=== PATIENT | female | born 1935 | race Caucasian/White ===

== ENCOUNTER → 2019-10-15 10:48 | Outpatient (BNVA) | payer MEDICARE, OTHER, SELFPAY | PROVIDERS: Family Provider Electrodiagnostic Medicine; Visit Provider Internal Medicine Cardiovascular Disease | DX: I48.91 Unspecified atrial fibrillation (principal) | CPT/HCPCS: 85610 ==

== ENCOUNTER → 2019-11-12 10:58 | Outpatient (BNVA) | payer MEDICARE, OTHER, SELFPAY | PROVIDERS: Family Provider Electrodiagnostic Medicine; Visit Provider Internal Medicine Cardiovascular Disease | DX: I48.91 Unspecified atrial fibrillation (principal) | CPT/HCPCS: 85610 ==

== ENCOUNTER → 2019-12-10 10:46 | Outpatient (BNVA) | payer MEDICARE, OTHER, SELFPAY | PROVIDERS: Family Provider Electrodiagnostic Medicine; Visit Provider Internal Medicine Cardiovascular Disease | DX: I48.91 Unspecified atrial fibrillation (principal) | CPT/HCPCS: 85610 ==

== ENCOUNTER 2020-02-07 15:20 | Outpatient (CLI) | payer MEDICARE, OTHER, SELFPAY ==
[2020-02-07 15:28] VITALS: BP 132/63; PULSE 62; RESP 16; TEMP 36.8; O2SAT 97
--- NOTE | 2020-02-07 15:29 | PC.NURSE ---
Contacted Dr. Kumar's nurse Leti regarding Creat level. States PCP aware and to proceed with Prolia orders.
[2020-02-07] MEDS: denosumab 60 mg SDV SUBCUT (15:36)
[2020-02-07 15:50] VITALS: BP 128/66; PULSE 64; RESP 16; TEMP 36.6; O2SAT 97
== END 2020-02-07 15:21 | disposition home or self-care (01) ==
LOC: RHEOACUTE 15:21
PROVIDERS: Family Provider Electrodiagnostic Medicine; PCP Electrodiagnostic Medicine; Visit Provider Internal Medicine Rheumatology
DX: M81.0 Age-related osteoporosis without current pathological fracture (principal); I48.91 Unspecified atrial fibrillation; Z79.01 Long term (current) use of anticoagulants
CPT/HCPCS: 85610; 96372; J0897

== ENCOUNTER → 2020-02-14 10:29 | Outpatient (BNVA) | payer MEDICARE, OTHER, SELFPAY | PROVIDERS: Family Provider Electrodiagnostic Medicine; PCP Electrodiagnostic Medicine; Visit Provider Internal Medicine Cardiovascular Disease | DX: I48.0 Paroxysmal atrial fibrillation (principal) | CPT/HCPCS: 85610 ==

== ENCOUNTER → 2020-02-21 10:17 | Outpatient (BNVA) | payer MEDICARE, OTHER, SELFPAY | PROVIDERS: Family Provider Electrodiagnostic Medicine; PCP Electrodiagnostic Medicine; Visit Provider Internal Medicine Cardiovascular Disease | DX: I48.0 Paroxysmal atrial fibrillation (principal) | CPT/HCPCS: 85610 ==

== ENCOUNTER → 2020-03-06 11:11 | Outpatient (BNVA) | payer MEDICARE, OTHER, SELFPAY | PROVIDERS: Family Provider Electrodiagnostic Medicine; PCP Electrodiagnostic Medicine; Visit Provider Internal Medicine Cardiovascular Disease | DX: I48.0 Paroxysmal atrial fibrillation (principal); Z79.01 Long term (current) use of anticoagulants | CPT/HCPCS: 85610 ==

== ENCOUNTER → 2020-03-13 10:34 | Outpatient (BNVA) | payer MEDICARE, OTHER, SELFPAY | PROVIDERS: Family Provider Electrodiagnostic Medicine; PCP Electrodiagnostic Medicine; Visit Provider Internal Medicine Cardiovascular Disease | DX: I48.0 Paroxysmal atrial fibrillation (principal) | CPT/HCPCS: 85610 ==

== ENCOUNTER → 2020-04-10 10:32 | Outpatient (BNVA) | payer MEDICARE, OTHER, SELFPAY | PROVIDERS: Family Provider Electrodiagnostic Medicine; PCP Electrodiagnostic Medicine; Visit Provider Internal Medicine Cardiovascular Disease | DX: I48.0 Paroxysmal atrial fibrillation (principal); Z79.01 Long term (current) use of anticoagulants | CPT/HCPCS: 85610 ==

== ENCOUNTER → 2020-04-15 13:02 | Outpatient (BNVA) | payer MEDICARE, OTHER, SELFPAY | PROVIDERS: Family Provider Electrodiagnostic Medicine; PCP Electrodiagnostic Medicine; Visit Provider Internal Medicine Rheumatology | DX: M81.0 Age-related osteoporosis without current pathological fracture (principal); Z79.899 Other long term (current) drug therapy; N18.3 Chronic kidney disease, stage 3 (moderate) | CPT/HCPCS: 99203 ==

== ENCOUNTER → 2020-05-08 10:09 | Outpatient (BNVA) | payer MEDICARE, OTHER, SELFPAY | PROVIDERS: Family Provider Electrodiagnostic Medicine; PCP Electrodiagnostic Medicine; Visit Provider Internal Medicine Cardiovascular Disease | DX: I48.0 Paroxysmal atrial fibrillation (principal) | CPT/HCPCS: 85610 ==

== ENCOUNTER 2020-05-20 08:30 | Outpatient (RCR) | payer MEDICARE, OTHER, SELFPAY | END 2020-05-26 23:59 | disposition home or self-care (01) | LOC: SPT 08:30 | PROVIDERS: PCP Electrodiagnostic Medicine; Referring Provider Electrodiagnostic Medicine; Visit Provider Electrodiagnostic Medicine | DX: R26.81 Unsteadiness on feet (principal) | CPT/HCPCS: 97110; 97161 ==

== ENCOUNTER 2020-05-27 06:00 | Outpatient (RCR) | payer MEDICARE, OTHER, SELFPAY | END 2020-06-25 23:59 | disposition home or self-care (01) | LOC: SPT 06:00 | PROVIDERS: PCP Electrodiagnostic Medicine; Referring Provider Electrodiagnostic Medicine; Visit Provider Electrodiagnostic Medicine | DX: R26.81 Unsteadiness on feet (principal) | CPT/HCPCS: 97110 ==

== ENCOUNTER → 2020-06-05 10:26 | Outpatient (BNVA) | payer MEDICARE, OTHER, SELFPAY | PROVIDERS: PCP Electrodiagnostic Medicine; Visit Provider Internal Medicine Cardiovascular Disease | DX: I48.0 Paroxysmal atrial fibrillation (principal) | CPT/HCPCS: 85610 ==

== ENCOUNTER 2020-06-06 09:23 | Outpatient (CLI) | payer MEDICARE, OTHER, SELFPAY ==
--- NOTE | 2020-06-06 09:29 | US_ITS ---
WS: [id number] ULTRASOUND RENAL TECHNIQUE: Ultrasound examination of both kidneys. CLINICAL INFORMATION: CHRONIC KIDNEY DZ STAGE 3 COMPARISON: None. FINDINGS: RIGHT: Right kidney is normal in size and appearance. Echogenicity: Normal. Cortical thickness: 1.2 cm; Normal. Hydronephrosis: None. Perinephric fluid: None. Right kidney measures: 9.4 cm x 4.7 cm x 2.8 cm. LEFT: Simple left renal cyst measuring 2.6 x 2.3 x 2.2 cm in the mid left kidney. Additional smaller renal cyst inferior pole measuring 1.5 x 1.1 x 1.7 cm Left kidney is normal in size and appearance. Echogenicity: Normal. Cortical thickness: 1.3 cm; Normal. Hydronephrosis: None. Perinephric fluid: None. Left kidney measures: 10.7 cm x 4.2 cm x 3.8 cm. Normal visualized aorta. Normal bladder. US/US renal BI* [id number] IMPRESSION: 1. No hydronephrosis in either kidney. 2. Normal bladder. 3. Left renal cysts the largest measuring 2.6 x 2.3 x 2.2 cm
== END 2020-06-06 09:24 | disposition home or self-care (01) ==
LOC: RAD 09:27
PROVIDERS: PCP Electrodiagnostic Medicine; Visit Provider Internal Medicine Nephrology
DX: N18.3 Chronic kidney disease, stage 3 (moderate) (principal); Q61.02 Congenital multiple renal cysts
CPT/HCPCS: 76770

== ENCOUNTER 2020-06-23 10:22 | Emergency (ER) | payer MEDICARE, OTHER, SELFPAY ==
[2020-06-23 10:28] VITALS: BP 157/62; PULSE 65; RESP 16; TEMP 36.9; O2SAT 99; BMI 24.2
--- NOTE | 2020-06-23 10:32 | W.ED.NAVMDI ---
HPI - Nausea/Vomiting/Diarrhea General: Chief complaint: Nausea/Vomiting/Diarrhea Stated complaint: N/V/D Time Seen by Provider: 06/23/20 10:27 History of Present Illness: HPI Narrative: 85-year-old female waning of diarrhea nausea and vomiting that started2 to 3 days ago. She denies any anosmia any cough. She has had some myalgias. No known COVID-19 exposures. Has any medic easy melena hematemesis or coffee-ground emesis no chest pain. She has had a little bit of shortness of breath. MD elicited complaint: nausea, vomiting and diarrhea Pertinent past history: abdominal surgery Onset (ago): day(s) (3) Description of vomiting: bilious Description of diarrhea: lose Associated nausea: Yes Associated abdominal pain: No Location of pain: None Exacerbating factors: none Relieving factors: none Associated symtoms: Reports fatigue, anorexia, malaise, myalgias, nausea, palpitations, short of breath and weakness; Denies altered mental status, anxiety, bloating, change in vision, chest pain, cough, diaphoresis, decreased urine output, dizziness, dysuria, epistaxis, fecal incontinence, fevers/chills, headache(s), numbness, rash, syncope, tenesmus or tinnitus Review of Systems Const: Reports: fatigue and malaise; Denies: diaphoresis Eyes: Denies: change in vision ENMT: Denies: tinnitus or epistaxis Card: Reports: palpitations; Denies: chest pain or syncope Resp: Denies: dyspnea, productive cough or non-productive cough GI: Reports: nausea; Denies: bloating or fecal incontinence : Denies: dysuria Skin/Breast: Denies: rash or pruritus Neuro: Denies: headache(s) or dizziness Psych: Denies: anxiety PFSH ED PFSH: Medical History Atrial fibrillation CKD (chronic kidney disease) stage 3, GFR 30-59 ml/min Heart disease High risk medication use Hypercholesteremia Infectious hepatitis 1968 Osteoporosis Surgical History History of resection of large bowel S/P appendectomy S/P cataract extraction S/P colonoscopy with polypectomy Family History Father Cancer Myocardial infarction CAD (coronary artery disease) Brother Cancer Myocardial infarction Stroke CAD (coronary artery disease) Sister Cancer Myocardial infarction Stroke Hypertension CAD (coronary artery disease) Mother Myocardial infarction CAD (coronary artery disease) Daughter Stroke Other Anesthesia complication Family history of premature coronary artery disease Hyperlipidemia Rheumatoid arthritis Denies family history of Lupus Social History Smoking and tobacco status: never smoked Alcohol intake: never History of recent travel: No Physical Exam Const: COMMON NORMALS: no acute distress EXAM LIMITATIONS: no altered mental status GENERAL APPEARANCE: cooperative and comfortable ORIENTATION/CONSCIOUSNESS: Yes awake, Yes oriented to person, Yes oriented to place and Yes oriented to time HENMT: COMMON NORMALS: normocephalic and hearing grossly normal bilaterally HEAD & SCALP: normocephalic Eye: COMMON NORMALS: Equal, round and reactive pupils present, EOMs intact bilaterally, conjunctivae normal and no scleral icterus CONJUNCTIVA: Yes conjunctivae normal PUPIL: Yes Equal, round and reactive pupils present Neck/C-Spine: COMMON NORMALS: no JVD Resp: COMMON NORMALS: normal respiratory effort, No retractions, No use of accessory muscles and clear to auscultation bilaterally AUSCULTATION: clear to auscultation bilaterally Cardio: COMMON NORMALS: no JVD, regular rate, regular rhythm and No murmurs present (Cardio) RATE: regular rate RHYTHM: regular rhythm GI: COMMON NORMALS: Soft to palpation and No hepatosplenomegaly present AUSCULTATION: Yes normoactive bowel sounds PALPATION: Yes Soft to palpation, No Tenderness to palpation present (GI), No Guarding due to palpation present (GI) and Yes No hepatosplenomegaly present Extremity: COMMON NORMALS: normal to inspection, capillary refill normal, no clubbing, cyanosis or edema, no calf tenderness and no pedal edema Neuro: SENSORIUM/ORIENTATION: Yes oriented to person, Yes oriented to place and Yes oriented to time Skin: COMMON NORMALS: no rashes or lesions noted GENERAL SKIN EXAM: no rashes or lesions noted Course Vital Signs: Vital signs: Vital Signs Temperature 98.4 F 06/23/20 10:28 Pulse Rate 70 06/23/20 14:21 Respiratory Rate 15 06/23/20 14:21 Blood Pressure 148/75 06/23/20 14:21 Pulse Oximetry 97 06/23/20 14:21 MDM - Nausea/Vomiting/Diarrhea MDM Narrative: Medical decision making narrative: Suspected COVID-19 infection patient's vitals are good we will go ahead and discharge home. Encourage oral fluids follow-up with primary care doctor in the next 1 to 2 days if has any further problems return to the emergency room. Tracheally encourage patient to return if she has any problems with breathing. Lab Data: Labs: Lab Results 06/23/20 06/23/20 06/23/20 Range/Units 11:00 11:00 11:00 WBC 5.7 (4.0-10.0) 10^3/ uL RBC 4.07 L (4.1-5.3) 10^6/u L Hgb 11.3 L (11.5-15.3) g/dL Hct 36.1 L (37.0-47.0) % MCV 88.7 (81-99) fL MCH 27.8 L (28.0-34.0) pg MCHC 31.3 (30.0-36.0) g/dL RDW 15.2 H (12.1-15.1) % Plt Count 169 (130-400) 10^3/c mm MPV 10.9 H (7.4-10.4) fL Neut % (Auto) 67.5 % Lymph % (Auto) 23.6 % [place] % (Auto) 6.9 % Eos % (Auto) 1.6 % Baso % (Auto) 0.2 % Neut # (Auto) 3.84 (1.8-7.7) 10^3/u L Lymph # (Auto) 1.3 (0.8-4.8) 10^3/u L [place] # (Auto) 0.4 (0.2-0.9) 10^3/u L Eos # (Auto) 0.1 (0.0-0.8) 10^3/u L Baso # (Auto) 0.0 (0.0-0.1) 10^3/u L Nucleated RBC % (a uto) 0 % Nucleated RBCs # 0.0 /100WBC Fibrinogen 599 H (174-498) mg/dL D-Dimer 0.37 (0-0.59) ug/mIFE U Sodium 138 (136-145) mmol/L Potassium 3.3 L (3.5-5.1) mmol/L Chloride 99 (98-107) mmol/L Carbon Dioxide 23 (22-29) mmol/L Anion Gap 19.3 H (5-19) BUN 39 H (8-23) mg/dL Creatinine 2.1 H (0.5-0.9) mg/dL GFR Calculation Not Reportable Glucose 124 H (65-115) mg/dL Calculated Osmolal ity 297 H (285-295) mOsm/k g Lactic Acid (0.5-2.2) mmol/L Calcium 9.4 (8.5-10.5) mg/dL Total Bilirubin 0.5 (0.15-1.2) mg/dL AST 41 H (0-32) U/L ALT 32 (0-33) U/L Alkaline Phosphata se 79 (35-105) IU/L Lactate Dehydrogen ase 230 H (135-214) U/L C-Reactive Protein 5.9 H (0.0-4.9) mg/L Total Protein 7.9 (6.6-8.7) g/dL Albumin 4.4 (3.5-5.2) g/dL Globulin 3.5 (1.3-4.6) g/dL Urine Color (Yellow) Urine Appearance (CLEAR) Urine pH (5-7) Ur Specific Gravit y (1.005-1.030) Urine Protein (Negative) Urine Glucose (UA) (Normal) Urine Ketones (Negative) Urine Blood (Negative) Urine Nitrate (Negative) Urine Bilirubin (Negative) Urine Urobilinogen (Negative) mg/dL Ur Leukocyte Breana ase (Negative) SARS-CoV-2 RNA (RT -PCR) (NOT DETECTED) 06/23/20 06/23/20 06/23/20 Range/Units 11:00 11:00 12:45 WBC (4.0-10.0) 10^3/ uL RBC (4.1-5.3) 10^6/u L Hgb (11.5-15.3) g/dL Hct (37.0-47.0) % MCV (81-99) fL MCH (28.0-34.0) pg MCHC (30.0-36.0) g/dL RDW (12.1-15.1) % Plt Count (130-400) 10^3/c mm MPV (7.4-10.4) fL Neut % (Auto) % Lymph % (Auto) % [place] % (Auto) % Eos % (Auto) % Baso % (Auto) % Neut # (Auto) (1.8-7.7) 10^3/u L Lymph # (Auto) (0.8-4.8) 10^3/u L [place] # (Auto) (0.2-0.9) 10^3/u L Eos # (Auto) (0.0-0.8) 10^3/u L Baso # (Auto) (0.0-0.1) 10^3/u L Nucleated RBC % (a uto) % Nucleated RBCs # /100WBC Fibrinogen (174-498) mg/dL D-Dimer (0-0.59) ug/mIFE U Sodium (136-145) mmol/L Potassium (3.5-5.1) mmol/L Chloride (98-107) mmol/L Carbon Dioxide (22-29) mmol/L Anion Gap (5-19) BUN (8-23) mg/dL Creatinine (0.5-0.9) mg/dL GFR Calculation Glucose (65-115) mg/dL Calculated Osmolal ity (285-295) mOsm/k g Lactic Acid 2.1 (0.5-2.2) mmol/L Calcium (8.5-10.5) mg/dL Total Bilirubin (0.15-1.2) mg/dL AST (0-32) U/L ALT (0-33) U/L Alkaline Phosphata se (35-105) IU/L Lactate Dehydrogen ase (135-214) U/L C-Reactive Protein (0.0-4.9) mg/L Total Protein (6.6-8.7) g/dL Albumin (3.5-5.2) g/dL Globulin (1.3-4.6) g/dL Urine Color Yellow (Yellow) Urine Appearance Clear (CLEAR) Urine pH 5 (5-7) Ur Specific Gravit y 1.025 (1.005-1.030) Urine Protein Neg (Negative) Urine Glucose (UA) Norm (Normal) Urine Ketones Negative (Negative) Urine Blood Neg (Negative) Urine Nitrate Negative (Negative) Urine Bilirubin Neg (Negative) Urine Urobilinogen Norm (Negative) mg/dL Ur Leukocyte Breana ase Negative (Negative) SARS-CoV-2 RNA (RT -PCR) Detected A (NOT DETECTED) Discharge Plan Discharge Patient Disposition: Home Clinical Impression: Suspected COVID-19 virus infection Condition: Stable Prescriptions: No Action diltiazem HCl 180 mg capsule,extended release 24hr 180 mg PO DAILY RF: 0 lisinopril-hydrochlorothiazide 20-25 mg tablet 1 tab PO DAILY RF: 0 atorvastatin 20 mg tablet 20 mg PO DAILY RF: 0 warfarin 3 mg tablet 3 mg PO DIRECTED Qty: 90 RF: 3 metoprolol succinate 100 mg tablet extended release 24 hr 100 mg PO DAILY 90 Days Qty: 90 RF: 3 metoprolol succinate 25 mg tablet extended release 24 hr 25 mg PO DAILY 90 Days Qty: 90 RF: 3 warfarin 1 mg tablet 1 mg PO DIRECTED Qty: 90 RF: 3 Vitamin D3 25 mcg (1,000 unit) Capsule 50 mcg PO DAILY RF: 0 Lasix 20 mg Tablet 20 mg PO DAILY RF: 0 Discharge Orders: Discharge Order (Routine); Ordered 06/23/20 Ordered By: Zachariah Queen Referrals: Michael Kumar, DO [Primary Care Provider] - Activity Restrictions/Additional Instructions: Suspect you do have COVID-19 infection. Recommend that you remain in self quarantine until the results are available. If you have worsening difficulty with breathing return immediately. Discharge Date/Time: 06/23/20 14:22 Coding Level of Care Code ED Improvement Lead for Lane Fwd Exam Comprehensive
--- NOTE | 2020-06-23 10:41 | XRR_ITS ---
PROCEDURE INFORMATION: Exam: XR Chest, 1 View Exam date and time: 06/23/2020 10:42 AM Age: 85 years old Clinical indication: Dyspnea TECHNIQUE: Imaging protocol: XR of the chest Views: 1 view. COMPARISON: CR Chest 1 [place] [id number] 09/08/2018 6:30 PM FINDINGS: Lungs: Interstitial prominence and questionable left basilar airspace disease, which can be better evaluated with PA and lateral chest radiographs, if clinically indicated. Pleural space: No significant pleural effusion. Heart/Mediastinum: No cardiomegaly. Bones/joints: Osteopenia and degenerative change. Other findings: Brassiere artifact. XR/XR chest 1V portable [id number] IMPRESSION: Interstitial prominence and questionable left basilar airspace disease, which can be better evaluated with PA and lateral chest radiographs, if clinically indicated.
[2020-06-23 11:22] LABS: Basophils % 0.2 %; Eosinophils # 0.1 10^3/uL (0.0-0.8); Eosinophils % 1.6 %; Hematocrit 36.1 % (37.0-47.0); Hemoglobin 11.3 g/dL (11.5-15.3); Lymphocytes # 1.3 10^3/uL (0.8-4.8); Lymphocytes % 23.6 %; Mean Corpuscular HGB Conc 31.3 g/dL (30.0-36.0); Mean Corpuscular Hemoglobin 27.8 pg (28.0-34.0); Mean Corpuscular Volume 88.7 fL (81-99); Mean Platelet Volume 10.9 fL (7.4-10.4); Monocytes # 0.4 10^3/uL (0.2-0.9); Monocytes % 6.9 %; Neutrophils # 3.84 10^3/uL (1.8-7.7); Neutrophils % 67.5 %; Nucleated Red Blood Cells % 0 %; Platelet Count 169 10^3/cmm (130-400); Red Blood Count 4.07 10^6/uL (4.1-5.3); Red Cell Distribution Width 15.2 % (12.1-15.1); White Blood Count 5.7 10^3/uL (4.0-10.0)
[2020-06-23 11:23] VITALS: BP 132/64; BP 137/55; BP 93/56; PULSE 56; PULSE 64; PULSE 76
[2020-06-23] MEDS: sodium chloride 0.9% 500 ML 999 ML IV (11:27)
[2020-06-23 11:34] LABS: Fibrinogen 599 mg/dL (174-498)
[2020-06-23 11:36] LABS: D Dimer 0.37 ug/mIFEU (0-0.59)
[2020-06-23 11:40] LABS: Alanine Aminotransferase 32 U/L (0-33); Albumin Level 4.4 g/dL (3.5-5.2); Alkaline Phosphatase 79 IU/L (35-105); Anion Gap 19.3 (5-19); Aspartate Amino Transferase 41 U/L (0-32); Blood Urea Nitrogen 39 mg/dL (8-23); C Reactive Protein 5.9 mg/L (0.0-4.9); Calcium 9.4 mg/dL (8.5-10.5); Carbon Dioxide 23 mmol/L (22-29); Chloride 99 mmol/L (98-107); Globulin 3.5 g/dL (1.3-4.6); Glucose 124 mg/dL (65-115); Lactate Dehydrogenase 230 U/L (135-214); Lactic Sepsis W/Reflex 2.1 mmol/L (0.5-2.2); Osmolality Calculated 297 mOsm/kg (285-295); Potassium 3.3 mmol/L (3.5-5.1); Sodium 138 mmol/L (136-145); Total Bilirubin 0.5 mg/dL (0.15-1.2); Total Protein 7.9 g/dL (6.6-8.7)
--- NOTE | 2020-06-23 12:38 | PC.NURSE ---
Read and agree with assessment.
[2020-06-23] MEDS: potassium chloride oral liq 20 mEq/15 mL UDC 40 MEQ PO (12:48)
[2020-06-23] MEDS: ondansetron 2 mg/ML SDV 2 mL 4 MG IVP (12:48)
[2020-06-23 12:57] LABS: Add Urine Microscopic? NO
[2020-06-23 13:01] LABS: Bilirubin Urine Neg (Negative); Blood Urine Neg (Negative); Glucose Urine UA Norm (Normal); Ketones Urine Negative (Negative); Leukocyte Esterase Urine Negative (Negative); Nitrate Urine Negative (Negative); Protein Urine Neg (Negative); Specific Gravity, Urine 1.025 (1.005-1.030); Urine Appearance Clear (CLEAR); Urine Color Yellow (Yellow); Urobilinogen Urine Norm (Negative); pH Urine 5 (5-7)
[2020-06-23 13:03] LABS: Reflex Lactate Order REFLEX LACTIC ORDERD
[2020-06-23 14:08] VITALS: PULSE 61; RESP 18; O2SAT 100
[2020-06-23 14:21] VITALS: BP 148/75; PULSE 70; RESP 15; O2SAT 97
[2020-06-24 19:12] LABS: Quest SARS-CoV-2 RNA DETECTED (NOT DETECTED)
--- NOTE | 2020-06-25 09:31 | PC.NURSE ---
pt called and given the results of her covid test
== END 2020-06-23 14:22 | disposition home or self-care (01) ==
PROVIDERS: Emergency Provider Family Medicine; PCP Electrodiagnostic Medicine
DX: U07.1 COVID-19 (principal); Z79.01 Long term (current) use of anticoagulants; I48.91 Unspecified atrial fibrillation; N18.3 Chronic kidney disease, stage 3 (moderate)
CPT/HCPCS: 12345; 71045; 80053; 81003; 83605; 83615; 85025; 85378; 85384; 86140; 87635; 96374; 99283; 99284; J2405; J7040

== ENCOUNTER → 2020-07-17 10:43 | Outpatient (BNVA) | payer MEDICARE, OTHER, SELFPAY | PROVIDERS: PCP Electrodiagnostic Medicine; Visit Provider Internal Medicine Cardiovascular Disease | DX: I48.0 Paroxysmal atrial fibrillation (principal) | CPT/HCPCS: 85610 ==

== ENCOUNTER → 2020-07-29 10:03 | Outpatient (BNVA) | payer MEDICARE, OTHER, SELFPAY | PROVIDERS: PCP Electrodiagnostic Medicine; Visit Provider Internal Medicine Rheumatology | DX: Z79.899 Other long term (current) drug therapy (principal) | CPT/HCPCS: 36415; 82310; 82565 ==

== ENCOUNTER 2020-08-11 10:40 | Outpatient (CLI) | payer MEDICARE, OTHER, SELFPAY ==
[2020-08-11 10:30] VITALS: BP 120/60; PULSE 66; RESP 18; TEMP 36.8; O2SAT 98
[2020-08-11 10:45] VITALS: BMI 30.3
[2020-08-11] MEDS: denosumab 60 mg SDV SUBCUT (10:46)
[2020-08-11 11:14] VITALS: BP 123/58; PULSE 16; RESP 16; TEMP 36.2; O2SAT 98
== END 2020-08-11 10:41 | disposition home or self-care (01) ==
LOC: RHEOACUTE 10:41
PROVIDERS: Family Provider Electrodiagnostic Medicine; PCP Electrodiagnostic Medicine; Visit Provider Internal Medicine Rheumatology
DX: M81.0 Age-related osteoporosis without current pathological fracture (principal); N18.30 Chronic kidney disease, stage 3 unspecified; Z79.899 Other long term (current) drug therapy
CPT/HCPCS: 96372; 99213; J0897

== ENCOUNTER → 2020-08-25 10:45 | Outpatient (BNVA) | payer MEDICARE, OTHER, SELFPAY | PROVIDERS: PCP Electrodiagnostic Medicine; Visit Provider Internal Medicine Cardiovascular Disease | DX: I48.0 Paroxysmal atrial fibrillation (principal) | CPT/HCPCS: 85610 ==

== ENCOUNTER → 2020-09-22 10:39 | Outpatient (BNVA) | payer MEDICARE, OTHER, SELFPAY | PROVIDERS: PCP Electrodiagnostic Medicine; Visit Provider Internal Medicine Cardiovascular Disease | DX: I48.0 Paroxysmal atrial fibrillation (principal) | CPT/HCPCS: 85610 ==

== ENCOUNTER → 2020-09-29 14:43 | Outpatient (BNVA) | payer MEDICARE, OTHER, SELFPAY | PROVIDERS: PCP Electrodiagnostic Medicine; Visit Provider Internal Medicine Cardiovascular Disease | DX: I48.0 Paroxysmal atrial fibrillation (principal) | CPT/HCPCS: 85610 ==

== ENCOUNTER → 2020-10-06 10:12 | Outpatient (BNVA) | payer MEDICARE, OTHER, SELFPAY | PROVIDERS: PCP Electrodiagnostic Medicine; Visit Provider Internal Medicine Cardiovascular Disease | DX: I48.0 Paroxysmal atrial fibrillation (principal) | CPT/HCPCS: 85610 ==

== ENCOUNTER → 2020-10-20 10:52 | Outpatient (BNVA) | payer MEDICARE, OTHER, SELFPAY | PROVIDERS: PCP Electrodiagnostic Medicine; Visit Provider Internal Medicine Cardiovascular Disease | DX: I48.0 Paroxysmal atrial fibrillation (principal) | CPT/HCPCS: 85610 ==

== ENCOUNTER → 2020-10-27 10:41 | Outpatient (BNVA) | payer MEDICARE, OTHER, SELFPAY | PROVIDERS: PCP Electrodiagnostic Medicine; Visit Provider Internal Medicine Cardiovascular Disease | DX: I48.0 Paroxysmal atrial fibrillation (principal) | CPT/HCPCS: 85610 ==

== ENCOUNTER → 2020-11-17 10:08 | Outpatient (BNVA) | payer MEDICARE, OTHER, SELFPAY | PROVIDERS: PCP Electrodiagnostic Medicine; Visit Provider Internal Medicine Cardiovascular Disease | DX: I48.0 Paroxysmal atrial fibrillation (principal) | CPT/HCPCS: 85610 ==

== ENCOUNTER → 2020-11-24 10:07 | Outpatient (BNVA) | payer MEDICARE, OTHER, SELFPAY | PROVIDERS: PCP Electrodiagnostic Medicine; Visit Provider Internal Medicine Cardiovascular Disease | DX: I48.0 Paroxysmal atrial fibrillation (principal) | CPT/HCPCS: 85610 ==

== ENCOUNTER 2021-01-06 15:01 | Outpatient (CLI) | payer MEDICARE, OTHER, SELFPAY ==
--- NOTE | 2021-01-06 15:13 | XR_ITS ---
WS: [id number] SCREENING DEXA SCAN Pax8 CLINICAL INFORMATION: OSTEOPOROSIS, VITAMIN D DEFICIENCY COMPARISON: 019 FINDINGS: The L1-L4 bone mineral density measures 0.921 g/cm2. This corresponds to a T score score of -2.2 and Z score of -0.9. Left femoral neck bone mineral density measures 0.947 g/cm2. This corresponds to a T score of -0.5 an d Z score of 1.3. Right femoral neck bone mineral density measures 0.960 g/cm2. This corresponds to a T score -0.4of an d Z score of 1.4. Mean femoral neck bone mineral density measures 0.954 g/cm2. This corresponds to a T score of -0.4 an d Z score of 1.3. XR/XR DEXA axial skeleton* [id number] IMPRESSION: Osteopenia Patient's FRAX calculated 10 year probability for major osteoporotic fracture i s 12.8 % and osteoporotic hip fracture is 3.2%.
== END 2021-01-06 15:02 | disposition home or self-care (01) ==
LOC: RADWPI 15:10
PROVIDERS: PCP Electrodiagnostic Medicine; Visit Provider Electrodiagnostic Medicine
DX: M81.0 Age-related osteoporosis without current pathological fracture (principal); E55.9 Vitamin D deficiency, unspecified; M85.89 Other specified disorders of bone density and structure, multiple sites; I48.0 Paroxysmal atrial fibrillation
CPT/HCPCS: 77080; 85610

== ENCOUNTER 2021-02-04 14:38 | Outpatient (CLI) | payer MEDICARE, OTHER, SELFPAY ==
[2021-02-04 15:11] LABS: Basophils # 0.1 10^3/uL (0.0-0.1); Basophils % 0.6 %; Eosinophils # 0.4 10^3/uL (0.0-0.8); Eosinophils % 4.8 %; Hematocrit 34.3 % (37.0-47.0); Hemoglobin 10.6 g/dL (11.5-15.3); Lymphocytes # 2.2 10^3/uL (0.8-4.8); Lymphocytes % 25.2 %; Mean Corpuscular HGB Conc 30.9 g/dL (30.0-36.0); Mean Corpuscular Hemoglobin 28.4 pg (28.0-34.0); Mean Platelet Volume 11.1 fL (7.4-10.4); Monocytes # 0.5 10^3/uL (0.2-0.9); Neutrophils # 5.43 10^3/uL (1.8-7.7); Neutrophils % 63.2 %; Nucleated Red Blood Cells % 0 %; Platelet Count 214 10^3/cmm (130-400); Red Blood Count 3.73 10^6/uL (4.1-5.3); Red Cell Distribution Width 14.8 % (12.1-15.1); White Blood Count 8.6 10^3/uL (4.0-10.0)
[2021-02-04 15:29] LABS: Alanine Aminotransferase 15 U/L (0-33); Albumin Level 3.7 g/dL (3.5-5.2); Alkaline Phosphatase 96 IU/L (35-105); Aspartate Amino Transferase 22 U/L (0-32); Globulin 3.3 g/dL (1.3-4.6); Total Bilirubin 0.4 mg/dL (0.15-1.2)
== END 2021-02-04 14:39 | disposition home or self-care (01) ==
LOC: LAB 14:43
PROVIDERS: PCP Electrodiagnostic Medicine; Visit Provider Internal Medicine Rheumatology
DX: M81.0 Age-related osteoporosis without current pathological fracture (principal); Z79.899 Other long term (current) drug therapy
CPT/HCPCS: 36415; 80076; 82565; 85025

== ENCOUNTER → 2021-02-05 10:20 | Outpatient (BNVA) | payer MEDICARE, OTHER, SELFPAY | PROVIDERS: PCP Electrodiagnostic Medicine; Visit Provider Internal Medicine Cardiovascular Disease | DX: I48.0 Paroxysmal atrial fibrillation (principal) | CPT/HCPCS: 85610 ==

== ENCOUNTER → 2021-02-11 10:53 | Outpatient (BNVA) | payer MEDICARE, OTHER, SELFPAY | PROVIDERS: PCP Electrodiagnostic Medicine; Visit Provider Internal Medicine Rheumatology | DX: M81.0 Age-related osteoporosis without current pathological fracture (principal); Z79.899 Other long term (current) drug therapy; N18.30 Chronic kidney disease, stage 3 unspecified | CPT/HCPCS: 36415; 82040; 82306; 82310; 99214 ==

== ENCOUNTER 2021-02-26 13:28 | Outpatient (CLI) | payer MEDICARE, OTHER, SELFPAY ==
[2021-02-26 13:48] VITALS: BP 152/72; PULSE 64; RESP 18; TEMP 36.3; O2SAT 98
[2021-02-26] MEDS: denosumab 60 mg SDV SUBCUT (14:10)
[2021-02-26 14:19] VITALS: BP 160/66; PULSE 55; RESP 18; TEMP 36.3; O2SAT 99
== END 2021-02-26 13:29 | disposition home or self-care (01) ==
PROVIDERS: PCP Electrodiagnostic Medicine; Referring Provider Internal Medicine Rheumatology; Visit Provider Internal Medicine Rheumatology
DX: M81.0 Age-related osteoporosis without current pathological fracture (principal)
CPT/HCPCS: 96372; J0897

== ENCOUNTER → 2021-03-05 10:22 | Outpatient (BNVA) | payer MEDICARE, OTHER, SELFPAY | PROVIDERS: PCP Electrodiagnostic Medicine; Visit Provider Internal Medicine Cardiovascular Disease | DX: I48.0 Paroxysmal atrial fibrillation (principal) | CPT/HCPCS: 85610 ==

== ENCOUNTER → 2021-04-02 10:14 | Outpatient (BNVA) | payer MEDICARE, OTHER, SELFPAY | PROVIDERS: PCP Electrodiagnostic Medicine; Visit Provider Internal Medicine Cardiovascular Disease | DX: I48.0 Paroxysmal atrial fibrillation (principal); Z79.01 Long term (current) use of anticoagulants | CPT/HCPCS: 85610 ==

== ENCOUNTER → 2021-04-30 10:22 | Outpatient (BNVA) | payer MEDICARE, OTHER, SELFPAY | PROVIDERS: PCP Electrodiagnostic Medicine; Visit Provider Internal Medicine Cardiovascular Disease | DX: I48.0 Paroxysmal atrial fibrillation (principal) | CPT/HCPCS: 85610 ==

== ENCOUNTER → 2021-05-27 10:10 | Outpatient (BNVA) | payer MEDICARE, OTHER, SELFPAY | PROVIDERS: PCP Electrodiagnostic Medicine; Visit Provider Internal Medicine Cardiovascular Disease | DX: I48.0 Paroxysmal atrial fibrillation (principal); Z79.01 Long term (current) use of anticoagulants | CPT/HCPCS: 85610 ==

== ENCOUNTER → 2021-06-03 10:12 | Outpatient (BNVA) | payer MEDICARE, OTHER, SELFPAY | PROVIDERS: PCP Electrodiagnostic Medicine; Visit Provider Internal Medicine Cardiovascular Disease | DX: I48.0 Paroxysmal atrial fibrillation (principal); Z79.01 Long term (current) use of anticoagulants | CPT/HCPCS: 85610 ==

== ENCOUNTER → 2021-06-29 14:10 | Outpatient (BNVA) | payer MEDICARE, OTHER, SELFPAY | PROVIDERS: PCP Electrodiagnostic Medicine; Visit Provider Internal Medicine Cardiovascular Disease | DX: I48.0 Paroxysmal atrial fibrillation (principal) | CPT/HCPCS: 85610 ==

== ENCOUNTER → 2021-07-27 10:47 | Outpatient (BNVA) | payer MEDICARE, OTHER, SELFPAY | PROVIDERS: PCP Electrodiagnostic Medicine; Visit Provider Internal Medicine Cardiovascular Disease | DX: I48.0 Paroxysmal atrial fibrillation (principal); Z79.01 Long term (current) use of anticoagulants | CPT/HCPCS: 85610 ==

== ENCOUNTER → 2021-08-24 10:42 | Outpatient (BNVA) | payer MEDICARE, OTHER, SELFPAY | PROVIDERS: PCP Electrodiagnostic Medicine; Visit Provider Internal Medicine Cardiovascular Disease | DX: I48.0 Paroxysmal atrial fibrillation (principal); Z79.01 Long term (current) use of anticoagulants | CPT/HCPCS: 85610 ==

== ENCOUNTER 2021-08-31 12:57 | Outpatient (CLI) | payer MEDICARE, OTHER, SELFPAY ==
[2021-08-31 15:02] LABS: Albumin Level 4.2 g/dL (3.5-5.2); Calcium 9.3 mg/dL (8.5-10.5)
[2021-08-31 15:49] VITALS: BP 155/68; PULSE 55; RESP 18; TEMP 36; O2SAT 98
[2021-08-31] MEDS: denosumab 60 mg SDV SUBCUT (15:53)
[2021-09-05 14:06] LABS: Vit D 1,25 (Oh)2, Total 34 pg/mL (18-72); Vit D2 1,25 (Oh)2 <8 pg/mL; Vit D3 1,25 (Oh)2 34 pg/mL
== END 2021-08-31 12:58 | disposition home or self-care (01) ==
LOC: ONCMED 13:00
PROVIDERS: Internal Medicine Rheumatology; PCP Electrodiagnostic Medicine; Visit Provider Internal Medicine Medical Oncology
DX: M81.0 Age-related osteoporosis without current pathological fracture (principal); E55.9 Vitamin D deficiency, unspecified; I48.0 Paroxysmal atrial fibrillation; Z79.899 Other long term (current) drug therapy
CPT/HCPCS: 36415; 82040; 82310; 82565; 82652; 85610; 96372; J0897

== ENCOUNTER → 2021-09-14 10:49 | Outpatient (BNVA) | payer MEDICARE, OTHER, SELFPAY | PROVIDERS: PCP Electrodiagnostic Medicine; Visit Provider Internal Medicine Cardiovascular Disease | DX: I48.0 Paroxysmal atrial fibrillation (principal); Z79.01 Long term (current) use of anticoagulants | CPT/HCPCS: 85610 ==

== ENCOUNTER → 2021-10-12 10:44 | Outpatient (BNVA) | payer MEDICARE, OTHER, SELFPAY | PROVIDERS: PCP Electrodiagnostic Medicine; Visit Provider Internal Medicine Cardiovascular Disease | DX: I48.0 Paroxysmal atrial fibrillation (principal) | CPT/HCPCS: 85610 ==

== ENCOUNTER → 2021-11-09 10:34 | Outpatient (BNVA) | payer MEDICARE, OTHER, SELFPAY | PROVIDERS: PCP Electrodiagnostic Medicine; Visit Provider Internal Medicine Cardiovascular Disease | DX: I48.0 Paroxysmal atrial fibrillation (principal) | CPT/HCPCS: 85610 ==

== ENCOUNTER → 2021-12-14 10:46 | Outpatient (BNVA) | payer MEDICARE, OTHER, SELFPAY | PROVIDERS: PCP Electrodiagnostic Medicine; Visit Provider Internal Medicine Cardiovascular Disease | DX: I48.0 Paroxysmal atrial fibrillation (principal); Z79.01 Long term (current) use of anticoagulants | CPT/HCPCS: 85610 ==

== ENCOUNTER → 2022-01-11 10:40 | Outpatient (BNVA) | payer MEDICARE, OTHER, SELFPAY | PROVIDERS: PCP Electrodiagnostic Medicine; Visit Provider Internal Medicine Cardiovascular Disease | DX: I48.0 Paroxysmal atrial fibrillation (principal); Z79.01 Long term (current) use of anticoagulants | CPT/HCPCS: 85610 ==

== ENCOUNTER → 2022-01-25 10:51 | Outpatient (BNVA) | payer MEDICARE, OTHER, SELFPAY | PROVIDERS: PCP Electrodiagnostic Medicine; Visit Provider Internal Medicine Cardiovascular Disease | DX: Z79.01 Long term (current) use of anticoagulants (principal) | CPT/HCPCS: 85610 ==

== ENCOUNTER → 2022-02-25 10:34 | Outpatient (BNVA) | payer MEDICARE, OTHER, SELFPAY | PROVIDERS: PCP Electrodiagnostic Medicine; Visit Provider Internal Medicine Cardiovascular Disease | DX: Z79.01 Long term (current) use of anticoagulants (principal) | CPT/HCPCS: 85610 ==

== ENCOUNTER 2022-03-03 09:15 | Outpatient (CLI) | payer MEDICARE, OTHER, SELFPAY ==
[2022-03-03 10:08] LABS: Albumin Level 4.2 g/dL (3.5-5.2); Calcium 9.8 mg/dL (8.5-10.5)
[2022-03-03 10:20] VITALS: BP 126/71; PULSE 48; RESP 16; TEMP 36.2; O2SAT 99
[2022-03-03 10:23] LABS: 25 Hydroxy Vitamin D 52 ng/mL (30-100)
[2022-03-03] MEDS: denosumab 60 mg SDV SUBCUT (10:25)
[2022-03-03 10:30] VITALS: BP 145/57; PULSE 46; RESP 16; TEMP 36.2; O2SAT 97
== END 2022-03-03 09:16 | disposition home or self-care (01) ==
PROVIDERS: PCP Electrodiagnostic Medicine; Referring Provider Internal Medicine Rheumatology; Visit Provider Internal Medicine Rheumatology
DX: M81.0 Age-related osteoporosis without current pathological fracture (principal)
CPT/HCPCS: 36415; 82040; 82306; 82310; 82565; 96372; J0897

== ENCOUNTER → 2022-03-04 10:30 | Outpatient (BNVA) | payer MEDICARE, OTHER, SELFPAY | PROVIDERS: PCP Electrodiagnostic Medicine; Visit Provider Internal Medicine Cardiovascular Disease | DX: Z79.01 Long term (current) use of anticoagulants (principal) | CPT/HCPCS: 85610 ==

== ENCOUNTER → 2022-03-11 10:32 | Outpatient (BNVA) | payer MEDICARE, OTHER, SELFPAY | PROVIDERS: PCP Electrodiagnostic Medicine; Visit Provider Internal Medicine Cardiovascular Disease | DX: Z79.01 Long term (current) use of anticoagulants (principal) | CPT/HCPCS: 85610 ==

== ENCOUNTER → 2022-04-12 10:00 | Outpatient (BNVA) | payer MEDICARE, OTHER, SELFPAY | PROVIDERS: PCP Electrodiagnostic Medicine; Visit Provider Internal Medicine Cardiovascular Disease | DX: Z79.01 Long term (current) use of anticoagulants (principal) | CPT/HCPCS: 85610 ==

== ENCOUNTER → 2022-05-10 10:14 | Outpatient (BNVA) | payer MEDICARE, OTHER, SELFPAY | PROVIDERS: PCP Electrodiagnostic Medicine; Visit Provider Internal Medicine Cardiovascular Disease | DX: I48.0 Paroxysmal atrial fibrillation (principal) | CPT/HCPCS: 85610 ==

== ENCOUNTER 2022-06-06 13:57 | Inpatient (IN) | payer MEDICARE, OTHER, SELFPAY ==
[2022-06-06] VITALS (30 sets, daily range): BP systolic 126–168; BP diastolic 56–107; PULSE 73–132; RESP 12–30; TEMP 36.6–36.9; O2SAT 92–99; BMI 29.8; BMI 29.7
--- NOTE | 2022-06-06 14:05 | XRR_ITS ---
PROCEDURE INFORMATION: Exam: XR Chest Exam date and time: 06/06/2022 2:41 PM Age: 87 years old Clinical indication: Shortness of breath; Patient HX: Partial colon removal xseveral yrs ago; Pts family states she fell thurs; Additional info: SOB, dizziness TECHNIQUE: Imaging protocol: Radiologic exam of the chest. Views: 1 view. COMPARISON: CR XR chest 1V portable [id number] 06/23/2020 10:48 AM FINDINGS: Lungs: The lung bases are suboptimally assessed due to technique however the upper lungs are clear of focal consolidation. Pleural spaces: Unremarkable. No pleural effusion. No pneumothorax. Heart/Mediastinum: Cardiac silhouette appears normal in size. No obvious vascular congestion. Bones/joints: No acute osseous findings. Osteopenia. Other findings: Single view was submitted. XR/XR chest 1V portable [id number] IMPRESSION: No obvious acute consolidation. Suboptimal lung base assessment. Followup including lateral view may be obtained if clinically indicated.
--- NOTE | 2022-06-06 14:09 | ED_ITS ---
HPI - Dizziness General: Chief Complaint: Dizziness Stated Complaint: LIGHT HEADED/ FALL LAST WEEK Time Seen by Provider: 06/06/22 13:59 History of Present Illness: HPI Narrative: 87-year-old female presents with dizziness. Patient has been dizzy for about a week after she was diagnosed with COVID.. It gets worse when she stands up or sits up quickly. Patient is wearing a TLSO brace from a fall that happened last week with some lower lumbar compression fracture. Patient denies any chest pain. She does report that she is not peeing as much normal. Maybe little bit of shortness of breath. She denies any fever, chills, nausea or vomiting. Patient does report that at the time of her fall she had COVID and tested positive on 06/01/2022 but feels like she should be over that by now. Patient does have a history of A. fib and is currently on Coumadin. Associated symptoms: Denies chest pain, chills, headache(s), nausea, palpitations or vomiting Associated neuro symptoms: Deny numbness in extremities Review of Systems Const: Reports: fatigue; Denies: fever(s) or chills Eyes: Denies: change in vision or blurry vision ENMT: Reports: throat pain; Denies: ear or mastoid pain Card: Reports: lightheadedness and pre-syncope; Denies: chest pain or palpitations Resp: Reports: dyspnea; Denies: productive cough, wheezing or pain on inspiration GI: Denies: abdominal pain, nausea or vomiting : Reports: oliguria; Denies: flank pain Musc: Denies: neck pain or back pain Skin/Breast: Denies: rash or erythema Neuro: Denies: headache(s) or numbness in extremities Psych: Denies: anxiety or depression [facility] ED PFSH: Medical History (Updated 06/06/22 @ 17:32 by Aryan Decker DO) Atrial fibrillation CKD (chronic kidney disease) stage 3, GFR 30-59 ml/min Heart disease High risk medication use Hypercholesteremia Infectious hepatitis 1968 Osteoporosis Surgical History History of resection of large bowel S/P appendectomy S/P cataract extraction S/P colonoscopy with polypectomy Family History Father Cancer Myocardial infarction CAD (coronary artery disease) Brother Cancer Myocardial infarction Stroke CAD (coronary artery disease) Sister Cancer Myocardial infarction Stroke Hypertension CAD (coronary artery disease) Mother Myocardial infarction CAD (coronary artery disease) Daughter Stroke Other Anesthesia complication Family history of premature coronary artery disease Hyperlipidemia Rheumatoid arthritis Denies family history of Lupus Social History Alcohol intake: never History of recent travel: No Physical Exam Const: COMMON NORMALS: no acute distress and patient oriented x3 GENERAL APPEARANCE: cooperative and other (TLSO brace in place) HENMT: COMMON NORMALS: normocephalic and hearing grossly normal bilaterally HEAD & SCALP: normocephalic Resp: COMMON NORMALS: normal respiratory effort, No use of accessory muscles and clear to auscultation bilaterally EFFORT & INSPECTION: Yes able to speak in complete sentences AUSCULTATION: clear to auscultation bilaterally Cardio: RATE: tachycardic RHYTHM: abnormal rhythm regularly irregular GI: COMMON NORMALS: Soft to palpation and non-tender PALPATION: Yes Soft to palpation Extremity: COMMON NORMALS: normal to inspection, full ROM and capillary refill normal Neuro: COMMON NORMALS: patient oriented x3, CN's II-XII intact bilaterally, mo ves all extremities and no focal motor deficits Psych: COMMON NORMALS: mental status grossly normal, cooperative and speech normal SPEECH: Yes normal speech Skin: COMMON NORMALS: no rashes or lesions noted GENERAL SKIN EXAM: no rashes or lesions noted Course Vital Signs: Vital signs: Vital Signs Temperature 97.9 F 06/06/22 14:03 Pulse Rate 77 06/06/22 15:47 Respiratory Rate 16 06/06/22 15:47 Blood Pressure 127/73 06/06/22 15:47 Pulse Oximetry 97 06/06/22 15:47 Oxygen Delivery Me thod 06/06/22 15:47 MDM - Dizziness Medical Decision Making Patient remains symptomatic despite IV fluids and decrease her heart rate with Cardizem. After attempting to ambulate her heart rate did jump back up and exacerbated her atrial fibrillation so I did provide her another IV Cardizem and 60 mill equivalents p.o. Cardizem. Discussed with Dr. Loyola. We will admit patient for observation. I suspect that her symptoms are likely COVID related since her symptoms get worse with activity. She does not complain of any chest pain, shortness of breath just increased heart rate with activity and significant dizziness. We will obtain a CT head. Patient was admitted in stable condition Lab Data : 06/06/22 14:35 06/06/22 16:16 Radiology Impressions Chest X-Ray 06/06/22 14:05 IMPRESSION: No obvious acute consolidation. Suboptimal lung base assessment. Followup including lateral view may be obtained if clinically indicated. Laboratory Results WBC 11.0 10^3/uL (4.0-10.0) H 06/06/22 14:35 RBC 4.08 10^6/uL (4.1-5.3) L 06/06/22 14:35 Hgb 11.5 g/dL (11.5-15.3) 06/06/22 14:35 Hct 35.6 % (37.0-47.0) L 06/06/22 14:35 MCV 87.3 fl (81-99) 06/06/22 14:35 MCH 28.2 pg (28.0-34.0) 06/06/22 14:35 MCHC 32.3 g/dL (30.0-36.0) 06/06/22 14:35 RDW 15.1 % (12.1-15.1) 06/06/22 14:35 Plt Count 246 10^3/cmm (130-400) 06/06/22 14:35 MPV 11.3 fL (7.4-10.4) H 06/06/22 14:35 Neut % (Auto) 73.9 % 06/06/22 14:35 Lymph % (Auto) 18.8 % 06/06/22 14:35 [place] % (Auto) 5.5 % 06/06/22 14:35 Eos % (Auto) 0.9 % 06/06/22 14:35 Baso % (Auto) 0.3 % 06/06/22 14:35 Neut # (Auto) 8.12 10^3/uL (1.8-7.7) H 06/06/22 14:35 Lymph # (Auto) 2.1 10^3/uL (0.8-4.8) 06/06/22 14:35 [place] # (Auto) 0.6 10^3/uL (0.2-0.9) 06/06/22 14:35 Eos # (Auto) 0.1 10^3/uL (0.0-0.8) 06/06/22 14:35 Baso # (Auto) 0.0 10^3/uL (0.0-0.1) 06/06/22 14:35 Nucleated RBC % (auto) 0 % 06/06/22 14:35 Nucleated RBCs # 0.0 /100WBC 06/06/22 14:35 Sodium 137 mmol/L (136-145) 06/06/22 16:16 Potassium 3.9 mmol/L (3.5-5.1) 06/06/22 16:16 Chloride 98 mmol/L (98-107) 06/06/22 16:16 Carbon Dioxide 27 mmol/L (22-29) 06/06/22 16:16 Anion Gap 15.9 (5-19) 06/06/22 16:16 BUN 29 mg/dL (8-23) H 06/06/22 16:16 Creatinine 1.2 mg/dL (0.5-0.9) H 06/06/22 16:16 GFR Calculation Not Reportable 06/06/22 16:16 Glucose 101 mg/dL (65-115) 06/06/22 16:16 Calculated Osmolality 290 mOsm/kg (285-295) 06/06/22 16:16 Calcium 9.4 mg/dL (8.5-10.5) 06/06/22 16:16 Magnesium 1.6 mg/dL (1.7-2.3) L 06/06/22 16:16 Total Bilirubin 0.5 mg/dL (0.15-1.2) 06/06/22 16:16 AST 20 U/L (0-32) 06/06/22 16:16 ALT 15 U/L (0-33) 06/06/22 16:16 Alkaline Phosphatase 85 U/L (35-105) 06/06/22 16:16 Total Protein 7.0 g/dL (6.6-8.7) 06/06/22 16:16 Albumin 3.2 g/dL (3.5-5.2) L 06/06/22 16:16 Globulin 3.8 g/dL (1.3-4.6) 06/06/22 16:16 EKG Data EKG 1: I personally reviewed and interpreted this EKG as follows: EKG interpretation date: 06/06/22 EKG interpretation time: 14:38 Interpretation: Atrial fib, heart rate 103. QT 456. No acute changes Discharge Plan Discharge Patient Disposition: Admitted As Inpatient Clinical Impression: Atrial fibrillation, Dizziness on standing Condition: Stable Prescriptions: No Action atorvastatin 20 mg tablet 20 mg PO DAILY Qty: 90 3RF diltiazem HCl 240 mg capsule,extended release 24hr 240 mg PO DAILY Qty: 90 3RF Lasix 20 mg tablet 20 mg PO DAILY Qty: 90 3RF lisinopril-hydrochlorothiazide 20-25 mg tablet 1 tab PO DAILY Qty: 90 3RF metoprolol succinate 25 mg tablet extended release 24 hr 25 mg PO DAILY Qty: 90 3RF Rx Instructions: Take in addition to the 100mg daily to equal 125mg metoprolol succinate 100 mg tablet extended release 24 hr 100 mg PO DAILY Qty: 90 3RF warfarin 1 mg tablet 1 mg PO DIRECTED Qty: 90 3RF Protocol: Dose Management Condition: Tuesday Dose/Route: 3 mg Instruction: 1 x 3 mg tablet Condition: Tuesday Dose/Route: 3 mg Instruction: 1 x 3 mg tablet Condition: Tuesday Dose/Route: 3 mg Instruction: 1 x 3 mg tablet Condition: Tuesday Dose/Route: 3 mg Instruction: 1 x 3 mg tablet Condition: Dose/Route: 3 mg Instruction: 1 x 3 mg tablet Condition: Tuesday Dose/Route: 3 mg Instruction: 1 x 3 mg tablet Condition: Tuesday Dose/Route: 3 mg Instruction: 1 x 3 mg tablet Protocol Text: Adjustment Start Date: Tuesday05/10/22 INR Value: 27.5 Seconds INR Date: 05/10/22 Recheck Date: 06/07/22 warfarin 3 mg tablet 3 mg PO DIRECTED Qty: 90 3RF Protocol: Dose Management Condition: Tuesday Dose/Route: 3 mg Instruction: 1 x 3 mg tablet Condition: Tuesday Dose/Route: 3 mg Instruction: 1 x 3 mg tablet Condition: Tuesday Dose/Route: 3 mg Instruction: 1 x 3 mg tablet Condition: Tuesday Dose/Route: 3 mg Instruction: 1 x 3 mg tablet Condition: Dose/Route: 3 mg Instruction: 1 x 3 mg tablet Condition: Tuesday Dose/Route: 3 mg Instruction: 1 x 3 mg tablet Condition: Tuesday Dose/Route: 3 mg Instruction: 1 x 3 mg tablet Protocol Text: Adjustment Start Date: Tuesday05/10/22 INR Value: 27.5 Seconds INR Date: 05/10/22 Recheck Date: 06/07/22 Rx Instructions: take as directed according to inr Vitamin D3 25 mcg (1,000 unit) Capsule 50 mcg PO DAILY Referrals: Michael Kumar DO [Primary Care Provider] - Coding Level of Care Code ED Stone Belt Sander for Chg Fwd Exam Comprehensive
--- NOTE | 2022-06-06 14:23 | ECG_ITS ---
Test Date: 2022-06-06 Pat Name: Madai Zepeda Department: Room: Gender: Female [employer]: : 1935 Requested By: Aryan Decker Order Number: [id number] Elisabet MD: Cristo Tirado M.D. Measurements Intervals [place] Rate: 103 P: [place]: QRS: -20 QRSD: 124 T: 96 QT: 396 QTc: 520 Interpretive Statements ATRIAL FIBRILLATION WITH RAPID VENTRICULAR RESPONSE MODERATE INTRAVENTRICULAR CONDUCTION DELAY [110+ ms QRS DURATION] MINIMAL VOLTAGE CRITERIA FOR LVH, CONSIDER NORMAL VARIANT [MEETS CRITERIA IN ONE OF: R(aVL), S(V1), R(V5), R(V5/V6)+S(V1)] ST DEVIATION AND MODERATE T-WAVE ABNORMALITY, CONSIDER LATERAL ISCHEMIA [-0.1+ mV T-WAVE IN I/aVL/V5/V6] Compared to ECG 09/08/2018 18:02:32 Intraventricular conduction delay now present T-wave abnormality now present Possible ischemia now present Sinus rhythm no longer present Electronically Signed On 06-06-2022 18:27:12 CDT by Cristo Tirado M.D. [email or web address]
[2022-06-06] MEDS: lactated ringers 1,000 ML 500 ML IV (14:42)
[2022-06-06 14:47] LABS: Basophils % 0.3 %; Eosinophils # 0.1 10^3/uL (0.0-0.8); Eosinophils % 0.9 %; Hematocrit 35.6 % (37.0-47.0); Hemoglobin 11.5 g/dL (11.5-15.3); Lymphocytes # 2.1 10^3/uL (0.8-4.8); Lymphocytes % 18.8 %; Mean Corpuscular HGB Conc 32.3 g/dL (30.0-36.0); Mean Corpuscular Hemoglobin 28.2 pg (28.0-34.0); Mean Corpuscular Volume 87.3 fl (81-99); Mean Platelet Volume 11.3 fL (7.4-10.4); Monocytes # 0.6 10^3/uL (0.2-0.9); Monocytes % 5.5 %; Neutrophils # 8.12 10^3/uL (1.8-7.7); Neutrophils % 73.9 %; Nucleated Red Blood Cells % 0 %; Platelet Count 246 10^3/cmm (130-400); Red Blood Count 4.08 10^6/uL (4.1-5.3); Red Cell Distribution Width 15.1 % (12.1-15.1)
[2022-06-06] MEDS: dilTIAZem 5 mg/mL SDV 5 mL 10 MG IVP ×2 (15:42→17:37)
[2022-06-06 16:43] LABS: Alanine Aminotransferase 15 U/L (0-33); Albumin Level 3.2 g/dL (3.5-5.2); Alkaline Phosphatase 85 U/L (35-105); Anion Gap 15.9 (5-19); Aspartate Amino Transferase 20 U/L (0-32); Blood Urea Nitrogen 29 mg/dL (8-23); Calcium 9.4 mg/dL (8.5-10.5); Carbon Dioxide 27 mmol/L (22-29); Chloride 98 mmol/L (98-107); Globulin 3.8 g/dL (1.3-4.6); Glucose 101 mg/dL (65-115); Magnesium 1.6 mg/dL (1.7-2.3); Osmolality Calculated 290 mOsm/kg (285-295); Potassium 3.9 mmol/L (3.5-5.1); Sodium 137 mmol/L (136-145); Total Bilirubin 0.5 mg/dL (0.15-1.2)
--- NOTE | 2022-06-06 16:55 | PC.NURSE ---
When standing, pt becomes nauseated and dizzy with a-fib rvr. Reported to Dr. Decker.
--- NOTE | 2022-06-06 17:05 | CTR_ITS ---
PROCEDURE INFORMATION: Exam: CT Head Without Contrast Exam date and time: 06/06/2022 5:23 PM Age: 87 years old Clinical indication: Dizziness TECHNIQUE: Imaging protocol: Computed tomography of the head without contrast. Radiation optimization: All CT scans at this facility use at least one of these dose optimization techniques: automated exposure control; mA and/or kV adjustment per patient size (includes targeted exams where dose is matched to clinical indication); or iterative reconstruction. COMPARISON: No relevant prior studies available. RADIATION DOSE METRICS: Total DLP (mGy-cm): 1295.99 FINDINGS: Brain: Moderate diffuse hypodense changes are noted in the bilateral periventricular and subcortical regions, likely related to chronic microvascular ischemic disease. A few punctate hypodense bilateral basal ganglia foci are likely tiny chronic lacunar infarcts. There is mild-moderate brain parenchymal atrophy. No acute intracranial hemorrhage, mass effect or midline shift. Cerebral ventricles: No pathologic ventricular dilatation. Paranasal sinuses: Near-total opacification of right maxillary sinus antrum with mixed high and low density material. This may represent fluid/proteinaceous content. Blood products may also be considered however no obvious acute regional fractures are identified. There is a small medial uncinate osseous defect with smooth margin which may be related to previous sinus surgery. There is minimal left sinus , ethmoid and sphenoid sinus mucosal thickening. Probable trace amount of fluid/debris in the left frontal sinus. Probable narrowing/obstruction of the bilateral OMC is due to mucosal thickening. Mastoid air cells: Visualized mastoid air cells are well aerated. Bones/joints: See Paranasal sinuses finding. Soft tissues: Unremarkable. CT/CT head wo con* [id number] IMPRESSION: 1. No acute intracranial findings. Other nonacute probably age-related intracranial findings as above. 2. Sinus findings as above. Clinical correlation for sinusitis should be obtained.
[2022-06-06] MEDS: dilTIAZem 60 mg Tablet PO (17:35)
--- NOTE | 2022-06-06 18:05 | P.HP_ITS ---
Providers/Chief Complaint Primary Care Provider: Michael Kumar DO Chief Complaint: LIGHT HEADED/ FALL LAST WEEK History of Present Illness Madai Zepeda is a 87 year old female with past medical history of atrial fibrillation, chronic anticoagulation with Coumadin, CKD with baseline creatinine of 1.2, recent COVID 1 week ago who presented to the ER because of persistent dizziness which caused her to fall 1 week ago leading to lumbar fracture. Present to the ER today because of persistent dizziness on standing up. Reports extreme runny nose. Denies any nausea vomiting, headache, palpitations. Dizziness gets worse on moving head from 1 side to another. States has had similar complaints in the past for which she received physical therapy. Also complains of difficulty urination or maintaining urinary stream for many months. Denies any diarrhea. Denies any changes in her medications. Currently takes Coumadin 3 mg daily. Review of Systems General: Reports: 10 or more systems reviewed and unremarkable except in HPI and below Const: Denies: fever(s), chills, body aches, change in appetite, change in we ight, malaise, night sweats, diaphoresis, change in sleep pattern, daytime sleepiness or snoring Eyes: Denies: change in vision, blurry vision, photophobia, eye discomfort or eye discharge ENMT: Denies: throat pain, enlarged tonsils, hoarseness, mouth pain, oral sores, dry mouth, tinnitus, nasal congestion or post nasal drip Card: Denies: chest pain, palpitations, irregular heart rhythm, edema, swelling of feet/ankles, lightheadedness, syncope, pre-syncope, dyspnea on exertion, orthopnea, leg pain with exertion or acrocyanosis Resp: Denies: dyspnea, productive cough, non-productive cough, wheezing, stridor, pain on inspiration, change in phlegm color, hemoptysis or chest congestion GI: Denies: abdominal pain, nausea, vomiting, hematemesis, coffee ground emesis, dysphagia, heartburn, diarrhea, constipation, bloating, GI cramping, change in bowel habits, pain on defecation, hematochezia or melena : Denies: flank pain, dysuria, urinary frequency, urinary urgency, urinary hesitancy, nocturia or hematuria Musc: Denies: neck pain, back pain, extremity pain, joint pain, joint sw elling, joint redness, joint stiffness or limited range of motion Neuro: Denies: headache(s), numbness in extremities, weakness in extremities, sensory changes, lack of coordination, difficulty walking, frequent falls, dizziness, vertigo, confusion, Slurred speech present, difficulty communicating thoughts or seizure-like activity Psych: Denies: anxiety, depression, mood swings, panic attacks, hopelessness or irritability Endo: Denies: polyuria, polydipsia, tired all the time, cold intolerance, excessive sweating, flushing or heat intolerance Jameel/Lymph: Denies: easy bruising or easy bleeding All/Imm: Denies: tongue swelling, facial swelling or acute wheezing Medications/Allergies Home Medications Medication Instructions Recorded Confirmed Last Taken Type cholecalciferol (vitamin D3) 25 50 mcg PO DAILY 06/23/20 06/06/22 06/05/22 History mcg (1,000 unit) capsule (Vitamin D3) atorvastatin 20 mg tablet 20 mg PO DAILY #90 tabs 10/13/21 06/06/22 06/05/22 Rx diltiazem HCl 240 mg 240 mg PO DAILY #90 caps 10/13/21 06/06/22 06/05/22 Rx capsule,extended release 24 hr lisinopril 20 1 tab PO DAILY #90 tabs 10/13/21 06/06/22 06/05/22 Rx mg-hydrochlorothiazide 25 mg tablet metoprolol succinate 100 mg 100 mg PO DAILY #90 tabs 10/13/21 06/06/22 06/05/22 Rx tablet,extended release 24 hr metoprolol succinate 25 mg 25 mg PO DAILY #90 tabs 10/13/21 06/06/22 06/05/22 Rx tablet,extended release 24 hr warfarin 1 mg tablet 1 mg PO DIRECTED #90 tabs 10/13/21 06/06/22 06/05/22 Rx warfarin 3 mg tablet 3 mg PO DIRECTED #90 tabs 04/01/22 06/06/22 06/05/22 Rx denosumab 60 mg/mL subcutaneous 60 mg SUBCUT Q180D 06/06/22 06/06/22 Unknown History syringe (Prolia) furosemide 20 mg tablet (Lasix) 20 mg PO .THREE TIMES WEEKLY 06/06/22 06/06/22 Unknown History tramadol 50 mg tablet 50 mg PO TID PRN Pain 0906/06/22 06/05/22 History Allergies Allergy/AdvReac Type Severity Reaction Status Date / Time levofloxacin Allergy Unknown Unknown Verified 08/12/21 10:43 sulfamethoxazole Allergy Unknown Unknown Verified 08/12/21 10:43 [From Bactrim] trimethoprim [From Bactrim] Allergy Unknown Unknown Verified 08/12/21 10:43 Penicillins Allergy Unknown Verified 08/12/21 10:43 PFSH Acute PFSH: Medical History (Updated 06/06/22 @ 18:08 by Amadeo Edwards MD) Atrial fibrillation CKD (chronic kidney disease) stage 3, GFR 30-59 ml/min Heart disease High risk medication use Hypercholesteremia Infectious hepatitis 1968 Lumbar vertebral fracture Melena Osteoporosis Surgical History History of resection of large bowel S/P appendectomy S/P cataract extraction S/P colonoscopy with polypectomy Family History Father Cancer Myocardial infarction CAD (coronary artery disease) Brother Cancer Myocardial infarction Stroke CAD (coronary artery disease) Sister Cancer Myocardial infarction Stroke Hypertension CAD (coronary artery disease) Mother Myocardial infarction CAD (coronary artery disease) Daughter Stroke Other Anesthesia complication Family history of premature coronary artery disease Hyperlipidemia Rheumatoid arthritis Denies family history of Lupus Social History (Updated 06/06/22 @ 18:08 by Amadeo Edwards MD) Smoking and tobacco status: former smoker Alcohol intake: never Substance/Drug Use: never Caregiver/support person: Yes Household members: family Housing: House History of recent travel: No Vitals/I&O/Wt Last Vital Signs Temp 97.9 F 06/06/22 14:03 Pulse 88 06/06/22 17:43 Resp 18 06/06/22 17:43 BP 140/56 06/06/22 17:43 Pulse Ox 97 06/06/22 17:43 O2 Del Method 06/06/22 17:43 06/06/22 06/06/22 06/06/22 06:59 14:59 22:59 Intake Total 1000 / 1000 Balance 1000 / 1000 Weight last 48 hrs Weight 83.915 kg Physical Exam Narrative: General: No acute distress, AO x3 HEENT: PERRLA, pupils bilaterally equal and reactive Chest: Normal vesicular breath sounds, no added sounds, equal good air entry bilaterally CVS: S1-S2 regular, no murmurs, no tachycardia, no gallops, no rubs Abdomen: Soft, nontender, no organomegaly, bowel sounds present Neuro: No focal deficits, no facial deformity, AO x3, power 5/5 in all limbs Data : 06/07/22 03:34 06/07/22 03:34 A&P Assessment and plan (1) Dizziness on standing: Most likely secondary to sinusitis as seen on CT head. Less likely stroke. Cannot rule out BPPV. Blood pressure is normal though patient has not taken her morning meds today. Check orthostatics. Meclizine as needed. Status: Acute (2) COVID-19: Mild disease. Tested positive around a week ago. No role for Paxlovid of it for now. Status: Acute (3) Right maxillary sinusitis: As seen on CT scan. Flonase twice daily, Claritin daily. Less likely bacterial. For now we will start on IV ceftriaxone. Most likely can discharge on oral Levaquin for 7 days. Status: Acute (4) CKD (chronic kidney disease) stage 3, GFR 30-59 ml/min: Creatinine at baseline. Status: Acute (5) Atrial fibrillation: Having occasional episodes of RVR. Takes Cardizem 240 mg oral daily, metoprolol succinate 125 mg oral daily. For now switch to Cardizem 90 mg every 6 hourly. Continue home dose metoprolol. Continue home dose of warfarin 3 mg oral daily. Check INR. Status: Acute Plan Admit to [facility] with telemetry. Full code. Coumadin will suffice as DVT prophylaxis Famotidine for PUD prophylaxis Attestations Medical Necessity Statement*: Admission for more than 2 midnights for management of atrial fibrillation, dizziness, COVID-19, right maxillary sinusit is Time Spent in Patient Care: Greater than 35 minutes Coding Level of Care Code Acute Lead Manufacturing Technician for [facility] Diagnoses Dizziness on standing R42 COVID-19 U07.1 Right maxillary sinusitis J32.0 CKD (chronic kidney disease) stage 3, GFR 30-59 ml/min N18.3 Atrial fibrillation I48.91
[2022-06-06 18:10] LABS: C Reactive Protein 39.8 mg/L (0.0-4.9); Thyroid Stimulating Hormone 2.09 uIU/mL (0.27-4.20)
[2022-06-06 18:15] LABS: INR 3.34 (0.8-1.2)
[2022-06-06 18:16] LABS: Partial Thromboplastin Time 60.9 SECONDS (23.9-36.7)
[2022-06-06] MEDS: cefTRIAXone 1,000 MG in sodium chloride 0.9% (plus) 50 ML 100 MG IV (19:47)
[2022-06-06 20:07] LABS: NT Pro B Type Natriuretic Pept 5222 pg/mL (0-450); Procalcitonin 0.04 ng/mL (0-0.5); Vitamin B12 345 pg/mL (232-1245)
[2022-06-06] MEDS: docusate sodium 100 mg Capsule PO (22:13)
[2022-06-06] MEDS: loratadine 10 mg Tablet PO (22:14)
[2022-06-06] MEDS: fluticasone nasal spray 16gm Btl 1 SPRAY NASAL (22:14)
[2022-06-06] MEDS: ferrous gluconate 324 mg Tablet PO (22:14)
[2022-06-06] MEDS: famotidine 20 mg Tablet PO (22:14)
[2022-06-06] MEDS: warfarin 3 mg Tablet PO (22:44)
--- NOTE | 2022-06-06 22:56 | PC.NURSE ---
Patient states she has not voided since this morning, states this has been a problem for her for a few weeks. Bladder scan indicates > 850ml of urin in bladder. Dr. Marshall notified, orders for pope catheter placed.
[2022-06-06] MEDS: dilTIAZem 60 mg Tablet 90 MG PO (23:11)
[2022-06-06 23:25] LABS: Add Urine Microscopic? NO; Charge for UA Resulting for Rev
[2022-06-06 23:40] LABS: Bilirubin Urine Neg (Negative); Blood Urine Neg (Negative); Glucose Urine UA Norm (Normal); Ketones Urine Negative (Negative); Leukocyte Esterase Urine Negative (Negative); Nitrate Urine Negative (Negative); Protein Urine Neg (Negative); Urine Appearance Clear (CLEAR); Urine Color Yellow (Yellow); Urobilinogen Urine Neg (Negative); pH Urine 6.5 (5-7)
[2022-06-06 23:44] LABS: Amphetamines Screen Urine Negative (Negative); Barbiturates Screen Urine Negative (Negative); Benzodiazepines Screen Urine Negative (Negative); Cocaine Screen Urine Negative (Negative); Opiate Screen Urine Negative (Negative); PCP Screen Urine Negative (Negative); THC Screen Urine Negative (Negative)
[2022-06-07] VITALS (10 sets, daily range): BP systolic 112–156; BP diastolic 54–79; PULSE 67–130; RESP 13–30; TEMP 36.7; O2SAT 94–100
[2022-06-07 00:42] LABS: Iron 30 ug/dL (37-145); Percent Saturation 16.8 % (20-50); Total Iron Binding Capacity 178 mcg/dl; Unsaturated Iron Binding 148 ug/dL (112-347)
[2022-06-07] MEDS: acetaminophen 325 mg Tablet 650 MG PO (03:37)
[2022-06-07 04:00] LABS: Basophils % 0.3 %; Eosinophils # 0.2 10^3/uL (0.0-0.8); Eosinophils % 1.8 %; Hematocrit 34.2 % (37.0-47.0); Hemoglobin 10.9 g/dL (11.5-15.3); Lymphocytes # 3.1 10^3/uL (0.8-4.8); Lymphocytes % 25.2 %; Mean Corpuscular HGB Conc 31.9 g/dL (30.0-36.0); Mean Corpuscular Hemoglobin 28.2 pg (28.0-34.0); Mean Corpuscular Volume 88.6 fl (81-99); Mean Platelet Volume 11.6 fL (7.4-10.4); Monocytes # 0.8 10^3/uL (0.2-0.9); Monocytes % 6.5 %; Neutrophils # 8.11 10^3/uL (1.8-7.7); Neutrophils % 65.6 %; Nucleated Red Blood Cells % 0 %; Platelet Count 259 10^3/cmm (130-400); Red Blood Count 3.86 10^6/uL (4.1-5.3); White Blood Count 12.4 10^3/uL (4.0-10.0)
[2022-06-07 04:23] LABS: Alanine Aminotransferase 17 U/L (0-33); Albumin Level 3.4 g/dL (3.5-5.2); Alkaline Phosphatase 90 U/L (35-105); Anion Gap 13.7 (5-19); Aspartate Amino Transferase 22 U/L (0-32); Blood Urea Nitrogen 25 mg/dL (8-23); Calcium 9.2 mg/dL (8.5-10.5); Carbon Dioxide 30 mmol/L (22-29); Chloride 97 mmol/L (98-107); Chol HDL Ratio 4.29 mg/dL (0.0-4.40); Cholesterol 150 mg/dL (0-200); Globulin 3.7 g/dL (1.3-4.6); Glucose 105 mg/dL (65-115); HDL Cholesterol 35 mg/dL (60-100); LDL Cholesterol Calculated 82 mg/dL (50-129); Magnesium 1.6 mg/dL (1.7-2.3); Osmolality Calculated 289 mOsm/kg (285-295); Phosphorus 2.8 mg/dL (2.5-4.5); Potassium 3.7 mmol/L (3.5-5.1); Sodium 137 mmol/L (136-145); Total Bilirubin 0.5 mg/dL (0.15-1.2); Total Protein 7.1 g/dL (6.6-8.7); Triglycerides 165 mg/dL (0-150); VLDL Cholestrol Calculation 33 mg/dL (0-30)
[2022-06-07 04:29] LABS: Estmated Average Glucose 126
[2022-06-07] MEDS: dilTIAZem 60 mg Tablet 90 MG PO (05:19)
[2022-06-07] MEDS: ferrous gluconate 324 mg Tablet PO (08:55)
[2022-06-07] MEDS: docusate sodium 100 mg Capsule PO (08:55)
[2022-06-07] MEDS: atorvastatin 40 mg Tablet 20 MG PO (08:56)
[2022-06-07] MEDS: famotidine 20 mg Tablet PO (08:57)
[2022-06-07] MEDS: loratadine 10 mg Tablet PO (08:57)
[2022-06-07] MEDS: fluticasone nasal spray 16gm Btl 1 SPRAY NASAL (08:57)
[2022-06-07] MEDS: metoprolol succinate ER (24 HR) 100 mg Tablet PO (08:59)
--- NOTE | 2022-06-07 09:02 | PC.NURSE ---
125 mg metoprolol clarified with Dr. Edwards v.o. given to administered 75 mg
--- NOTE | 2022-06-07 09:53 | PM.DCS ---
Discharge Providers Date of Admission: 06/06/22 17:36 Date of Discharge: June 07, 2022 Attending Provider at Admission: Amadeo Edwards MD Attending Provider at Discharge: Amadeo Edwards MD Primary Care Provider: Michael Kumar DO Diagnoses at Discharge Discharge Diagnosis (1) Dizziness on standing: Status: Acute (2) COVID-19: Status: Acute (3) Right maxillary sinusitis: Status: Acute (4) CKD (chronic kidney disease) stage 3, GFR 30-59 ml/min: Status: Acute (5) Atrial fibrillation: Status: Acute Reason for Visit Reason for Visit: LIGHT HEADED/ FALL LAST WEEK Hospital Course Hospital Course Madai Zepeda is a 87 year old female with past medical history of atrial fibrillation, chronic anticoagulation with Coumadin, CKD with baseline creatinine of 1.2, recent COVID 1 week ago who presented to the ER because of persistent dizziness which caused her to fall 1 week ago leading to lumbar fracture. Present to the ER today because of persistent dizziness on standing up. Reports extreme runny nose. Denies any nausea vomiting, headache, palpitations. Dizziness gets worse on moving head from 1 side to another. States has had similar complaints in the past for which she received physical therapy. Also complains of difficulty urination or maintaining urinary stream for many months. Denies any diarrhea. Denies any changes in her medications. Currently takes Coumadin 3 mg daily. Patient underwent CT scan of the head on admission which is consistent with right maxillary opacification secondary to sinusitis. It is believed her dizziness is most likely from the sinusitis as well. She was started on meclizine, Claritin and Flonase. During hospitalization her heart rate remained stable. To relieve the symptoms of urinary hesitation UTI was ruled out and Joseph catheter was placed. On placing a Joseph catheter patient evacuated around 500 cc of urine. Next day her creatinine came down to 1. It is believed patient's renal dysfunction is most likely from urinary obstruction from possible urinary prolapse. She has been discharged hemodynamically stable condition on Claritin and Flonase for next 2 weeks along with meclizine as needed. Home health is being arranged for. She is to take Levaquin for next 7 days. She is to follow-up with ENT physician in 2 weeks. She is to follow-up with gynecology for possible urinary prolapse. Physical Exam Narrative: General: No acute distress, AO x3 HEENT: PERRLA, pupils bilaterally equal and reactive Chest: Normal vesicular breath sounds, no added sounds, equal good air entry bilaterally CVS: S1-S2 regular, no murmurs, no tachycardia, no gallops, no rubs Abdomen: Soft, nontender, no organomegaly, bowel sounds present Neuro: No focal deficits, no facial deformity, AO x3, power 5/5 in all limbs Urinary Catheter Management: Joseph: Cath Placed During This Visit: yes Reason for Continuing Indwelling Catheter: Acute Urinary Retention or Obstruction Urinary Catheter Date of Insertion: 06/06/22 Urinary Catheter Time of Insertion: 23:00 Discharge Data Studies Completed and Pending Completed Studies During Hospitalization Category Date Time Status CT head wo con* [id number] Stat Cat Scan 06/06/22 17:05 Completed XR chest 1V portable [id number] Stat Exams 06/06/22 14:05 Completed Pending at discharge Category Date Time Status Blood Culture Stat Lab 06/06/22 19:12 Results CV. echo complete* [id number] Routine Ultrasound 06/07/22 18:05 Taken Radiology Impressions Chest X-Ray 06/06/22 14:05 IMPRESSION: No obvious acute consolidation. Suboptimal lung base assessment. Followup including lateral view may be obtained if clinically indicated. Head CT 06/06/22 17:05 IMPRESSION: 1. No acute intracranial findings. Other nonacute probably age-related intracranial findings as above. 2. Sinus findings as above. Clinical correlation for sinusitis should be obtained. Laboratory Results WBC 12.4 10^3/uL (4.0-10.0) H 06/07/22 03:34 RBC 3.86 10^6/uL (4.1-5.3) L 06/07/22 03:34 Hgb 10.9 g/dL (11.5-15.3) L 06/07/22 03:34 Hct 34.2 % (37.0-47.0) L 06/07/22 03:34 MCV 88.6 fl (81-99) 06/07/22 03:34 MCH 28.2 pg (28.0-34.0) 06/07/22 03:34 MCHC 31.9 g/dL (30.0-36.0) 06/07/22 03:34 RDW 15.0 % (12.1-15.1) 06/07/22 03:34 Plt Count 259 10^3/cmm (130-400) 06/07/22 03:34 MPV 11.6 fL (7.4-10.4) H 06/07/22 03:34 Neut % (Auto) 65.6 % 06/07/22 03:34 Lymph % (Auto) 25.2 % 06/07/22 03:34 [place] % (Auto) 6.5 % 06/07/22 03:34 Eos % (Auto) 1.8 % 06/07/22 03:34 Baso % (Auto) 0.3 % 06/07/22 03:34 Neut # (Auto) 8.11 10^3/uL (1.8-7.7) H 06/07/22 03:34 Lymph # (Auto) 3.1 10^3/uL (0.8-4.8) 06/07/22 03:34 [place] # (Auto) 0.8 10^3/uL (0.2-0.9) 06/07/22 03:34 Eos # (Auto) 0.2 10^3/uL (0.0-0.8) 06/07/22 03:34 Baso # (Auto) 0.0 10^3/uL (0.0-0.1) 06/07/22 03:34 Nucleated RBC % (auto) 0 % 06/07/22 03:34 Nucleated RBCs # 0.0 /100WBC 06/07/22 03:34 PT 34.20 SECONDS (12.1-14.9) H 06/06/22 17:52 INR 3.34 (0.8-1.2) H 06/06/22 17:52 APTT 60.9 SECONDS (23.9-36.7) H 06/06/22 17:52 D-Dimer 1.50 ug/mIFEU (0-0.59) H 06/06/22 17:52 Sodium 137 mmol/L (136-145) 06/07/22 03:34 Potassium 3.7 mmol/L (3.5-5.1) 06/07/22 03:34 Chloride 97 mmol/L (98-107) L 06/07/22 03:34 Carbon Dioxide 30 mmol/L (22-29) H 06/07/22 03:34 Anion Gap 13.7 (5-19) 06/07/22 03:34 BUN 25 mg/dL (8-23) H 06/07/22 03:34 Creatinine 1.0 mg/dL (0.5-0.9) H 06/07/22 03:34 GFR Calculation Not Reportable 06/07/22 03:34 Glucose 105 mg/dL (65-115) 06/07/22 03:34 Estimat Average Glucose 126 06/07/22 03:34 Hemoglobin A1c 6.0 % (4.0-6.0) 06/07/22 03:34 Calculated Osmolality 289 mOsm/kg (285-295) 06/07/22 03:34 Calcium 9.2 mg/dL (8.5-10.5) 06/07/22 03:34 Phosphorus 2.8 mg/dL (2.5-4.5) 06/07/22 03:34 Magnesium 1.6 mg/dL (1.7-2.3) L 06/07/22 03:34 Iron 30 ug/dL (37-145) L 06/06/22 19:12 TIBC 178 mcg/dl 06/06/22 19:12 % Saturation 16.8 % (20-50) L 06/06/22 19:12 Unsat Iron Binding 148 ug/dL (112-347) 06/06/22 19:12 Total Bilirubin 0.5 mg/dL (0.15-1.2) 06/07/22 03:34 AST 22 U/L (0-32) 06/07/22 03:34 ALT 17 U/L (0-33) 06/07/22 03:34 Alkaline Phosphatase 90 U/L (35-105) 06/07/22 03:34 C-Reactive Protein 39.8 mg/L (0.0-4.9) H 06/06/22 16:16 NT-Pro-B Natriuret Pep 5222 pg/mL (0-450) H 06/06/22 19:12 Total Protein 7.1 g/dL (6.6-8.7) 06/07/22 03:34 Albumin 3.4 g/dL (3.5-5.2) L 06/07/22 03:34 Globulin 3.7 g/dL (1.3-4.6) 06/07/22 03:34 Triglycerides 165 mg/dL (0-150) H 06/07/22 03:34 Cholesterol 150 mg/dL (0-200) 06/07/22 03:34 LDL Cholesterol, Calc 82 mg/dL (50-129) 06/07/22 03:34 Total VLDL Cholesterol 33 mg/dL (0-30) H 06/07/22 03:34 HDL Cholesterol 35 mg/dL (60-100) L 06/07/22 03:34 Cholesterol/HDL Ratio 4.29 mg/dL (0.0-4.40) 06/07/22 03:34 Vitamin B12 345 pg/mL (232-1245) 06/06/22 19:12 Folate 18.0 ng/mL (4.8-37.3) 06/06/22 19:12 Procalcitonin 0.04 ng/mL (0-0.5) 06/06/22 19:12 TSH 2.09 uIU/mL (0.27-4.20) 06/06/22 16:16 Urine Color Yellow (Yellow) 06/06/22 23:00 Urine Appearance Clear (CLEAR) 06/06/22 23:00 Urine pH 6.5 (5-7) 06/06/22 23:00 Ur Specific Una 1.010 (1.005-1.030) 06/06/22 23:00 Urine Protein Neg (Negative) 06/06/22 23:00 Urine Glucose (UA) Norm (Normal) 06/06/22 23:00 Urine Ketones Negative (Negative) 06/06/22 23:00 Urine Blood Neg (Negative) 06/06/22 23:00 Urine Nitrate Negative (Negative) 06/06/22 23:00 Urine Bilirubin Neg (Negative) 06/06/22 23:00 Urine Urobilinogen Neg mg/dL (Negative) 06/06/22 23:00 Ur Leukocyte Esterase Negative (Negative) 06/06/22 23:00 Urine Opiates Screen Negative ng/mL (Negative) 06/06/22 23:00 Ur Barbiturates Screen Negative ng/mL (Negative) 06/06/22 23:00 Ur Phencyclidine Scrn Negative ng/mL (Negative) 06/06/22 23:00 Ur Amphetamines Screen Negative ng/mL (Negative) 06/06/22 23:00 U Benzodiazepines Scrn Negative ng/mL (Negative) 06/06/22 23:00 Urine Cocaine Screen Negative ng/mL (Negative) 06/06/22 23:00 U Marijuana (THC) Screen Negative ng/mL (Negative) 06/06/22 23:00 Vitals Last Vital Signs Temp 98.1 F 06/07/22 04:00 Pulse 92 06/07/22 05:47 Resp 19 H 06/07/22 04:00 BP 156/57 06/07/22 04:00 Pulse Ox 96 06/07/22 04:00 O2 Del Method 06/06/22 23:26 Discharge Plan Discharge Patient Disposition: Home Health Service Condition: Stable Prescriptions: New Spiriva with HandiHaler 18 mcg Capsule, W/Inhalation Device 18 mcg inhalation DAILY.RESPIRATORY Qty: 30 0RF fluticasone propionate 50 mcg/actuation [place],Suspension 1 spray nasal BID Qty: 50 0RF loratadine 10 mg Tablet 10 mg PO DAILY Qty: 14 0RF doxycycline hyclate 100 mg tablet,delayed release (DR/EC) 100 mg PO Q12H 7 Days Qty: 14 0RF fluticasone propion-salmeterol [Advair Diskus] 250-50 mcg/dose blister with device 1 inh inhalation BID Qty: 60 0RF meclizine 25 mg Tablet 25 mg PO TID PRN (Reason: Dizziness) Qty: 14 0RF diltiazem HCl [Cardizem LA] 360 mg tablet extended release 24 hr 360 mg PO DAILY Qty: 30 0RF lisinopril 10 mg tablet 10 mg PO DAILY Qty: 30 0RF Continued atorvastatin 20 mg tablet 20 mg PO DAILY Qty: 90 3RF metoprolol succinate 25 mg tablet extended release 24 hr 25 mg PO DAILY Qty: 90 3RF Rx Instructions: Take in addition to the 100mg daily to equal 125mg metoprolol succinate 100 mg tablet extended release 24 hr 100 mg PO DAILY Qty: 90 3RF warfarin 1 mg tablet 1 mg PO DIRECTED Qty: 90 3RF Protocol: Dose Management Condition: Tuesday Dose/Route: 3 mg Instruction: 1 x 3 mg tablet Condition: Tuesday Dose/Route: 3 mg Instruction: 1 x 3 mg tablet Condition: Tuesday Dose/Route: 3 mg Instruction: 1 x 3 mg tablet Condition: Tuesday Dose/Route: 3 mg Instruction: 1 x 3 mg tablet Condition: Dose/Route: 3 mg Instruction: 1 x 3 mg tablet Condition: Tuesday Dose/Route: 3 mg Instruction: 1 x 3 mg tablet Condition: Tuesday Dose/Route: 3 mg Instruction: 1 x 3 mg tablet Protocol Text: Adjustment Start Date: Tuesday05/10/22 INR Value: 27.5 Seconds INR Date: 05/10/22 Recheck Date: 06/07/22 warfarin 3 mg tablet 3 mg PO DIRECTED Qty: 90 3RF Protocol: Dose Management Condition: Tuesday Dose/Route: 3 mg Instruction: 1 x 3 mg tablet Condition: Tuesday Dose/Route: 3 mg Instruction: 1 x 3 mg tablet Condition: Tuesday Dose/Route: 3 mg Instruction: 1 x 3 mg tablet Condition: Tuesday Dose/Route: 3 mg Instruction: 1 x 3 mg tablet Condition: Dose/Route: 3 mg Instruction: 1 x 3 mg tablet Condition: Tuesday Dose/Route: 3 mg Instruction: 1 x 3 mg tablet Condition: Tuesday Dose/Route: 3 mg Instruction: 1 x 3 mg tablet Protocol Text: Adjustment Start Date: Tuesday05/10/22 INR Value: 27.5 Seconds INR Date: 05/10/22 Recheck Date: 06/07/22 Rx Instructions: take as directed according to inr cholecalciferol (vitamin D3) [Vitamin D3] 25 mcg (1,000 unit) Capsule 50 mcg PO DAILY tramadol 50 mg Tablet 50 mg PO TID PRN (Reason: Pain) Lasix 20 mg tablet 20 mg PO .THREE TIMES WEEKLY Prolia 60 mg/mL Syringe 60 mg SUBCUT Q180D Discontinued diltiazem HCl 240 mg capsule,extended release 24hr 240 mg PO DAILY Qty: 90 3RF lisinopril-hydrochlorothiazide 20-25 mg tablet 1 tab PO DAILY Qty: 90 3RF Discharge Orders: Discharge Order (Routine); Ordered 06/07/22 Ordered By: Amadeo Edwards Referrals: Michael Kumar DO [Primary Care Provider] - 2 weeks Elan Rodriguez MD [Physician] - 2 weeks Discharge Diet: Cardiac Discharge Activity: Resume usual activity and Increase activity as tolerated Patient Instructions: Opioid Safety Activity Restrictions/Additional Instructions: Your dose of Cardizem has been increased to 360 mg oral daily. Do not take lisinopril hydrochlorothiazide combination anymore. Check your blood pressure daily at home and maintain a blood pressure diary. If your blood pressures go over 140 systolics you can take lisinopril 10 mg. For now do not take lisinopril until your blood pressures are higher than 140 mmHg. Take Claritin 10 mg oral daily for next 2 weeks along with Flonase nasal spray twice daily for next 2 weeks. Follow-up with ENT physician in 2 weeks for further evaluation of sinusitis. Take doxycycline antibiotic for next 7 days. For now take Coumadin as 2 mg and 3 mg on every alternate day. That is for now take 3 mg on Tuesday, Tuesday, Tuesday, Tuesday while take 2 mg on Tuesday, , Tuesday. Please recheck your INR in 10 days to 2 weeks. Please follow-up with a casing finisher and stuffer within next 2 weeks for further evaluation of possible uterine prolapse. Discharge Attestations Time Spent in Discharge Care*: greater than 30 min Specific Discharge Activities: educating patient, educating and/or supporting family/caregiver, discussing with mattress spring encaser/social workers/dc planners, documenting/other paperwork and evaluating patient/reviewing data Status at Discharge: Cognitive status at discharge: cognitively intact, Behavioral status at discharge: cooperative, Functional status at discharge: independent ambulation, Overall status at discharge: patient is back to baseline Quality Metrics Clinical Quality Measures [ No reported AMI, CVA or VTE this stay] Coding Level of Care Code Acute Chg DC note History Comprehensive Exam Comprehensive Medical Decision Making High Complexity Diagnoses Dizziness on standing R42 COVID-19 U07.1 Right maxillary sinusitis J32.0 CKD (chronic kidney disease) stage 3, GFR 30-59 ml/min N18.3 Atrial fibrillation I48.91
--- NOTE | 2022-06-07 09:54 | PC.NURSE ---
Dr. Edwards at bedside, HCP to D/C patient today
--- NOTE | 2022-06-07 10:35 | PC.CHAP ---
Pastoral Care Encounter/Spiritual Assessment Type of Contact [] Declined information tech visit [] Patient/Family/Request visit [] Outpatient visit [] Follow-up visit [] Physician referral [] Code/Alert [x] Routine visit [] Staff referral [] Actively dying [x] Patient sleeping [x] Family support [] [] Out of room [] Palliative care [] [] Receiving care in room [] Pre-surgical visit [] Trauma [] Long length of stay [x] ICU visit [] Other: Relational/Emotional Strength [] Patient feels connected with others/family/visitors/staff [] Distress [] Loneliness/isolation [] Abandonment Spirituality of Patient [] Person of Jennifer [] Attends Orthodoxy of their Jennifer [] Believes in Prayer [] Reads Bible or Tenriism materials [] There are Spiritual issues to be addressed Tie In Hand Interventions [x] Prayer [] Active listening [] Non-anxious presence [] Spiritual/emotional support [] Crisis/trauma care [] Spiritual counseling [] Bereavement support [] Provided bereavement packet [] Provided Bible/devotional materials [] Provided toy/stuffed animal, coloring book to patient or family member [] Provided Communion [] Anointing/Umbarger [] Salvation [x] Completed spiritual assessment [] Other: Impact on Illness or Injury [] Angry [] Fearful [] Anxious [] Often cries [] Exhaustion [] Unable to work [] Unable to attend mandaeism [] Unable to walk/stand [] Unable to read [] Unable to drive [] Unable to eat/drink [] Unable to sleep [] Unable to be with family [] Patient intubated [] Other: Summary Time spent with patient
--- NOTE | 2022-06-07 12:21 | PC.NURSE ---
All D/C instructions educated to patient and family at bedside, patient expressed concerns about being d/c, This nurse had Dr. Edwards come to bedside to observe concerns. Dr. Edwards explained nothing further can be done medically inpatient, the dizziness will go away with time. patient signed d/c papers. all questions answered and patient educated on safe transferring. patient out of facility at this time transported home by sister
--- NOTE | 2022-06-07 18:05 | USCV_ITS ---
Madai Zepeda Age: 87 Gender: F : 1935 Exam Date: 06/07/2022 08:46 Ordering Phys: Amadeo Edwards MD Technologist: Ovidio Bower Exam Location: [facility] Indication: Atrial fibrillation, dizziness BP: 112 / 54 HR: 71 Rhythm: Sinus Technical Quality: Adequate MEASUREMENTS (Male / Female) Normal Values 2D ECHO LV Diastolic Diameter PLAX 3.6 cm 4.2 - 5.9 / 3.9 - 5.3 cm LV Systolic Diameter PLAX 2.8 cm IVS Diastolic Thickness 1.6 cm 0.6 - 1.0 / 0.6 - 0.9 cm IVS Systolic Thickness 1.4 cm LVPW Diastolic Thickness 1.1 cm 0.6 - 1.0 / 0.6 - 0.9 cm LVPW Systolic Thickness 1.4 cm LVOT Diameter 2.1 cm LV Ejection Fraction 2D Teich 46.2 % LV Ejection Fraction MOD 2C 74.4 % LV Ejection Fraction 2C AL 74.6 % LA Diameter 3.7 cm IVC Diameter 1.2 cm M-MODE Aortic Annulus Diameter 3.5 cm LA Ao Ratio MM 1.1 MV E Point Septal Separation 1.1 cm DOPPLER AV Peak Velocity 108.0 cm/s LVOT Peak Velocity 68.0 cm/s AV Area Cont Eq vti 2.7 cm squared AV Area Cont Eq pk 2.2 cm squared MV Area PHT 5.0 cm squared Mitral E to A Ratio 3.0 MV E' Velocity 111.0 cm/s TR Peak Velocity 310.0 cm/s TR Peak Gradient 38.4 mmHg TV Peak E Velocity 95.0 cm/s Right Atrial Pressure 3.0 mmHg Pulmonary Artery Systolic Pressu 41.4 mmHg RV Acceleration Time 0.1 s FINDINGS Left Ventricle Normal left ventricular size, systolic function and mildly increased wall thickness, with no regional wall motion abnormalities. Left ventricular ejection fraction is estimated at 60 %. Right Ventricle Normal right ventricular size and systolic function. Right ventricular systolic pressure 47 mmHg. Right Atrium Right atrium not well visualized. Left Atrium Mildly increased left atrial size. Mitral Valve Mild mitral annular calcification. Trace mitral valve regurgitation. Aortic Valve Aortic valve not well visualized. No aortic valve stenosis. Trace aortic valve regurgitation. Tricuspid Valve Structurally normal tricuspid valve. Mild tricuspid valve regurgitation. Pulmonic Valve Pulmonic valve not well visualized. Pericardium No pericardial effusion. Aorta Aorta not well visualized. IVC Normal inferior vena cava. CONCLUSIONS 1. Normal left ventricular size, systolic function and mildly increased wall thickness, with no regional wall motion abnormalities. Left ventricular ejection fraction is estimated at 60 %. 2. Normal right ventricular size and systolic function. 3. Mild tricuspid valve regurgitation. 4. Moderate pulmonary hypertension with pulmonary artery pressure estimated at 47 mmHg. 5. When compared to previous echocardiogram dated 11/24/2017, there may not have been any significant change. Spring Wood MD (Electronically Signed) Final Date: 07 June 2022 13:38 S
== END 2022-06-07 12:25 | disposition home health service (06) | DRG 152 ==
LOC: ER 18:10 → ICU 20:04
PROVIDERS: Admitting Provider Student in an Organized Health Care Education/Training Program; Emergency Provider Student in an Organized Health Care Education/Training Program; PCP Electrodiagnostic Medicine; Visit Provider Student in an Organized Health Care Education/Training Program
DX: J01.00 Acute maxillary sinusitis, unspecified (principal); U07.1 COVID-19; R42 Dizziness and giddiness; I48.91 Unspecified atrial fibrillation; Z79.01 Long term (current) use of anticoagulants; R39.11 Hesitancy of micturition; N18.30 Chronic kidney disease, stage 3 unspecified
CPT/HCPCS: 36415; 51702; 70450; 71045; 80053; 80061; 80306; 81003; 82607; 82746; 83036; 83540; 83550; 83735; 83880; 84100; 84145; 84443; 85025; 85378; 85610; 85730; 86140; 86403; 87040; 87449; 93005; 93306; 94640; 94664; 96365; 96375; 96376; 99285; J0696; J3490

== ENCOUNTER 2022-06-08 12:42 | Emergency (ER) | payer MEDICARE, OTHER, SELFPAY ==
[2022-06-08] VITALS (34 sets, daily range): BP systolic 89–146; BP diastolic 55–103; PULSE 79–147; RESP 12–25; TEMP 36.3; O2SAT 84–100; BMI 31.4
--- NOTE | 2022-06-08 12:46 | XRR_ITS ---
PROCEDURE INFORMATION: Exam: XR Chest Exam date and time: 06/08/2022 1:32 PM Age: 87 years old Clinical indication: Dyspnea; Additional info: Dyspena TECHNIQUE: Imaging protocol: Radiologic exam of the chest. Views: 1 view. COMPARISON: CR XR chest 1V portable [id number] 06/06/2022 2:41 PM FINDINGS: Lungs: Unremarkable. No consolidation. Pleural spaces: Unremarkable. No pleural effusion. No pneumothorax. Heart/Mediastinum: Unremarkable. No cardiomegaly. Bones/joints: Unremarkable. XR/XR chest 1V portable [id number] IMPRESSION: No acute findings.
--- NOTE | 2022-06-08 12:56 | ECG_ITS ---
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 Measurements Intervals [place] Rate: 124 P: MA: QRS: -16 QRSD: 128 T: 141 QT: 304 QTc: 437 Interpretive Statements ATRIAL FIBRILLATION WITH RAPID VENTRICULAR RESPONSE WITH ABERRANT CONDUCTION OR VENTRICULAR PREMATURE COMPLEXES SEPTAL MYOCARDIAL INFARCTION , PROBABLY RECENT ACUTE MD Compared to ECG 06/06/2022 14:23:26 Ventricular premature complex(es) now present Aberrant conduction of supraventricular beat(s) now present Myocardial infarct finding now present Intraventricular conduction delay no longer present T-wave abnormality no longer present Possible ischemia no longer present Electronically Signed On 06-08-2022 18:02:14 CDT by Spring Wood M.D. [id number]
[2022-06-08 13:12] LABS: Basophils # 0.1 10^3/uL (0.0-0.1); Basophils % 0.3 %; Eosinophils # 0.1 10^3/uL (0.0-0.8); Eosinophils % 0.5 %; Hematocrit 35.4 % (37.0-47.0); Hemoglobin 10.9 g/dL (11.5-15.3); Mean Corpuscular HGB Conc 30.8 g/dL (30.0-36.0); Mean Platelet Volume 10.9 fL (7.4-10.4); Monocytes % 5.3 %; Neutrophils # 13.35 10^3/uL (1.8-7.7); Neutrophils % 74.9 %; Nucleated Red Blood Cells % 0 %; Platelet Count 349 10^3/cmm (130-400); Red Blood Count 3.89 10^6/uL (4.1-5.3); Red Cell Distribution Width 15.6 % (12.1-15.1); White Blood Count 17.8 10^3/uL (4.0-10.0)
--- NOTE | 2022-06-08 13:16 | CT_ITS ---
WS: [id number] CTA CHEST WITH CT ABDOMEN AND PELVIS. HISTORY: Back and pelvic pain. TECHNIQUE: CT angiogram is performed through the chest, pre and postcontrast. Additional imaging is p erformed through the abdomen and pelvis with IV contrast. Sagittal and coronal reformats have been selby bmitted. MIP imaging also reviewed. All CT scans at [facility] use at least one of these dose optimization techniques: automated exposure control; mA and/or kV adjustment per patient size (inclu soledad targeted exams where dose is matched to clinical indication); or iterative reconstruction. Contrast: Omnipaque 350; 80 cc IV. DLP: 1784.57 mGy.cm COMPARISON: No similar studies. Chest CTA: Atherosclerotic plaque throughout the thoracic aorta. No aneurysm. Extensive atherosclerot ic plaque with no dissection apparent. Good contrast opacification of the central pulmonary arteries. No central filling defect. Mild dependent changes at the lung bases. No pneumonia. Mild enlargement of the LEFT heart chambers. No mediastinal or hilar adenopathy. Abdomen CT: Liver, spleen and pancreas are negative. No adrenal mass. Bilateral renal atrophy with no obstruction. Small amount of fluid along the posterior RIGHT kidney. LEFT renal cysts with the large st measuring 2.6 x 2.4 cm. No solid mass. Continued atherosclerotic plaque throughout the aorta. Ther e is a moderate stenosis involving the infrarenal aorta into the iliac arteries. Normal gallbladder. Nondistended stomach. No small bowel obstruction. Prior appendectomy. Postsurgica l changes and anastomosis in the RIGHT colon with no obstruction. Sigmoid diverticular disease. Enlarged RIGHT psoas muscle with adjacent inflammatory changes beginning at the level of the superior retroperitoneum and extending inferiorly into the iliac is muscle. The psoas muscle is enlarged with multiple small low-attenuation lesion which are probably developing abscesses with air-fluid levels. These are very small abscesses measuring up to 11 mm in diameter. Normal appearance of the RIGHT pso as muscle. Pelvic CT: Normally distended urinary bladder. No free fluid or adenopathy in the pelvis. Uterus is a trophic. 2 mm displaced fracture involving the posterior superior L2 vertebral body. Fracture extends to the p osterior vertebral body. Paravertebral soft tissue edema extends into the RIGHT psoas muscle. CT/CT angio chest abdomen pelvis IMPRESSION: 1. Enlarged RIGHT psoas muscle with multifocal small cystic structures with ai r-fluid levels. Differential includes retroperitoneal abscess. Also within the differential is a RIGHT psoas muscle hemorrhage as there is an adjacent acute a ppearing L2 fracture. The acute changes surrounding the L2 vertebral body may b e hemorrhage and extend directly into the RIGHT psoas muscle. 2. No pulmonary embolism. 3. No aortic aneurysm or dissection. 4. Extensive atherosclerotic plaque within the abdominal aorta with areas of s tenosis and narrowing.
[2022-06-08 13:29] LABS: Troponin(5th) Baseline 30 ng/L (0-10)
[2022-06-08 13:30] LABS: Alanine Aminotransferase 18 U/L (0-33); Albumin Level 3.3 g/dL (3.5-5.2); Alkaline Phosphatase 93 U/L (35-105); Aspartate Amino Transferase 27 U/L (0-32); Blood Urea Nitrogen 31 mg/dL (8-23); Calcium 9.7 mg/dL (8.5-10.5); Carbon Dioxide 20 mmol/L (22-29); Chloride 98 mmol/L (98-107); Glucose 152 mg/dL (65-115); Lipase 77 U/L (13-60); Osmolality Calculated 294 mOsm/kg (285-295); Sodium 137 mmol/L (136-145); Total Bilirubin 0.5 mg/dL (0.15-1.2); Total Protein 7.3 g/dL (6.6-8.7)
[2022-06-08 13:31] LABS: Anion Gap 23.1 (5-19)
[2022-06-08 13:32] LABS: Potassium 4.1 mmol/L (3.5-5.1)
[2022-06-08] MEDS: sodium chloride 0.9% 500 ML IV (13:37)
[2022-06-08] MEDS: dilTIAZem 5 mg/mL SDV 5 mL 20 MG IVP (13:38)
[2022-06-08] MEDS: dilTIAZem 60 mg Tablet PO (13:38)
[2022-06-08 13:39] LABS: Lactate (Lactic Acid level) 4.8 mmol/L (0.5-2.2)
--- NOTE | 2022-06-08 13:53 | W.ED.GENADLT ---
HPI - General Adult General: Chief complaint: Extremity Injury, Lower Stated complaint: BACK PAIN/ CHEST PAIN Time Seen by Provider: 06/08/22 12:45 History of Present Illness: Patient is an 87-year-old female with history of atrial fibrillation, CKD, hyperlipidemia, recent back fracture who presents the emergency room for evaluation of body aches, generalized weakness, shortness of breath and chest pain x 1 day. Patient tells me she has been having symptoms for the last 3 days now worsening. Onset:3 days ago Duration:3 days Location:home Severity:moderate Associated symptoms: Reports chest pain, dyspnea and malaise; Deny nausea, rash, palpitations or vomiting Review of Systems Const: Reports: chills, body aches, fatigue and malaise; Denies: fever(s) Eyes: Denies: change in vision ENMT: Denies: mouth pain Card: Reports: chest pain; Denies: palpitations Resp: Reports: dyspnea; Denies: non-productive cough GI: Denies: abdominal pain, nausea, vomiting or diarrhea : Denies: dysuria Musc: Reports: back pain (+R lower back pain); Denies: extremity pain Skin/Breast: Denies: rash or new lesions Neuro: Denies: weakness in extremities Psych: Reports: other (Normal mood) Jameel/Lymph: Denies: easy bruising PFSH ED PFSH: Medical History Atrial fibrillation CKD (chronic kidney disease) stage 3, GFR 30-59 ml/min Heart disease High risk medication use Hypercholesteremia Infectious hepatitis 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 Lumbar vertebral fracture Melena Osteoporosis Surgical History History of resection of large bowel S/P appendectomy S/P cataract extraction S/P colonoscopy with polypectomy Family History Father Cancer Myocardial infarction CAD (coronary artery disease) Brother Cancer Myocardial infarction Stroke CAD (coronary artery disease) Sister Cancer Myocardial infarction Stroke Hypertension CAD (coronary artery disease) Mother Myocardial infarction CAD (coronary artery disease) Daughter Stroke Other Anesthesia complication Family history of premature coronary artery disease Hyperlipidemia Rheumatoid arthritis Denies family history of Lupus Social History Smoking and tobacco status: former smoker Alcohol intake: never Caregiver/support person: Yes Household members: family Housing: House History of recent travel: No Physical Exam Const: COMMON NORMALS: alert HENMT: COMMON NORMALS: atraumatic HEAD & SCALP: atraumatic MOUTH: moist mucous membranes not abnormal Eye: COMMON NORMALS: EOMs intact bilaterally and conjunctivae normal CONJUNCTIVA: Yes conjunctivae normal Neck/C-Spine: COMMON NORMALS: full ROM and supple Resp: COMMON NORMALS: normal respiratory effort and clear to auscultation bilaterally AUSCULTATION: clear to auscultation bilaterally Cardio: OTHER: irregular tacyhcardia GI: COMMON NORMALS: Soft to palpation and non-tender PALPATION: Yes Soft to palpation OTHER: No focal TTP. NO guarding rebound, guarding, rigidity. No CVA tenderness to percussion. Neg Chiu/Neg McBurney's point tenderness, no suprabupic tenderness to palpation. Extremity: COMMON NORMALS: full ROM Neuro: SENSORIUM/ORIENTATION: Yes alert MOTOR EXAM: No Abnormal motor strength present and Other motor observations present (no focal motor deficits) Psych: COMMON NORMALS: speech normal SPEECH: Yes normal speech MOOD & AFFECT: Yes euthymic mood Course Vital Signs: Vital signs: Vital Signs Temperature 97.3 F L 06/08/22 12:45 Pulse Rate 127 H 06/08/22 21:06 Respiratory Rate 12 06/08/22 21:06 Blood Pressure 140/93 06/08/22 21:06 Pulse Oximetry 99 06/08/22 21:06 Oxygen Delivery Me thod 06/08/22 21:06 Oxygen Flow Rate 2 06/08/22 21:06 [facility] - General Adult Medical Decision Making Patient is an 87-year-old female with history of atrial fibrillation, CKD, hyperlipidemia, recent back fracture who presents the emergency room for evaluation of body aches, generalized weakness, shortness of breath and chest pain x 1 day. On exam, patient has been moderate right CVA area tenderness palpation. Rest of exam unremarkable. 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 Patient received multiple doses of Cardizem with improvement in heart rate. Patient received 1.5 L of fluid. Initial lactate 4.3. White count 17.8. Creatinine 1.7. Patient received vancomycin, cefepime and metronidazole. Given age, we and risk factors, we will not give 30cc/kg of IVF CT abdomen showed multiple air pockets of the right psoas concerning for psoas abscess. Case was discussed with our general surgeon Dr. Ramos who recommended transferring patient for IR management of psoas abscess. Continues to be hemodynamically stable. Heart rates on reassessment in the 110s to 120s. Patient has no complaints of pain. Case was discussed with Dr. Osorio who agreed with the transfer to [facility] for management of possible psoas abscess, afib with rvr, and generalized weakness. Disposition: Transfer to outside hospital Lab Data : 06/08/22 13:00 06/08/22 13:00 Radiology Impressions Chest X-Ray 06/08/22 12:46 IMPRESSION: No acute findings. Chest/Abdomen/Pelvis CTA 06/08/22 13:16 IMPRESSION: 1. Enlarged RIGHT psoas muscle with multifocal small cystic structures with air-fluid levels. Differential includes retroperitoneal abscess. Also within the differential is a RIGHT psoas muscle hemorrhage as there is an adjacent acute appearing L2 fracture. The acute changes surrounding the L2 vertebral body may be hemorrhage and extend directly into the RIGHT psoas muscle. 2. No pulmonary embolism. 3. No aortic aneurysm or dissection. 4. Extensive atherosclerotic plaque within the abdominal aorta with areas of stenosis and narrowing. Head CT 06/08/22 14:32 IMPRESSION: 1. No acute intracranial hemorrhage or edema. 2. Mild atrophy and moderate small vessel ischemic disease. 3. Very mild RIGHT frontal ethmoid sinusitis. No air-fluid levels within the sinuses. Laboratory Results WBC 17.8 10^3/uL (4.0-10.0) H 06/08/22 13:00 RBC 3.89 10^6/uL (4.1-5.3) L 06/08/22 13:00 Hgb 10.9 g/dL (11.5-15.3) L 06/08/22 13:00 Hct 35.4 % (37.0-47.0) L 06/08/22 13:00 MCV 91.0 fl (81-99) 06/08/22 13:00 MCH 28.0 pg (28.0-34.0) 06/08/22 13:00 MCHC 30.8 g/dL (30.0-36.0) 06/08/22 13:00 RDW 15.6 % (12.1-15.1) H 06/08/22 13:00 Plt Count 349 10^3/cmm (130-400) 06/08/22 13:00 MPV 10.9 fL (7.4-10.4) H 06/08/22 13:00 Neut % (Auto) 74.9 % 06/08/22 13:00 Lymph % (Auto) 17.0 % 06/08/22 13:00 [place] % (Auto) 5.3 % 06/08/22 13:00 Eos % (Auto) 0.5 % 06/08/22 13:00 Baso % (Auto) 0.3 % 06/08/22 13:00 Neut # (Auto) 13.35 10^3/uL (1.8-7.7) H 06/08/22 13:00 Lymph # (Auto) 3.0 10^3/uL (0.8-4.8) 06/08/22 13:00 [place] # (Auto) 1.0 10^3/uL (0.2-0.9) H 06/08/22 13:00 Eos # (Auto) 0.1 10^3/uL (0.0-0.8) 06/08/22 13:00 Baso # (Auto) 0.1 10^3/uL (0.0-0.1) 06/08/22 13:00 Nucleated RBC % (auto) 0 % 06/08/22 13:00 Nucleated RBCs # 0.0 /100WBC 06/08/22 13:00 PT 44.20 SECONDS (12.1-14.9) H 06/08/22 13:00 INR 4.67 (0.8-1.2) H 06/08/22 13:00 Sodium 137 mmol/L (136-145) 06/08/22 13:00 Potassium 4.1 mmol/L (3.5-5.1) 06/08/22 13:00 Chloride 98 mmol/L (98-107) 06/08/22 13:00 Carbon Dioxide 20 mmol/L (22-29) L 06/08/22 13:00 Anion Gap 23.1 (5-19) H 06/08/22 13:00 BUN 31 mg/dL (8-23) H 06/08/22 13:00 Creatinine 1.7 mg/dL (0.5-0.9) H 06/08/22 13:00 GFR Calculation Not Reportable 06/08/22 13:00 Glucose 152 mg/dL (65-115) H 06/08/22 13:00 Calculated Osmolality 294 mOsm/kg (285-295) 06/08/22 13:00 Lactate 2.7 mmol/L (0.5-2.2) H 06/08/22 15:20 Calcium 9.7 mg/dL (8.5-10.5) 06/08/22 13:00 Total Bilirubin 0.5 mg/dL (0.15-1.2) 06/08/22 13:00 AST 27 U/L (0-32) 06/08/22 13:00 ALT 18 U/L (0-33) 06/08/22 13:00 Alkaline Phosphatase 93 U/L (35-105) 06/08/22 13:00 Troponin T Baseline 30 ng/L (0-10) H 06/08/22 13:00 Troponin T 120 Minute 24.27 ng/L (0-10) H 06/08/22 15:20 Delta Troponin T -5.73 ABS# (0-10) L 06/08/22 15:20 Total Protein 7.3 g/dL (6.6-8.7) 06/08/22 13:00 Albumin 3.3 g/dL (3.5-5.2) L 06/08/22 13:00 Globulin 4.0 g/dL (1.3-4.6) 06/08/22 13:00 Lipase 77 U/L (13-60) H 06/08/22 13:00 TSH 4.29 uIU/mL (0.27-4.20) H 06/08/22 13:00 Free T4 1.06 ng/dL (0.82-1.77) 06/08/22 13:00 Urine Color Yellow (Yellow) 06/08/22 16:44 Urine Appearance Clear (CLEAR) 06/08/22 16:44 Urine pH 5 (5-7) 06/08/22 16:44 Ur Specific [place] 1.015 (1.005-1.030) 06/08/22 16:44 Urine Protein Neg (Negative) 06/08/22 16:44 Urine Glucose (UA) Norm (Normal) 06/08/22 16:44 Urine Ketones Negative (Negative) 06/08/22 16:44 Urine Blood Neg (Negative) 06/08/22 16:44 Urine Nitrate Negative (Negative) 06/08/22 16:44 Urine Bilirubin Neg (Negative) 06/08/22 16:44 Urine Urobilinogen Neg mg/dL (Negative) 06/08/22 16:44 Ur Leukocyte Esterase Negative (Negative) 06/08/22 16:44 Coronavirus 229E (PCR) Not detected (NOT DETECT) 06/08/22 15:15 SARS-CoV-2 (PCR) Detected (NOT DETECT) A 06/08/22 15:15 Imaging Data Other Imaging: Radiologist's impression: Close Chest X-Ray (Signed) [place] - 06/08/22 Launch?[place] [id number] XRay Report Signed Patient: Madai Zepeda Unit #: [id number] : 1935 Age/Sex: 87 / F ADM Date: 06/08/22 Loc: ER Room/Bed: Attending Dr: Ordering Provider/Ordering MD: Nikolay Child MD Date of Service: 06/08/22 Procedure(s): XR chest 1V portable [id number] Accession Number(s): [id number] Report Number: [id number] PROCEDURE INFORMATION: Exam: XR Chest Exam date and time: 06/08/2022 1:32 PM Age: 87 years old Clinical indication: Dyspnea; Additional info: Dyspena TECHNIQUE: Imaging protocol: Radiologic exam of the chest. Views: 1 view. COMPARISON: CR XR chest 1V portable [id number] 06/06/2022 2:41 PM FINDINGS: Lungs: Unremarkable. No consolidation. Pleural spaces: Unremarkable. No pleural effusion. No pneumothorax. Heart/Mediastinum: Unremarkable. No cardiomegaly. Bones/joints: Unremarkable. XR/XR chest 1V portable [id number] IMPRESSION: No acute findings. ? Dictated By: [place] Signed By: [place] Signed Date/Time: 06/08/22 1359 DD/ 1332 Critical Care Time Critical Care Time: Critical Care Time: Yes Total Critical Care Time: 35 Attestation: The high probability of a clinically significant, sudden or life threatening deterioration of the patient's hematological system(s) required my full and direct attention, intervention and personal management. The critical care time is as shown. This time is in addition to time spent performing any reported procedures but includes the following: [x] Data and vital sign review and interpretation [x] Patient assessment, examination and intervention [x] Documentation [x] Medication orders and management Discharge Plan Discharge Patient Disposition: Transfer to ED Clinical Impression: Abscess, psoas, Sepsis, Atrial fibrillation with RVR Condition: Stable Prescriptions: No Action warfarin 3 mg tablet 3 mg PO DIRECTED Qty: 90 3RF Protocol: Dose Management Condition: Tuesday Dose/Route: 3 mg Instruction: 1 x 3 mg tablet Condition: Tuesday Dose/Route: 3 mg Instruction: 1 x 3 mg tablet Condition: Tuesday Dose/Route: 3 mg Instruction: 1 x 3 mg tablet Condition: Tuesday Dose/Route: 3 mg Instruction: 1 x 3 mg tablet Condition: Dose/Route: 3 mg Instruction: 1 x 3 mg tablet Condition: Tuesday Dose/Route: 3 mg Instruction: 1 x 3 mg tablet Condition: Tuesday Dose/Route: 3 mg Instruction: 1 x 3 mg tablet Protocol Text: Adjustment Start Date: Tuesday05/10/22 INR Value: 27.5 Seconds INR Date: 05/10/22 Recheck Date: 06/07/22 Rx Instructions: take as directed according to inr cholecalciferol (vitamin D3) [Vitamin D3] 25 mcg (1,000 unit) Capsule 50 mcg PO DAILY diltiazem HCl 240 mg capsule,extended release 24hr 240 mg PO DAILY atorvastatin 20 mg tablet 20 mg PO BEDTIME metoprolol succinate 100 mg tablet extended release 24 hr 100 mg PO BEDTIME metoprolol succinate 25 mg tablet extended release 24 hr 25 mg PO BEDTIME Rx Instructions: Take in addition to the 100mg daily to equal 125mg Zantac-360 (famotidine) 10 mg Tablet 10 mg PO DAILY tramadol 50 mg Tablet 50 mg PO TID PRN (Reason: Pain) furosemide [Lasix] 20 mg tablet 20 mg PO .THREE TIMES WEEKLY Prolia 60 mg/mL Syringe 60 mg SUBCUT Q180D meclizine 25 mg Tablet 25 mg PO TID PRN (Reason: Dizziness) Qty: 14 0RF fluticasone propionate 50 mcg/actuation [place],Suspension 1 spray nasal BID Qty: 50 0RF loratadine 10 mg Tablet 10 mg PO DAILY Qty: 14 0RF Spiriva with HandiHaler 18 mcg Capsule, W/Inhalation Device 18 mcg inhalation DAILY.RESPIRATORY Qty: 30 0RF fluticasone propion-salmeterol [Advair Diskus] 250-50 mcg/dose blister with device 1 inh inhalation BID Qty: 60 0RF diltiazem HCl [Cardizem LA] 360 mg tablet extended release 24 hr 360 mg PO DAILY Qty: 30 0RF lisinopril 10 mg tablet 10 mg PO DAILY Qty: 30 0RF Referrals: Michael Kumar DO [Primary Care Provider] - Coding Level of Care Code ED Cable Lacer for Chg Fwd Exam Comprehensive
[2022-06-08 13:55] LABS: Free T4 Free Thyroxine 1.06 ng/dL (0.82-1.77); Thyroid Stimulating Hormone 4.29 uIU/mL (0.27-4.20)
--- NOTE | 2022-06-08 14:32 | CT_ITS ---
WS: [id number] CT HEAD NONCONTRAST HISTORY: worsening sinusitis TECHNIQUE: Contiguous axial imaging performed through the brain in 2.5 mm imaging. Bone and soft tiss ue windows. Sagittal and coronal reformats reviewed. All CT scans at [facility] use at least one of these dose optimization techniques: automated exposure control; mA and/or kV adjustment per pa tient size (includes targeted exams where dose is matched to clinical indication); or iterative recon struction. DLP: 1081.08 mGy.cm COMPARISON: 06/06/2022 No acute intracranial hemorrhage, midline shift or mass effect. Mild atrophy and moderate small vessel ischemic disease. No infarct or prior lacunar infarct. Mild c erebellar atrophy. Ventricles: Normal size with no hydrocephalus. No inferior displacement of the cerebellar tonsils. Paranasal sinuses: Small amount mucoperiosteal thickening in the anterior RIGHT frontal ethmoid reces s. No air-fluid levels. Mastoid air cells: Well pneumatized. Calvarium and scalp: Skull is intact with no soft tissue edema or swelling. CT/CT head wo con* [id number] IMPRESSION: 1. No acute intracranial hemorrhage or edema. 2. Mild atrophy and moderate small vessel ischemic disease. 3. Very mild RIGHT frontal ethmoid sinusitis. No air-fluid levels within the s inuses.
[2022-06-08] MEDS: iohexol 350 mg/mL 100 mL Btl IV (14:50)
[2022-06-08] MEDS: sodium chloride 0.9% 1,000 ML 999 ML IV (15:08)
[2022-06-08] MEDS: cefepime 1,000 MG in sodium chloride 0.9% (plus) 50 ML 100 MG IV (15:09)
--- NOTE | 2022-06-08 15:19 | ECG_ITS ---
[facility] Test Date: 2022-06-08 Pat Name: Madai Zepeda Department: Room: Gender: Female Press Tender Smoke Signal: : 1935 Requested By: Nikolay Child Order Number: [id number] Elisabet MD: Spring Wood M.D. Measurements Intervals [place] Rate: 120 P: CO: QRS: -15 QRSD: 126 T: 146 QT: 323 QTc: 457 Interpretive Statements ATRIAL FIBRILLATION WITH RAPID VENTRICULAR RESPONSE SEPTAL MYOCARDIAL INFARCTION , PROBABLY RECENT ST DEPRESSION, CONSIDER SUBENDOCARDIAL INJURY Compared to ECG 06/08/2022 12:56:19 ST (T wave) deviation now present Ventricular premature complex(es) no longer present Aberrant conduction of supraventricular beat(s) no longer present Myocardial infarct finding still present Electronically Signed On 06-08-2022 18:07:18 CDT by Spring Wood M.D. [id number]
[2022-06-08 16:09] LABS: Troponin 5 2HR 24.27 ng/L (0-10); Troponin 5 2HR Delta -5.73 ABS# (0-10)
[2022-06-08 16:11] LABS: Lactate (Lactic Acid level) 2.7 mmol/L (0.5-2.2)
[2022-06-08] MEDS: vancomycin 1,000 MG in sodium chloride 0.9% 250 ML 250 MG IV (16:40)
[2022-06-08] MEDS: dilTIAZem 5 mg/mL SDV 5 mL 10 MG IVP (16:41)
[2022-06-08 17:19] LABS: Add Urine Microscopic? NO; Charge for UA Resulting for Rev
[2022-06-08 17:22] LABS: Bilirubin Urine Neg (Negative); Blood Urine Neg (Negative); Glucose Urine UA Norm (Normal); Ketones Urine Negative (Negative); Leukocyte Esterase Urine Negative (Negative); Nitrate Urine Negative (Negative); Protein Urine Neg (Negative); Specific Gravity, Urine 1.015 (1.005-1.030); Urine Appearance Clear (CLEAR); Urine Color Yellow (Yellow); Urobilinogen Urine Neg (Negative); pH Urine 5 (5-7)
--- NOTE | 2022-06-08 17:45 | P.CONIM_ITS ---
Providers/Reason For Consult Consulting Physician/Specialty*: General surgery Reason for Consult*: Psoas abscess Requesting Physician: Dr. Child Primary Care Provider: Michael Kumar DO History of Present Illness History of Present Illness Madai Zepeda is a 87 year old female. She presented to the hospital today with nausea, vomiting, chest pressure and right back pain. She has a complicated medical history. She was diagnosed with COVID with a home test about 2 weeks ago, she also was having sinusitis. She fell on June 01 and sustained an acute lumbar fracture. She was standing yesterday while at then felt bright light all over her and then fell and was not able to move for several hours until she activated her help button. Specifically, she denies loss of consciousness. She was evaluated by her physician as well as emergency room, brace was ordered and applied, there was concern about urinary tract infection and Joseph catheter was placed with return of 500 cc of urine, however, urine culture was negative. The patient went home however continues to have problems, this morning she was very weak and was unable to get out of bed, she was vomiting several times and was not able to keep anything down. She was taking tramadol for several days. She is on C oumadin for atrial fibrillation, last INR was 3.34 on June 06. She was also diagnosed with a uterine prolapse which probably contributes to her urinary retention. There was concern about PE and heart attack on this admission, she was evaluated by the emergency room physician, both were ruled out. CT scan demonstrated changes of the right psoas muscle, surgery was consulted to assist with ev aluation and management. Her main concern is generalized weakness and slight back pain. At the time of my evaluation she denies chest pain or pressure, it resolved. She has no other complaints. Review of Systems Narrative: 10 point review of systems is negative except as per HPI Medications/Allergies Home Medications Medication Instructions Recorded Confirmed Last Taken Type cholecalciferol (vitamin D3) 25 50 mcg PO DAILY 06/23/20 06/08/22 06/07/22 History mcg (1,000 unit) capsule (Vitamin D3) warfarin 3 mg tablet 3 mg PO DIRECTED #90 tabs 04/01/22 06/08/22 06/07/22 Rx denosumab 60 mg/mL subcutaneous 60 mg SUBCUT Q180D 06/06/22 06/08/22 03/05/22 History syringe (Prolia) furosemide 20 mg tablet (Lasix) 20 mg PO .THREE TIMES WEEKLY 06/06/22 06/08/22 06/07/22 History tramadol 50 mg tablet 50 mg PO TID PRN Pain 06/06/22 06/08/22 06/07/22 History diltiazem HCl 360 mg 360 mg PO DAILY #30 tabs 06/07/22 06/08/22 Unknown Rx tablet,extended release 24 hr (Cardizem LA) fluticasone 250 mcg-salmeterol 50 1 inh inhalation BID #60 ea 06/07/22 06/08/22 Unknown Rx mcg/dose blistr powdr for inhalation (Advair Diskus) fluticasone propionate 50 1 spray nasal BID #50 grams 06/07/22 06/08/22 06/07/22 Rx mcg/actuation nasal spray,suspension lisinopril 10 mg tablet 10 mg PO DAILY #30 tabs 06/07/22 06/08/22 Unknown Rx loratadine 10 mg tablet 10 mg PO DAILY #14 tabs 06/07/22 06/08/22 06/07/22 Rx meclizine 25 mg tablet 25 mg PO TID PRN Dizziness #14 tabs 06/07/22 06/08/22 Unknown Rx tiotropium bromide 18 mcg capsule 18 mcg inhalation 06/07/22 06/08/22 Unknown Rx with inhalation device (Spiriva DAILY.RESPIRATORY #30 inhalations with HandiHaler) atorvastatin 20 mg tablet 20 mg PO BEDTIME 06/08/22 06/08/22 06/07/22 History diltiazem HCl 240 mg 240 mg PO DAILY 06/08/22 06/08/22 06/07/22 History capsule,extended release 24 hr famotidine 10 mg tablet 10 mg PO DAILY 06/08/22 06/08/22 06/07/22 History (Zantac-360 (famotidine)) metoprolol succinate 100 mg 100 mg PO BEDTIME 06/08/22 06/08/22 06/07/22 History tablet,extended release 24 hr metoprolol succinate 25 mg 25 mg PO BEDTIME 06/08/22 06/08/22 06/07/22 History tablet,extended release 24 hr Allergies Allergy/AdvReac Type Severity Reaction Status Date / Time levofloxacin Allergy Unknown Unknown Verified 06/08/22 13:40 sulfamethoxazole Allergy Unknown Unknown Verified 06/08/22 13:40 [From Bactrim] trimethoprim [From Bactrim] Allergy Unknown Unknown Verified 06/08/22 13:40 Penicillins Allergy Unknown Verified 06/08/22 13:40 Reviewed. She vomited all her morning medications. Antibiotics were prescribed to take at home, however, it seems that she was not taking them. 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 Lumbar vertebral fracture Melena Osteoporosis Surgical History History of resection of large bowel S/P appendectomy S/P cataract extraction S/P colonoscopy with polypectomy Family History Father Cancer Myocardial infarction CAD (coronary artery disease) Brother Cancer Myocardial infarction Stroke CAD (coronary artery disease) Sister Cancer Myocardial infarction Stroke Hypertension CAD (coronary artery disease) Mother Myocardial infarction CAD (coronary artery disease) Daughter Stroke Other Anesthesia complication Family history of premature coronary artery disease Hyperlipidemia Rheumatoid arthritis Denies family history of Lupus Social History Smoking and tobacco status: former smoker Alcohol intake: never Caregiver/support person: Yes Household members: family Housing: House History of recent travel: No Vitals/I&O/Wt Last Vital Signs Temp 97.3 F L 06/08/22 12:45 Pulse 79 06/08/22 14:00 Resp 25 H 06/08/22 13:47 BP 111/55 06/08/22 14:00 Pulse Ox 96 06/08/22 14:00 O2 Del Method 06/08/22 14:00 06/08/22 06/08/22 06/08/22 06:59 14:59 22:59 Intake Total 1550 / 1550 Balance 1550 / 1550 Weight last 48 hrs Weight 195 lb Physical Exam Narrative: General: [No acute distress] Psych: [AAOx3] Eyes: [sclerae are white] Head/ENT: [normocephalic, symmetric] CV: Irregular pulse, no JVD Lungs: [symmetrical chest rise] Abdomen: Soft, mild tenderness to palpation on the right side in the projection of the psoas muscle. Right flank area is tender to palpation, consistent with known pathologic process in the psoas muscle. Very small bruise on the anterior thigh on the right side. Ext: [no obvious traumatic deformities] Skin: warm Data : 06/08/22 13:00 06/08/22 13:00 Other Labs: Labs reviewed. White blood cell count is up, serum creatinine is up, consistent with acute kidney injury, possibly secondary to infection. I will order INR Micro: Microbiology 06/08/22 15:20 Blood Culture - Preliminary Blood SPECIMEN COLLECTED 06/08/22 14:21 Blood Culture - Preliminary Blood SPECIMEN COLLECTED A&P Assessment and plan (1) Abscess, psoas: Status: Acute (2) Sepsis: Status: Acute (3) Atrial fibrillation with RVR: Status: Acute (4) Right maxillary sinusitis: Status: Acute (5) COVID-19: Status: Acute (6) Dizziness on standing: Status: Acute (7) High risk medication use: Status: Acute (8) Psoas hematoma, left, secondary to anticoagulant therapy: Status: Acute Plan Patient history and physical exam and CT scan findings are consistent with right psoas hematoma. On my review of the CT scan the changes in the right psoas muscle are most prominent near the fracture site, she is taking anticoagulation, she has a history of fall on this side. The question is if this hematoma infected or not. It is difficult to tell right now. I do not see any air in the muscle, only small areas of fluid collections which may be hematoma or may be infection. I do not see any indications for a surgical intervention at this time. Fluid collections are too small to be sampled effectively by an interventional radiology, additionally, I was told that there is no interventional radiology available at [facility] who can perform this procedure. I think she does not need any procedures right now, she needs to be treated for infection and then reassessed in a day or 2. Hemoglobin level need to be monitored as well. Discussed with the patient and her daughters. If interventional radiology is not available at [facility], they would like to be transferred to a higher level of care. All questions were answered. I ordered INR to see if her level is even higher than 2 days ago Other sources of her weakness and recent deterioration may include COVID infection, urinary retention in the settings of recent urinary manipulation, i.e. Joseph placement, sinusitis, tramadol intake. I will defer evaluation and management of these medical problems to medicine team. Discussed with the emergency room physician Dr. Child At this time general surgery will sign off. Please, call with any questions/concerns. Coding Level of Care Code Acute Roadability Machine Operator for [facility] Fwd Diagnoses Abscess, psoas K68.12 Sepsis A41.9 Atrial fibrillation with RVR I48.91 Right maxillary sinusitis J32.0 COVID-19 U07.1 Dizziness on standing R42 High risk medication use Z79.899 Psoas hematoma, left, secondary to anticoagulant therapy S30.1XXA
[2022-06-08 17:58] LABS: INR 4.67 (0.8-1.2)
[2022-06-08] MEDS: metroNIDAZOLE IV 500 MG/100 ML PREMIX 100 MG IV (18:00)
[2022-06-08 18:02] LABS: Adenovirus Not Detected (NOT DETECT); Chlamydia Pneumoniae Not Detected (NOT DETECT); Coronavirus 229E,HKU1,NL63,OC4 Not Detected (NOT DETECT); Human Metapneumovirus Not Detected (NOT DETECT); Human Rhinovirus/Enterovirus Not Detected (NOT DETECT); Influenza A Not Detected (NOT DETECT); Influenza A H1 Not Detected (NOT DETECT); Influenza A H1-2009 Not Detected (NOT DETECT); Influenza A H3 Not Detected (NOT DETECT); Influenza B Not Detected (NOT DETECT); Mycoplasma Pneumoniae Not Detected (NOT DETECT); Parainfluenza Virus Type 1 Not Detected (NOT DETECT); Parainfluenza Virus Type 2 Not Detected (NOT DETECT); Parainfluenza Virus Type 3 Not Detected (NOT DETECT); Parainfluenza Virus Type 4 Not Detected (NOT DETECT); Respiratory Syncytial Virus A Not Detected (NOT DETECT); Respiratory Syncytial Virus B Not Detected (NOT DETECT); SARS-COV-2 Detected (NOT DETECT)
--- NOTE | 2022-06-08 18:46 | ECG_ITS ---
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 Measurements Intervals [place] Rate: 111 P: [place]: QRS: -22 QRSD: 118 T: 141 QT: 329 QTc: 447 Interpretive Statements ATRIAL fibrillation WITH RAPID VENTRICULAR RESPONSE SEPTAL MYOCARDIAL INFARCTION , PROBABLY OLD [40+ ms Q WAVE IN V1/V2] MODERATE T-WAVE ABNORMALITY, CONSIDER LATERAL ISCHEMIA Compared to ECG 06/08/2022 15:19:53 T-wave abnormality now present Possible ischemia now present ST (T wave) deviation no longer present Myocardial infarct finding still present Electronically Signed On 06-09-2022 9:43:18 CDT by Spring Wood M.D. [id number]
== END 2022-06-08 21:27 ==
PROVIDERS: Surgery; Emergency Provider Emergency Medicine; PCP Electrodiagnostic Medicine
DX: A41.9 Sepsis, unspecified organism (principal); I48.20 Chronic atrial fibrillation, unspecified; K68.12 Psoas muscle abscess; Z79.01 Long term (current) use of anticoagulants; U07.1 COVID-19; Z87.891 Personal history of nicotine dependence; N18.30 Chronic kidney disease, stage 3 unspecified
CPT/HCPCS: 12345; 36415; 70450; 71045; 71275; 74174; 80053; 81003; 83605; 83690; 84439; 84443; 84484; 85025; 85610; 87040; 87635; 93005; 96365; 96367; 96375; 96376; 99291; J0692; J3370; J3490; J7030; J7040; J7050; Q9967; S0030

== ENCOUNTER 2022-09-07 09:31 | Outpatient (CLI) | payer MEDICARE, OTHER, SELFPAY ==
[2022-09-07 11:18] VITALS: BP 161/60; PULSE 52; RESP 18; TEMP 36.3; O2SAT 92
[2022-09-07 11:27] LABS: 25 Hydroxy Vitamin D 65 ng/mL (30-100); Albumin Level 3.5 g/dL (3.5-5.2); Calcium 9.2 mg/dL (8.5-10.5)
[2022-09-07] MEDS: denosumab 60 mg SDV SUBCUT (11:27)
[2022-09-07 11:33] VITALS: BP 165/77; PULSE 52; RESP 18; TEMP 36.2; O2SAT 95
== END 2022-09-07 09:32 | disposition home or self-care (01) ==
PROVIDERS: PCP Electrodiagnostic Medicine; Visit Provider Internal Medicine Rheumatology
DX: M81.0 Age-related osteoporosis without current pathological fracture (principal); Z79.899 Other long term (current) drug therapy
CPT/HCPCS: 36415; 82040; 82306; 82310; 82565; 96372; J0897

== ENCOUNTER → 2022-10-13 15:37 | Outpatient (BNVA) | payer MEDICARE, OTHER, SELFPAY | PROVIDERS: PCP Electrodiagnostic Medicine; Visit Provider Internal Medicine Cardiovascular Disease | DX: R00.1 Bradycardia, unspecified (principal); R42 Dizziness and giddiness; I48.91 Unspecified atrial fibrillation; Z79.899 Other long term (current) drug therapy; N18.30 Chronic kidney disease, stage 3 unspecified; Z87.891 Personal history of nicotine dependence; E78.00 Pure hypercholesterolemia, unspecified | CPT/HCPCS: 80053; 83735; 83880; 84443; 93005; 99214; Q3014 ==

== ENCOUNTER → 2022-11-10 13:20 | Outpatient (BNVA) | payer MEDICARE, OTHER, SELFPAY | PROVIDERS: PCP Electrodiagnostic Medicine; Visit Provider Nurse Practitioner Family | DX: R42 Dizziness and giddiness (principal); R00.1 Bradycardia, unspecified; I44.0 Atrioventricular block, first degree; I48.0 Paroxysmal atrial fibrillation; Z79.01 Long term (current) use of anticoagulants | CPT/HCPCS: 85610; 93005; 99213 ==

== ENCOUNTER 2022-11-16 16:51 | Outpatient (CLI) | payer MEDICARE, OTHER, SELFPAY | END 2022-11-16 16:52 | disposition home or self-care (01) | PROVIDERS: PCP Electrodiagnostic Medicine; Visit Provider Internal Medicine Cardiovascular Disease | DX: R79.9 Abnormal finding of blood chemistry, unspecified (principal) | CPT/HCPCS: 36415; 85610 ==

== ENCOUNTER → 2022-12-21 15:29 | Outpatient (BNVA) | payer MEDICARE, OTHER, SELFPAY | PROVIDERS: PCP Electrodiagnostic Medicine; Visit Provider Internal Medicine Cardiovascular Disease | DX: I48.91 Unspecified atrial fibrillation (principal) | CPT/HCPCS: 85610 ==

== ENCOUNTER → 2022-12-30 15:57 | Outpatient (BNVA) | payer MEDICARE, OTHER, SELFPAY | PROVIDERS: PCP Electrodiagnostic Medicine; Visit Provider Internal Medicine Cardiovascular Disease | DX: I48.91 Unspecified atrial fibrillation (principal) | CPT/HCPCS: 85610 ==

== ENCOUNTER → 2023-01-04 14:40 | Outpatient (BNVA) | payer MEDICARE, OTHER, SELFPAY | PROVIDERS: PCP Electrodiagnostic Medicine; Visit Provider Internal Medicine Cardiovascular Disease | DX: I48.91 Unspecified atrial fibrillation (principal) | CPT/HCPCS: 85610 ==

== ENCOUNTER 2023-01-12 14:52 | Outpatient (CLI) | payer MEDICARE, OTHER, SELFPAY ==
[2023-01-12 15:46] LABS: Basophils # 0.1 10^3/uL (0.0-0.1); Basophils % 0.5 %; Eosinophils # 0.4 10^3/uL (0.0-0.8); Eosinophils % 4.3 %; Hematocrit 34.3 % (37.0-47.0); Hemoglobin 10.6 g/dL (11.5-15.3); Lymphocytes # 2.2 10^3/uL (0.8-4.8); Lymphocytes % 23.2 %; Mean Corpuscular HGB Conc 30.9 g/dL (30.0-36.0); Mean Corpuscular Hemoglobin 28.3 pg (28.0-34.0); Mean Corpuscular Volume 91.5 fl (81-99); Mean Platelet Volume 11.6 fL (7.4-10.4); Monocytes # 0.8 10^3/uL (0.2-0.9); Monocytes % 8.4 %; Neutrophils # 5.95 10^3/uL (1.8-7.7); Neutrophils % 63.3 %; Nucleated Red Blood Cells % 0 %; Platelet Count 219 10^3/cmm (130-400); Red Blood Count 3.75 10^6/uL (4.1-5.3); Red Cell Distribution Width 17.8 % (12.1-15.1); White Blood Count 9.4 10^3/uL (4.0-10.0)
[2023-01-12 16:12] LABS: Calcium 9.9 mg/dL (8.5-10.5)
[2023-01-12 16:14] LABS: Albumin Level 4.2 g/dL (3.5-5.2); Blood Urea Nitrogen 47 mg/dL (8-23); Calcium 10.1 mg/dL (8.5-10.5); Carbon Dioxide 28 mmol/L (22-29); Chloride 100 mmol/L (98-107); Glucose 101 mg/dL (65-115); Phosphorus 4.2 mg/dL (2.5-4.5); Sodium 139 mmol/L (136-145)
[2023-01-12 16:18] LABS: Parathyroid Hormone 27.5 pg/mL (15-65)
[2023-01-12 16:28] LABS: 25 Hydroxy Vitamin D 73 ng/mL (30-100)
[2023-01-12 17:24] LABS: Creatinine Urine, Random 93 mg/dL (28-217); Microalbumin Random Urine 5 ug/dL (0-20)
[2023-01-12 17:25] LABS: Microalbum Creatinine Ratio Ur 54 mg/dL (0-20)
== END 2023-01-12 14:53 | disposition home or self-care (01) ==
LOC: LAB 14:56
PROVIDERS: PCP Electrodiagnostic Medicine; Visit Provider Registered Nurse
DX: N18.32 Chronic kidney disease, stage 3b (principal)
CPT/HCPCS: 36415; 80069; 82044; 82306; 82310; 83970; 85025; 85610

== ENCOUNTER 2023-01-18 13:26 | Outpatient (CLI) | payer MEDICARE, OTHER, SELFPAY ==
[2023-01-18 15:28] LABS: Add Urine Microscopic? NO; Charge for UA Resulting for Rev
[2023-01-18 15:58] LABS: Prothrombin Time (Patient) 19.6 Seconds (12.0-15.1)
[2023-01-18 16:02] LABS: Blood Urea Nitrogen 41 mg/dL (8-23); Calcium 9.9 mg/dL (8.5-10.5); Carbon Dioxide 25 mmol/L (22-29); Chloride 103 mmol/L (98-107); Glucose 110 mg/dL (65-115); Osmolality Calculated 303 mOsm/kg (285-295); Sodium 141 mmol/L (136-145)
[2023-01-18 16:04] LABS: Anion Gap 17.6 (5-19); Potassium 4.6 mmol/L (3.5-5.1)
[2023-01-18 16:05] LABS: Bilirubin Urine Neg (Negative); Blood Urine Neg (Negative); Glucose Urine UA Norm (Normal); Ketones Urine Negative (Negative); Leukocyte Esterase Urine Negative (Negative); Nitrate Urine Negative (Negative); Protein Urine Neg (Negative); Specific Gravity, Urine 1.015 (1.005-1.030); Urine Appearance Clear (CLEAR); Urine Color Yellow (Yellow); Urobilinogen Urine Norm (Negative); pH Urine 5 (5-7)
== END 2023-01-18 13:27 | disposition home or self-care (01) ==
LOC: LAB 13:39
PROVIDERS: PCP Nurse Practitioner Family; Visit Provider Registered Nurse
DX: I48.91 Unspecified atrial fibrillation (principal); N18.32 Chronic kidney disease, stage 3b
CPT/HCPCS: 36415; 80048; 81003; 85610; 87077; 87086; 87186

== ENCOUNTER 2023-01-25 13:00 | Outpatient (CLI) | payer MEDICARE, OTHER, SELFPAY ==
[2023-01-25 14:03] LABS: INR 2.75 (0.83-1.21); Prothrombin Time (Patient) 30.1 Seconds (12.0-15.1)
[2023-01-25 14:15] LABS: Anion Gap 17.9 (5-19); Blood Urea Nitrogen 29 mg/dL (8-23); Calcium 9.8 mg/dL (8.5-10.5); Carbon Dioxide 24 mmol/L (22-29); Chloride 100 mmol/L (98-107); Glucose 85 mg/dL (65-115); Osmolality Calculated 289 mOsm/kg (285-295); Potassium 4.9 mmol/L (3.5-5.1); Sodium 137 mmol/L (136-145)
== END 2023-01-25 13:01 | disposition home or self-care (01) ==
PROVIDERS: PCP Nurse Practitioner Family; Referring Provider Registered Nurse; Visit Provider Internal Medicine Cardiovascular Disease
DX: I48.91 Unspecified atrial fibrillation (principal)
CPT/HCPCS: 80048; 85610

== ENCOUNTER → 2023-01-28 11:37 | Outpatient (BNVA) | payer MEDICARE, OTHER, SELFPAY | PROVIDERS: PCP Nurse Practitioner Family; Visit Provider Internal Medicine Cardiovascular Disease | DX: I48.91 Unspecified atrial fibrillation (principal) | CPT/HCPCS: 85610 ==

== ENCOUNTER → 2023-02-02 12:45 | Outpatient (BNVA) | payer MEDICARE, OTHER, SELFPAY | PROVIDERS: PCP Nurse Practitioner Family; Visit Provider Internal Medicine Cardiovascular Disease | DX: I48.91 Unspecified atrial fibrillation (principal); Z79.01 Long term (current) use of anticoagulants; R42 Dizziness and giddiness; E78.00 Pure hypercholesterolemia, unspecified; R00.1 Bradycardia, unspecified; N18.30 Chronic kidney disease, stage 3 unspecified | CPT/HCPCS: 85610; 99213 ==

== ENCOUNTER 2023-02-07 10:04 | Outpatient (CLI) | payer MEDICARE, OTHER, SELFPAY ==
--- NOTE | 2023-02-07 10:13 | US_ITS ---
WS: [id number] URINARY BLADDER ULTRASOUND HISTORY: OBSTRUCTION OF URETHRAL URINARY CATHETER COMPARISON: None available. Urinary bladder is not well distended. Mild diffuse thickening of the bladder wall is probably due to partial expansion. No intraluminal filling defect. No free fluid adjacent to the urinary bladder. Bladder Prevoid: 6.9 cm x 2.4 cm x 3.1 cm. Prevoid volume: 27 ml. Bladder Postvoid: 5.3 cm x 2.2 cm x 3.6 cm. Postvoid volume: 21 ml. US/US bladder [id number] IMPRESSION: 1. Limited urinary bladder distention. No intraluminal filling defect. 2. Small amount of post residual volume after voiding.
== END 2023-02-07 10:05 | disposition home or self-care (01) ==
LOC: RAD 10:08
PROVIDERS: PCP Electrodiagnostic Medicine; Visit Provider Registered Nurse
DX: T83.098A Other mechanical complication of other urinary catheter, initial encounter (principal); Y73.1 Therapeutic (nonsurgical) and rehabilitative gastroenterology and urology devices associated with adverse incidents; R39.198 Other difficulties with micturition
CPT/HCPCS: 76857

== ENCOUNTER 2023-02-15 15:38 | Outpatient (CLI) | payer MEDICARE, OTHER, SELFPAY ==
[2023-02-15 17:16] LABS: Basophils % 0.5 %; Eosinophils # 0.3 10^3/uL (0.0-0.8); Eosinophils % 3.6 %; Hematocrit 31.1 % (37.0-47.0); Hemoglobin 9.5 g/dL (11.5-15.3); Lymphocytes # 1.9 10^3/uL (0.8-4.8); Lymphocytes % 23.2 %; Mean Corpuscular HGB Conc 30.5 g/dL (30.0-36.0); Mean Corpuscular Hemoglobin 29.1 pg (28.0-34.0); Mean Corpuscular Volume 95.1 fl (81-99); Mean Platelet Volume 11.4 fL (7.4-10.4); Monocytes # 0.7 10^3/uL (0.2-0.9); Neutrophils # 5.31 10^3/uL (1.8-7.7); Neutrophils % 64.3 %; Nucleated Red Blood Cells % 0 %; Platelet Count 220 10^3/cmm (130-400); Red Blood Count 3.27 10^6/uL (4.1-5.3); Red Cell Distribution Width 16.1 % (12.1-15.1); White Blood Count 8.3 10^3/uL (4.0-10.0)
[2023-02-15 17:48] LABS: Anion Gap 17.8 (5-19); Blood Urea Nitrogen 27 mg/dL (8-23); Calcium 9.3 mg/dL (8.5-10.5); Carbon Dioxide 26 mmol/L (22-29); Chloride 101 mmol/L (98-107); Glucose 83 mg/dL (65-115); Phosphorus 3.2 mg/dL (2.5-4.5); Potassium 4.8 mmol/L (3.5-5.1); Sodium 140 mmol/L (136-145)
[2023-02-15 17:49] LABS: Creatinine Urine, Random 24 mg/dL (28-217); Microalbumin Random Urine 4 ug/dL (0-20)
[2023-02-15 17:50] LABS: Microalbum Creatinine Ratio Ur 167 mg/dL (0-20)
== END 2023-02-15 15:39 | disposition home or self-care (01) ==
PROVIDERS: PCP Electrodiagnostic Medicine; Visit Provider Registered Nurse
DX: I12.9 Hypertensive chronic kidney disease with stage 1 through stage 4 chronic kidney disease, or unspecified chronic kidney disease (principal); N18.4 Chronic kidney disease, stage 4 (severe)
CPT/HCPCS: 36415; 80069; 82044; 85025

== ENCOUNTER 2023-03-09 11:55 | Oncology outpatient (recurring) (ONCR) | payer MEDICARE, OTHER, SELFPAY ==
[2023-03-09 12:07] VITALS: BP 165/62; PULSE 55; RESP 16; TEMP 35.9; O2SAT 99
[2023-03-09] MEDS: denosumab 60 mg SDV SUBCUT (12:27)
== END 2023-03-25 23:59 | disposition home or self-care (01) ==
LOC: ONCMED 11:55
PROVIDERS: PCP Electrodiagnostic Medicine; Visit Provider Internal Medicine Rheumatology
DX: Z79.899 Other long term (current) drug therapy (principal)
CPT/HCPCS: 96372; J0897

== ENCOUNTER 2023-03-21 16:14 | Outpatient (CLI) | payer MEDICARE, OTHER, SELFPAY ==
[2023-03-21 18:09] LABS: Basophils % 0.5 %; Eosinophils # 0.4 10^3/uL (0.0-0.8); Eosinophils % 4.9 %; Hematocrit 33.1 % (37.0-47.0); Lymphocytes % 25.7 %; Mean Corpuscular HGB Conc 30.2 g/dL (30.0-36.0); Mean Corpuscular Hemoglobin 29.1 pg (28.0-34.0); Mean Corpuscular Volume 96.2 fl (81-99); Mean Platelet Volume 10.9 fL (7.4-10.4); Monocytes # 0.7 10^3/uL (0.2-0.9); Monocytes % 8.7 %; Neutrophils # 4.75 10^3/uL (1.8-7.7); Neutrophils % 59.8 %; Nucleated Red Blood Cells % 0 %; Platelet Count 217 10^3/cmm (130-400); Red Blood Count 3.44 10^6/uL (4.1-5.3); Red Cell Distribution Width 14.6 % (12.1-15.1); White Blood Count 7.9 10^3/uL (4.0-10.0)
[2023-03-21 18:22] LABS: Albumin Level 4.1 g/dL (3.5-5.2); Anion Gap 15.3 (5-19); Blood Urea Nitrogen 28 mg/dL (8-23); Calcium 9.2 mg/dL (8.5-10.5); Carbon Dioxide 26 mmol/L (22-29); Chloride 104 mmol/L (98-107); Glucose 90 mg/dL (65-115); Phosphorus 3.6 mg/dL (2.5-4.5); Potassium 5.3 mmol/L (3.5-5.1); Sodium 140 mmol/L (136-145)
[2023-03-21 18:31] LABS: Creatinine Urine, Random 38 mg/dL (28-217); Microalbum Creatinine Ratio Ur 53 mg/dL (0-20); Microalbumin Random Urine 2 ug/dL (0-20)
[2023-03-21 18:35] LABS: Calcium 8.9 mg/dL (8.5-10.5)
[2023-03-21 18:41] LABS: Parathyroid Hormone 68.6 pg/mL (15-65)
== END 2023-03-21 16:15 | disposition home or self-care (01) ==
LOC: LAB 16:33
PROVIDERS: PCP Electrodiagnostic Medicine; Visit Provider Registered Nurse
DX: N18.4 Chronic kidney disease, stage 4 (severe) (principal)
CPT/HCPCS: 80069; 82044; 82310; 83970; 85025

== ENCOUNTER 2023-08-10 15:20 | Outpatient (CLI) | payer MEDICARE, OTHER, SELFPAY ==
--- NOTE | 2023-08-10 15:29 | XR_ITS ---
WS: [id number] Exam: XR abdomen 3V [id number] Date/Time of Exam: 08/10/2023 3:29 PM Reason For Exam: abdominal pain No bowel obstruction or pneumoperitoneum. No sign of organ enlargement. Surgical clips and sutures in the RIGHT abdomen. Bony structures intact. Aortoiliac atherosclerosis. No acute finding in the chest . IMPRESSION: 1. No acute abdominal process.
== END 2023-08-10 15:21 | disposition home or self-care (01) ==
PROVIDERS: PCP Electrodiagnostic Medicine; Visit Provider Nurse Practitioner
DX: R10.9 Unspecified abdominal pain (principal)
CPT/HCPCS: 74021

== ENCOUNTER → 2023-10-12 13:45 | Outpatient (BNVA) | payer MEDICARE, OTHER, SELFPAY | PROVIDERS: PCP Electrodiagnostic Medicine; Visit Provider Nurse Practitioner Family | DX: R00.1 Bradycardia, unspecified (principal); I44.0 Atrioventricular block, first degree | CPT/HCPCS: 93005; 99213 ==

== ENCOUNTER → 2023-10-20 14:49 | Outpatient (BNVA) | payer MEDICARE, OTHER, SELFPAY | PROVIDERS: PCP Electrodiagnostic Medicine; Visit Provider Nurse Practitioner Family | DX: R00.1 Bradycardia, unspecified (principal); I44.0 Atrioventricular block, first degree | CPT/HCPCS: 93005 ==

== ENCOUNTER 2023-12-07 16:03 | Oncology outpatient (recurring) (ONCR) | payer MEDICARE, OTHER, SELFPAY ==
[2023-12-07 16:12] VITALS: BP 125/74; PULSE 74; RESP 16; TEMP 36.8; O2SAT 96
[2023-12-07] MEDS: denosumab 60 mg SDV SUBCUT (16:20)
[2023-12-07 16:24] VITALS: BP 122/58; PULSE 74; RESP 16; TEMP 36.8; O2SAT 94
== END 2023-12-25 23:59 | disposition home or self-care (01) ==
LOC: ONCMED 16:04
PROVIDERS: PCP Electrodiagnostic Medicine; Visit Provider Internal Medicine Rheumatology
DX: M81.0 Age-related osteoporosis without current pathological fracture (principal)
CPT/HCPCS: 96372; J0897

== ENCOUNTER → 2024-02-07 15:53 | Outpatient (BNVA) | payer MEDICARE, OTHER, SELFPAY | PROVIDERS: PCP Electrodiagnostic Medicine; Visit Provider Internal Medicine | DX: N18.30 Chronic kidney disease, stage 3 unspecified (principal); E78.00 Pure hypercholesterolemia, unspecified; R00.1 Bradycardia, unspecified; R42 Dizziness and giddiness; I48.91 Unspecified atrial fibrillation; Z79.01 Long term (current) use of anticoagulants | CPT/HCPCS: 99214 ==

== ENCOUNTER 2024-02-22 15:02 | Outpatient (CLI) | payer MEDICARE, OTHER, SELFPAY | END 2024-02-22 15:03 | disposition home or self-care (01) | LOC: RAD 15:02 | PROVIDERS: PCP Electrodiagnostic Medicine; Visit Provider Internal Medicine | DX: R06.02 Shortness of breath (principal) | CPT/HCPCS: 93306 ==

== ENCOUNTER 2024-08-01 15:32 | Oncology outpatient (recurring) (ONCR) | payer MEDICARE, OTHER, SELFPAY ==
[2024-08-01] MEDS: denosumab 60 mg SDV SUBCUT (15:40)
[2024-08-01 15:44] VITALS: BP 144/74; PULSE 61; TEMP 36.5; O2SAT 97
== END 2024-08-25 23:59 | disposition home or self-care (01) ==
PROVIDERS: PCP Electrodiagnostic Medicine; Visit Provider Family Medicine
DX: Z79.899 Other long term (current) drug therapy (principal); M81.0 Age-related osteoporosis without current pathological fracture
CPT/HCPCS: 96372; J0897

== ENCOUNTER → 2024-08-20 14:13 | Outpatient (BNVA) | payer MEDICARE, OTHER, SELFPAY | PROVIDERS: PCP Electrodiagnostic Medicine; Visit Provider Internal Medicine | DX: N18.30 Chronic kidney disease, stage 3 unspecified (principal); E78.00 Pure hypercholesterolemia, unspecified; R00.1 Bradycardia, unspecified; R42 Dizziness and giddiness; I48.91 Unspecified atrial fibrillation; Z79.01 Long term (current) use of anticoagulants | CPT/HCPCS: 99214 ==

== ENCOUNTER → 2024-08-28 14:30 | Outpatient (BNVA) | payer MEDICARE, OTHER, SELFPAY | PROVIDERS: PCP Electrodiagnostic Medicine; Referring Provider Electrodiagnostic Medicine; Visit Provider Student in an Organized Health Care Education/Training Program | DX: N39.0 Urinary tract infection, site not specified (principal) | CPT/HCPCS: 81001; 87086; 87186; 99205 ==

== ENCOUNTER 2024-11-15 15:30 | Outpatient (CLI) | payer MEDICARE, OTHER, SELFPAY ==
[2024-11-15 16:24] LABS: Basophils % 0.6 %; Eosinophils # 0.6 10^3/uL (0.0-0.8); Eosinophils % 8.5 %; Lymphocytes # 1.8 10^3/uL (0.8-4.8); Lymphocytes % 24.1 %; Mean Corpuscular HGB Conc 31.4 g/dL (30-55); Mean Corpuscular Hemoglobin 29.7 pg (27-33); Mean Corpuscular Volume 94.9 fl (85-98); Mean Platelet Volume 11.2 fL (7.4-10.4); Monocytes # 0.5 10^3/uL (0.2-0.9); Monocytes % 7.2 %; Neutrophils % 59.2 %; Nucleated Red Blood Cells % 0 %; Platelet Count 168 10^3/cmm (157-399); Red Cell Distribution Width 14.6 % (12.1-15.1); White Blood Count 7.26 10^3/uL (3.29-11.43)
[2024-11-15 17:00] LABS: Albumin Level 4.4 g/dL (3.5-5.2); Anion Gap 15.7 (5-19); Blood Urea Nitrogen 32 mg/dL (8-23); Calcium 10.1 mg/dL (8.5-10.5); Carbon Dioxide 26 mmol/L (22-29); Chloride 103 mmol/L (98-107); Glucose 98 mg/dL (65-115); Phosphorus 3.4 mg/dL (2.5-4.5); Potassium 4.7 mmol/L (3.5-5.1); Sodium 140 mmol/L (136-145)
[2024-11-15 17:01] LABS: Creatinine Urine, Random 35 mg/dL (28-217); Microalbumin Random Urine 6 ug/dL (0-20)
[2024-11-15 17:01] LABS: Parathyroid Hormone 62.2 pg/mL (15-65)
[2024-11-15 17:02] LABS: Microalbum Creatinine Ratio Ur 171 mg/dL (0-20)
== END 2024-11-15 15:31 | disposition home or self-care (01) ==
LOC: LAB 15:48
PROVIDERS: PCP Electrodiagnostic Medicine; Visit Provider Registered Nurse
DX: N18.4 Chronic kidney disease, stage 4 (severe) (principal)
CPT/HCPCS: 36415; 80069; 82044; 82310; 83970; 85025

== ENCOUNTER 2025-01-30 15:24 | Oncology outpatient (recurring) (ONCR) | payer MEDICARE, OTHER, SELFPAY ==
[2025-01-30] MEDS: denosumab 60 mg SDV SUBCUT (15:36)
== END 2025-02-23 23:59 | disposition home or self-care (01) ==
PROVIDERS: PCP Electrodiagnostic Medicine; Visit Provider Family Medicine
DX: M81.0 Age-related osteoporosis without current pathological fracture (principal); Z79.899 Other long term (current) drug therapy
CPT/HCPCS: 96377; J0897

== ENCOUNTER → 2025-05-20 15:48 | Outpatient (BNVA) | payer MEDICARE, OTHER, SELFPAY | PROVIDERS: PCP Electrodiagnostic Medicine; Visit Provider Internal Medicine | DX: R06.09 Other forms of dyspnea (principal); I48.91 Unspecified atrial fibrillation; Z79.01 Long term (current) use of anticoagulants; R00.1 Bradycardia, unspecified; E78.00 Pure hypercholesterolemia, unspecified; N18.30 Chronic kidney disease, stage 3 unspecified | CPT/HCPCS: 99213 ==

== ENCOUNTER 2025-08-01 16:19 | Emergency (ER) | payer MEDICARE, OTHER, SELFPAY ==
[2025-08-01 16:25] VITALS: BP 159/68; PULSE 55; RESP 16; TEMP 36.4; O2SAT 98
--- OUTSIDE RECORDS SUMMARY | 2025-08-01 16:29 | XMS_ITS | Encounter Summary ---
Author Organization [facility] Address [address] [place] [address] Care Team Providers Care Telecommunications Specialist Name Role Phone Gabrielle Gifford MD Primary Care Provid er Encounter Details Date Type Department Care Team (Latest Contact Info) Description 08/14/2008 Outpatient Historical [facility] Cardiac Permit Technician [address] [place] [address] Lamonte Ty MD [address] [facility] [address] [place] [address] Nonspecific Abnormal Unspecified Cardiovascular Function Study Social History Tobacco Use Types Packs/Day Years Used Date Smoking Tobacco: Never Assessed Comments Unknown Sex and Gender Information Value Date Recorded Sex Assigned at Not on file Legal Sex Female 4:00 AM BUYER GRAIN Gender Identity Not on file Sexual Orientation Not on file documented as of this encounter Plan of Treatment Not on file documented as of this encounter Procedures Procedure Name Priority Date/Time Associated Diagnosis Comments PROTIME-INR Routine 08/15/2008 2:10 PM BUYER GRAIN CBC WITH DIFFERENTIAL Stat 08/15/2008 12:48 PM BUYER GRAIN PTT Stat 08/15/2008 12:48 PM BUYER GRAIN BASIC METABOLIC PANEL Stat 08/15/2008 12:48 PM BUYER GRAIN documented in this encounter Results * PROTIME-INR (08/15/2008 2:10 PM BUYER GRAIN) PROTIME 14.1 12.8 - 15.8 Secs [facility] Comment:As of 2007 not e change in normal range. INR 1.0 [facility] Comment: Expected Values for INR: DVT/PE Goal INR 2.5; range 2.0 - 3.0 Valve Replacement Tissue Goal INR 2.5; range 2.0 - 3.0 Mechanical Goal INR 3.0; range 2.5 - 3.5 POST-DC Goal INR 2.5; range 2.0 - 3.0 or Goal 3.0; range 2.5 - 3.5 Atrial Fibrillation Goal INR 2.5; range 2.0 - 3.0 Ischemic Stroke Goal INR 2.5; range 2.0 - 3.0 For additional information see Guidelines for Anticoagulation available from the pharmacy Onur Monreal D. [phone] Blood specimen (specimen) 08/15/2008 2:10 PM BUYER GRAIN 08/15/2008 2:10 PM BUYER GRAIN Narrative INTERFACE SYSTEM - 08/15/2008 2:10 PM BUYER GRAIN blood in lab us Lamonte Ty MD HEMATOLOGY ORDERABLES Final Result INTERFACE SYSTEM Refer to clinic/hospital department [facility] CLIA# [id number] [address] [place] [address] * CBC WITH DIFFERENTIAL (08/15/2008 12:48 PM BUYER GRAIN) [facility] HEMATOCRIT 37.5 36.0 - 46.0 % [facility] PLATELETS 177 140 - 440 K/ul [facility] EOSINOPHIL ABSOLUTE 0.2 0.0 - 0.7 K/ul [facility] EOSINOPHILS 3.2 0.0 - 7.0 % [facility] RBC 4.22 4.20 - 5.40 Mil/ul [facility] MCHC 32.3 30.0 - 35.0 g/dL [facility] LYMPHOCYTE ABSOLUTE 2.0 1.2 - 4.0 K/ul [facility] LYMPHOCYTES 26.1 24.0 - 44.0 % [facility] MCV 88.9 84.0 - 103.0 Fl [facility] BASOPHILS 0.3 0.0 - 1.0 % [facility] MPV 11.0 8.9 - 12.8 Fl [facility] BASOPHILS ABSOLUTE 0.0 0.0 - 0.2 K/ul [facility] HEMOGLOBIN 12.1 12.0 - 16.0 g/dL [facility] MONOCYTES 4.5 2.0 - 10.0 % [facility] RDW 14.0 11.0 - 14.5 % [facility] MONOCYTE ABSOLUTE 0.3 0.1 - 0.6 K/ul [facility] WBC 7.6 4.8 - 10.8 K/ul [facility] NEUTROPHILS 65.9 42.2 - 75.2 % [facility] MCH 28.7 27.0 - 34.0 pg [facility] NEUTROPHIL ABSOLUTE 5.0 2.0 - 8.0 K/ul [facility] Blood specimen (specimen) 08/15/2008 12:48 PM BUYER GRAIN 08/15/2008 12:54 PM BUYER GRAIN Lamonte Ty MD HEMATOLOGY ORDERABLES Final Result INTERFACE SYSTEM Refer to clinic/hospital department [facility]# [id number] [address] [place] [address] * PTT (08/15/2008 12:48 PM BUYER GRAIN) PTT 28.4 22.5 - 36.5 Secs [facility] Comment: Therapeutic Range: Hi-level PE/DVT heparin protocol 80.1 -95.0 sec Lo-level PE/DVT heparin protocol 67.1 - 80.0 sec Cardiac Heparin Protocol 67.1 - 85.0 sec Neuro Heparin Protocol 67.1 - 80.0 sec As of 12/14/2007 note change in APTT Normal Range. Blood specimen (specimen) 08/15/2008 12:48 PM BUYER GRAIN 08/15/2008 12:54 PM BUYER GRAIN Lamonte Ty MD HEMATOLOGY ORDERABLES Final Result Performing Organization Address [facility] Phone Number INTERFACE SYSTEM Refer to clinic/hospital department [facility] CLIA# [id number] [address] [place] [address] * (ABNORMAL) BASIC METABOLIC PANEL (08/15/2008 12:48 PM BUYER GRAIN) BUN 18(H) 7 - 17 mg/dL [facility] CO2 29 22 - 32 mmol/l [facility] POTASSIUM 4.0 3.5 - 5.0 mEq/L [facility] OSMOLALITY, CALCULATED 293 275 - 295 mOsm/Kg [facility] CREATININE 0.8 0.7 - 1.2 mg/dL [facility] CALCIUM 10.1 8.4 - 10.5 mg/dL [facility] GLUCOSE 87 70 - 110 mg/dL [facility] CHLORIDE 107 95 - 110 mEq/L [facility] ANION GAP 10 9 - 20 mEq/L [facility] SODIUM 142 136 - 145 mEq/L [facility] Blood specimen (specimen) 08/15/2008 12:48 PM BUYER GRAIN 08/15/2008 12:54 PM BUYER GRAIN Lamonte Ty MD CHEMISTRY ORDERABLES Final R esult Performing Organization Address [facility] Phone Number INTERFACE SYSTEM Refer to clinic/hospital department [facility] CLIA# [id number] [address] [place] [address] documented in this encounter Visit Diagnoses Diagnosis Nonspecific abnormal unspecified cardiovascular function study documented in this encounter Care Teams Telecommunications Specialist Relationship Specialty Start Date End Date Gabrielle Gifford MD PCP - General Family Practice 11/30/11 documented as of this encounter
--- OUTSIDE RECORDS SUMMARY | 2025-08-01 16:29 | XMS_ITS | Patient Health Record ---
Author Organization [facility] Address [address] [place] [address] Care Team Providers Care Combination Presser Name Role Phone Michael Kumar Primary Care Provider Unavailabl e Allergies Allergen (clinical drug ingredient) Drug/Non Drug Allergy documented on EMR Reaction Allergy Type Onset Date Status sulfamethoxazole / trimethoprim Bactrim Unknown Drug Allergy Active levofloxacin Levofloxacin Unknown Drug Allergy A ctive penicillin V Penicillin V Potassium Unknown Drug Allergy Active Reason For Referral No Information Medications Medication SIG (Take, Route, Frequency, Duration) Notes Start Date End Date Status Reglan 10 MG 1 tablet 30 minutes before starting prep Orally once 11/01/2019 Active Golytely 236 GM as directed Orally 11/01/2019 Active Lisinopril-hydroCHLO ROthiazide 20-25 MG TAKE 1 TABLET BY MOUTH IN THE MORNING FOR BLOOD PRESSURE Oral; Duration: 90 Active Vitamin D3 5669667 UNIT/GM as directed Active Warfarin Sodium 3 MG TAKE 1 TABLET BY MOUTH ONCE DAILY DIRECTED Oral; Duration: 30 Active Metoprolol Succinate ER 100 MG TAKE 1 TABLET BY MOUTH ONCE DAILY FOR BLOOD PRESSURE Oral; Duration: 90 Active Dilt-XR 180 MG TAKE 1 CAPSULE BY MOUTH ONCE DAILY Oral; Duration: 90 Active Colon Formula 166.67-500 MG as directed Orally *Reorder from [employer] for eRx and Interaction Alerts* Active Furosemide 20 MG TAKE 1 TABLET BY MOUTH ONCE DAILY IN THE MORNING FOR SWELLING Oral; Duration: 30 Active Atorvastatin Calcium 20 MG TAKE 1 TABLET BY MOUTH ONCE DAILY FOR CHOLESTEROL Oral; Duration: 90 Active Immunizations Vaccine Route Administration Date Status Comme nts Flu vaccine no Preserv 3 and > Unknown 07/02/2019 Administered Immunization Giv en by from source eCW:: Pneumococcal conjugate PCV 13 Unknown 07/02/2019 Administered Immunization Giv en by from source eCW:: Problems Problem Type SNOMED Code ICD Code Onset Dates Problem Status W/U Status Risk Notes Problem Neurogenic bladder (168475749) Neurogenic bladder (N31.9) Active confirmed Problem Iron deficiency anemia due to chronic blood loss (693462700) Iron deficiency anemia due to chronic blood loss (D50.0) Active confirmed Plan Of Treatment Pending Test Test Name Order Date zzDIAGNOSTIC COLONOSCOPY--12250 11/01/19 zzEGD, UPPER GI ENDO DIAG 11/01/2019 Insurance Providers Payer Name Payer Address Payer Phone Subscriber Number Group Number Insured Name Patient Relationship to Insured Coverage Start Date Coverage End Date [place] [address] [place]ATJA LEVI [place] [id number] [phone] [id number] aMdai Zepeda Self - patient is the insured [place] [address] [id number] Madai Zepeda Self - patient is the insured Medical (General) History Medical History History ICD Code measles mumps chicken pox pneumonia anemia bladder infections migraine headaches bronchitis Surgical History Surgery Date(Month/Year) colon polyps bowel blockage appendectomy
--- OUTSIDE RECORDS SUMMARY | 2025-08-01 16:29 | XMS_ITS | Encounter Summary ---
Author Organization [email or web address] [employer] Address [address] [facility] [address] [place] [address] Phone Care Team Providers Care Double End Sewer Name Role Phone Michael Kumar DO Primary Care Provider [phone] Encounter Details Date Type Department Care Team (Late Contact Info) Description 02/15/2020 Orders Only [facility] [employer] [email or web address] [address] [facility] [address] [place] [address] Decreased renal function Social History Tobacco Use Types Packs/Day Years Used Date Smoking Tobacco: Never Assessed Comments Unknown Sex and Gender Information Value Date Recorded Sex Assigned at Not on file Legal Sex Female 3:29 PM EDT Gender Identity Not on file Sexual Orientation Not on file documented as of this encounter Plan of Treatment Upcoming Encounters Date Type Department Care Team (Late Contact Info) Description 08/20/2025 2:30 PM HERBICIDE SERVICE SALES REPRESENTATIVE Office Visit [facility] [employer] [email or web address] [address] [place] [address] Analisa Ortega NP [address] [facility] [address] [place] [address] documented as of this encounter Visit Diagnoses Diagnosis Decreased renal function documented in this encounter Care Teams Double End Sewer Relationship Specialty Start Date End Date Michael Kumar DO [address] [place] [address] PCP - General Family Medicine 05/06/20 documented as of this encounter
--- OUTSIDE RECORDS SUMMARY | 2025-08-01 16:29 | XMS_ITS | Patient Health Record ---
Author Organization [facility] Address [address] [place] [address] Care Team Providers Care Acid Tank Cleaner Name Role Phone Kumar Michael BRITO Primary Care Provider Unavail able Segun Mancuso Unavailable [phone] Allergies Allergen (clinical drug ingredient) Drug/Non Drug Allergy documented on EMR Reaction Allergy Type Onset Date Status sulfamethoxazole / trimethoprim Bactrim Unknown Drug Allergy Active levofloxacin Levofloxacin Unknown Drug Allergy A ctive penicillin V Penicillin V Potassium Unknown Drug Allergy Active Reason For Referral No Information Medications Medication SIG (Take, Route, Frequency, Duration) Notes Start Date End Date Status Metoprolol Succinate ER 100 MG Tablet Extended Release 24 Hour TAKE 1 TABLET BY MOUTH ONCE DAILY FOR BLOOD PRESSURE Oral; Duration: 90 Active Warfarin Sodium 3 MG Tablet TAKE 1 TABLE T BY MOUTH ONCE DAILY DIRECTED Oral; Duration: 30 Active Furosemide 20 MG Tablet TAKE 1 TABLET BY MOUTH ONCE DAILY IN THE MORNING FOR SWELLING Oral; Duration: 30 Active Dilt-XR 180 MG Capsule Extended Release 24 Hour TAKE 1 CAPSULE BY MOUTH ONCE DAILY Oral; Duration: 90 Active Lisinopril-hydroCHLOROthiaz aarti 20-25 MG Tablet TAKE 1 TABLET BY MOUTH IN THE MORNING FOR BLOOD PRESSURE Oral; Duration: 90 Active Reglan 10 MG Tablet 1 tablet 30 minutes before starting prep Orally once 11/01/2019 Active Golytely 236 GM Solution Reconstituted as directed Orally 11/01/2019 Active Colon Formula 166.67-500 MG Capsule as directed Orally Active Vitamin D3 9633705 UNIT/GM Liquid as directed Active Atorvastatin Calcium 20 MG Tablet TAKE 1 TABLET BY MOUTH ONCE DAILY FOR CHOLESTEROL Oral; Duration: 90 Active Immunizations Vaccine Route Administration Date Status Comme nts Flu vaccine no Preserv 3 and > Unknown 07/02/2019 Admin istered Pneumococcal conjugate PCV 13 Unknown 07/02/2019 Admini stered Social History Tobacco Use: Social History Observation Description Date Details (start date - stop date) Never Smoker NA - NA Social History Depression Screening Social Info Question Answer Notes PHQ-9 Little interest or pleasure in doing thin gs Not at all Feeling down, depressed, or hopeless Not at all Trouble falling or staying asleep, or sleeping t oo much Not at all Feeling tired or having little energy Not at all Poor appetite or overeating Not at all Feeling bad about yourself, or that you are a failure, or have let yourself or your family down Not at all Trouble concentrating on thi ngs, such as reading the newspaper or watching television Not at all Moving or speaking so slowly that other people could have noticed. Or the opposite ? being so fidgety or restless that you have been moving around a lot more than usual Not at all Thoughts that you would be b skip off , or of hurting yourself in some way Not at all Total Score 0 Drugs/Alcohol: Social Info Question Answer Notes Alcohol Screen (Audit-C) Did you have a drink containing alcohol in the past year? No Points 0 Interpretation Negative Tobacco Use: Social Info Question Answer Notes xTobacco Use/Smoking Are you a nonsmoker Additional Details Category Social Info Options Details Miscellaneous: Marital status: Occupation: Retired Problems Problem Type SNOMED Code ICD Code Onset Dates Problem Status W/U Status Risk Notes Problem Iron deficiency anemia due to chronic blood loss (779664284) Iron deficiency anemia due to chronic blood loss (D50.0) Active confirmed Problem Neurogenic bladder (531418757) Neurogenic bladder (N31.9) Active confirmed Plan Of Treatment No Information Insurance Providers Payer Name Payer Address Payer Phone Subscriber Number Group Number Insured Name Patient Relationship to Insured Coverage Start Date Coverage End Date [place] [address] [place] [phone] [id number] Madai Zepeda Self - patient is the insured [address] [place] [phone] [id number] Madai Zepeda Self - patient is the insured Medical (General) History Medical History History ICD Code measles mumps chicken pox pneumonia anemia bladder infections migraine headaches bronchitis Surgical History Surgery Date(Month/Year) colon polyps bowel blockage appendectomy
--- OUTSIDE RECORDS SUMMARY | 2025-08-01 16:29 | XMS_ITS | Encounter Summary ---
Author Organization [facility] Address [address] [place] [address] Care Team Providers Care Information Management Officer Name Role Phone Gabrielle Gifford MD Primary Care Provid er Encounter Details Date Type Department Care Team (Latest Contact Info) Description 07/16/2008 Outpatient Historical [facility] Cardi[facility] Services [address] [place] [address] Lamonte Ty MD [address] [place] [address] Atrial Fibrillation (CMS/HCC) Social History Tobacco Use Types Packs/Day Years Used Date Smoking Tobacco: Never Assessed Comments Unknown Sex and Gender Information Value Date Recorded Sex Assigned at Not on file Legal Sex Female 4:00 AM AUTOMATION CONTROL INTEGRATOR Gender Identity Not on file Sexual Orientation Not on file documented as of this encounter Plan of Treatment Not on file documented as of this encounter Visit Diagnoses Diagnosis Atrial fibrillation (CMS/HCC) Atrial fibrillation documented in this encounter Care Teams Information Management Officer Relationship Specialty Start Date End Date Gabreille Gifford MD PCP - General Family Practice 11/30/11 documented as of this encounter
--- OUTSIDE RECORDS SUMMARY | 2025-08-01 16:29 | XMS_ITS | Encounter Summary ---
Author Organization [facility] Address [address] [place] [address] Care Team Providers Care Pole Peeling Machine Operator Name Role Phone Gabrielle Gifford MD Primary Care Provid er Encounter Details Date Type Department Care Team (Latest Contact Info) Description 12/10/1999 Outpatient Historical [facility] [address] [facility] [address] [place] [address] Edda Vines MD NO ADDRESS ON FILE Other screening mammogram (Primary Dx) Social History Tobacco Use Types Packs/Day Years Used Date Smoking Tobacco: Never Assessed Comments Unknown Sex and Gender Information Value Date Recorded Sex Assigned at Not on file Legal Sex Female 4:00 AM LOG CLERK Gender Identity Not on file Sexual Orientation Not on file documented as of this encounter Plan of Treatment Not on file documented as of this encounter Visit Diagnoses Diagnosis Other screening mammogram- Primary documented in this encounter Care Teams Pole Peeling Machine Operator Relationship Specialty Start Date End Date Gabrielle Gifford MD PCP - General Family Practice 11/30/11 documented as of this encounter
--- OUTSIDE RECORDS SUMMARY | 2025-08-01 16:29 | XMS_ITS | Clinical Summary ---
Author Organization [facility] Address [address] [place] [address] Phone Care Team Providers Care Client Server Developer Name Role Phone Gabrielle Gifford MD Primary Care Provid er Allergies Active Allergy Reactions Criticality Noted Date Comments Penicillin G Hives,Swelling High 07/01/2011 Medications metoprolol tartrate (LOPRESSOR) 50 mg Oral tablet Take 50 mg by mouth 2 times daily. Active SIMVASTATIN ORAL Take by mouth daily at bedtime. Active RALOXIFENE HCL (EVISTA ORAL) Take by mouth. Takes it three times a week Active atorvastatin (LIPITOR) 20 mg Oral tablet Take 20 mg by mouth Daily LATE. Active hydrochlorothia zide 25 mg Oral tablet Take 25 mg by mouth daily. Active HYDROcodone-tanna taminophen (NORCO) 5-325 mg Oral tablet Take 1 Tab by mouth every 4 hours as needed for Pain, Moderate (For Pain Scale 4-6). 10 Tab 0 12/03/2011 Active Active Problems No known active problems Resolved Problems Problem Noted Date Diagnosed Date Resolved Date Lipoma of other skin and subcutaneous tissue 1 12/16/2011 Family History Medical History Relation Name Comments Cancer Other Heart Disease Other Hypertension Other Relation Name Status Comments Other Social History Tobacco Use Types Packs/Day Years Used Date Smoking Tobacco: Never Alcohol Use Standard Drinks/Week Comments No 0 (1 standard drink = 0.6 oz pur e alcohol) Comments Unknown Sex and Gender Information Value Date Recorded Sex Assigned at Not on file Legal Sex Female 4:00 AM RECRUITING MANAGER Gender Identity Not on file Sexual Orientation Not on file Occupation Industry Job Start Date Job End Date Not on file Not on file Not on file Not on file Last Filed Vital Signs Vital Sign Reading Time Taken Comments Blood Pressure 167/65 01/27/2012 9:46 AM CDT Pulse 60 01/27/2012 9:46 AM CDT Temperature 36.6 C (97.8 F) 12/03/2011 4:29 PM RECRUITING MANAGER Respiratory Rate 16 12/03/2011 4:56 PM RECRUITING MANAGER Oxygen Saturation 98% 12/03/2011 4:56 PM RECRUITING MANAGER Inhaled Oxygen Concentration - - Weight 77.1 kg (170 lb) 01/27/2012 9:46 AM CDT Height 167.6 cm (5' 6 ) 01/27/2012 9:46 AM CDT Body Mass Index 27.44 01/27/2012 9:46 AM CDT Plan of Treatment Health Maintenance Due Date Last Done Comments DTAP/TDAP/TD VACCINES (1 - Tdap) 02[birth year]08/1954 PNEUMOCOCCAL VACCINE 50+ YEARS (1 of 1 - PCV) 02/08/19 86 ZOSTER VACCINE (1 of 2) 02/08/1986 OSTEOPOROSIS SCREENING 02/08/2001 RSV VACCINE (60+ or ) (1 - 1-dose 75+ series) 02/08/2011 INFLUENZA VACCINE (#1) 2025 Insurance MEDICARE PART A AND B [employer] Advance Directives For more information, please contact: [phone] * Full Code (Latest Code Status on File) Date Activated Date Inactivated Comments 12/03/2011 3:39 PM 12/04/2011 2:01 AM * Full Code Date Activated Date Inactivated Comments 12/03/2011 12:48 PM 12/03/2011 3:39 PM Care Teams Client Server Developer Relationship Specialty Start Date End Date Gabrielle Gifford MD PCP - General Family Practice 11/30/11
--- OUTSIDE RECORDS SUMMARY | 2025-08-01 16:29 | XMS_ITS | Clinical Summary ---
Author Organization [facility], [facility] Address [address] [place] [address] Phone Care Team Providers Care Ultrasonic Cleaner Name Role Phone Michael Kumar Primary Care Provider [phone] Allergies Active Allergy Reactions Criticality Noted Date Comments Sulfamethoxazole-Trimethoprim 2019 Levofloxacin 05/14/2020 Penicillin G Hives,Swelling 07/01/2011 Sulfa Antibiotics 02/22/2023 Medications atorvastatin (LIPITOR) 20 MG tablet Take 20 mg by mouth 1 (one) time each day Active furosemide (LASIX) 20 MG tablet Take 40 mg by mouth 1 (one) time each day Active cholecalciferol (VITAMIN D-3) 50 MCG (1999 UT) tablet Take 2,000 Units by mouth 1 (one) time each day Active Denosumab (Prolia) 60 MG/ML solution prefilled syringe Inject under the skin Every 6 months Active AMLODIPINE BENZOATE PO Take 5 mg by mouth 2 (two) times a day Active bethanechol (URECHOLINE) 10 MG tablet Take 10 mg by mouth in the morning and 10 mg in the evening and 10 mg before bedtime. Active pantoprazole (PROTONIX) 40 MG EC tablet Take 40 mg by mouth 1 (one) time each day before breakfast Do not crush, chew, or split. Active amiodarone (PACERONE) 200 MG tablet Take 100 mg by mouth 1 (one) time each day Active metoprolol succinate XL (Toprol XL) 50 MG 24 hr tablet Take 1 tablet (50 mg total) by mouth in the morning and 1 tablet (50 mg total) in the evening. Do not crush or chew.. 60 tablet 11 3 Active Eliquis 2.5 MG tablet Take 2.5 mg by mouth 2 (two) times a day 3 Active Ferrex 150 150 MG capsule Take 150 mg by mouth 1 (one) time each day 3 Active levothyroxine (SYNTHROID, LEVOTHROID) 25 MCG tablet Take 25 mcg by mouth 1 (one) time each day Active spironolactone (ALDACTONE) 25 MG tablet Take 25 mg by mouth 1 (one) time each day Active methenamine (HIPREX) 1 g tabletIndicatio ns:Chronic urinary tract infection Take 0.5 tablets (0.5 g total) by mouth every other day 90 tablet 5 03/18/20 26 Active Cyanocobalamin (VITAMIN B 12 PO) Take 1 tablet by mouth 1 (one) time each day Active Active Problems Problem Noted Date Diagnosed Date Acquired thrombophilia 07/27/2023 Bilateral lower limb edema 04/05/2023 Chronic kidney disease stage 4 04/05/2023 Hyperlipidemia 04/05/2023 Hyperparathyroidism due to renal insufficiency 0 04/05/2023 Acute nontraumatic kidney injury 01/25/2023 Chronic atrial fibrillation 01/25/2023 Pulmonary hypertension 01/25/2023 Essential (primary) hypertension 05/12/2020 Encounters Date Type Department Care Team Description 06/25/2025 Patient Outreach [facility] [address] [facility] [address] [place] [address] Eliana Reed from Last 3 Months Family History Medical History Relation Comments Heart disease Brother Heart disease Child Cancer Father Heart disease Father Hypertension Father Heart disease Mother Cancer Sister Diabetes Neg Hx Relation Status Comments Brother Child Father Mother Sister Social History Tobacco Use Types Packs/Day Years Used Date Smoking Tobacco: Never Smokeless Tobacco: Never Tobacco Cessation:Counseling Given: Not Answered Alcohol Use Standard Drinks/Week Comments Never 0 (1 standard drink = 0.6 oz pur e alcohol) AUDIT-C Answer Date Recorded Q1: How often do you have a drink containing alc ohol? Never 04/23/2020 Average Number of Drinks Not on file 020 Frequency of Binge Drinking Not on file 03/27 Comments Unknown Sex and Gender Information Value Date Recorded Sex Assigned at Not on file Legal Sex Female 3:29 PM EDT Gender Identity Not on file Sexual Orientation Not on file Last Filed Vital Signs Vital Sign Reading Time Taken Comments Blood Pressure 134/50 04/02/2025 2:23 PM CDT Pulse 58 04/02/2025 2:23 PM CDT Temperature 36.1 C (96.9 F) 09/03/2020 10:24 AM BAY STOCKER Respiratory Rate - - Oxygen Saturation 97% 04/02/2025 2:23 PM CDT Inhaled Oxygen Concentration - - Weight 70.3 kg (155 lb) 11/23/2024 4:09 PM BAY STOCKER Height 167.6 cm (5' 6 ) 11/23/2024 4:09 PM BAY STOCKER Body Mass Index 25.02 11/23/2024 4:09 PM BAY STOCKER Plan of Treatment Upcoming Encounters Date Type Department Care Team (Late st Contact Info) Description 08/20/2025 2:30 PM BAY STOCKER Office Visit [facility], [facility] [address] [place] [address] Analisa Ortega NP [address] [facility] [address] [place] [address] Health Maintenance Due Date Last Done Comments Pneumococcal Vaccine: 50+ Years (2 of 2 - PPSV23, PCV20, or PCV21) 08/27/2019 07/02/2019 Influenza Vaccine (#1) 2025 4, 08/03/2023, 07/26/2017 Pneumococcal Vaccine: Peds (0 to 5 Years) and At-Risk Patients (6 to 49 Years) Discontinued 07/02/2019 Hepatitis B Vaccine Aged Out No longe r eligible based on patient's age to complete this topic Insurance [id number] [place] [id number] Medicare [facility] Care Teams Ultrasonic Cleaner Relationship Specialty Start Date End Date Michael Kumar DO [address] [place] [address] PCP - General Family Medicine 05/06/20
--- OUTSIDE RECORDS SUMMARY | 2025-08-01 16:29 | XMS_ITS | Encounter Summary ---
Author Organization [facility] Address [address] [place] [address] Care Team Providers Care Internship Coordinator Name Role Phone Gabrielle Gifford MD Primary Care Provid er Encounter Details Date Type Department Care Team (Late st Contact Info) Description 11/06/1999 Outpatient Historical [facility] Social History Tobacco Use Types Packs/Day Years Used Date Smoking Tobacco: Never Assessed Comments Unknown Sex and Gender Information Value Date Recorded Sex Assigned at Not on file Legal Sex Female 4:00 AM NAPPER FIXER Gender Identity Not on file Sexual Orientation Not on file documented as of this encounter Plan of Treatment Not on file documented as of this encounter Visit Diagnoses Not on filedocumented in this encounter Care Teams Internship Coordinator Relationship Specialty Start Date End Date Gabrielle Gifford MD PCP - General Family Practice 11/30/11 documented as of this encounter
--- NOTE | 2025-08-01 16:32 | W.ED.FALL ---
HPI - Fall General: Chief Complaint: Fall Stated Complaint: fall - posterior rib pain Time Seen by Provider: 08/01/25 16:21 Source: patient Mode of arrival: EMS Limitations: no limitations History of Present Illness: Patient is a nice 89-year-old female presents to ED today following a fall. Patient states at baseline she does not have very good balance and will sometimes fall because of this. Patient states she was in her kitchen taking out the trash when she lost her balance and fell backwards. She states she struck the back of her head against the wall. No LOC. She does take anticoagulation-apixaban. Patient states she then fell to the ground on her left side and is complaining of left posteriolateral rib pain, left shoulder pain, and left hip pain. There was no prolonged down time. MD complaint: fall Onset (ago): hour(s) Fall from: standing Fall witnessed: no Place fall occurred: home Loss of consciousness: None Prolonged down time: no Symptoms prior to fall: none Location of injury: head and chest Location of injury - extremities: Left: shoulder Associated symptoms-after fall: Reports chest pain (L posterior rib pain); Denies abdominal pain, headache(s), hematuria, lightheadedness or neck pain Related Data Home Medications ?Medication ?Instructions ?Recorded ?Confirmed cholecalciferol (vitamin D3) 25 50 mcg PO DAILY 06/23/20 05/20/25 mcg (1,000 unit) capsule (Vitamin D3) atorvastatin 20 mg tablet 20 mg PO BEDTIME 06/08/22 05/20/25 bethanechol chloride 10 mg tablet 10 mg PO TID 10/13/22 05/20/25 pantoprazole 40 mg tablet,delayed 40 mg PO DAILY 10/13/22 05/20/25 release polysaccharide iron complex 150 mg 150 mg PO DAILY 10/13/22 05/20/25 iron capsule (Ferrex) furosemide 40 mg tablet 40 mg PO 08/10/23 05/20/25 spironolactone 25 mg tablet 25 mg PO DAILY 10/12/23 05/20/25 levothyroxine 25 mcg tablet 25 mcg PO DAILY 02/07/24 05/20/25 methenamine hippurate 1 gram tablet 0.5 g PO DIRECTED 02/07/24 05/20/25 Previous Rx's ?Medication ?Instructions ?Recorded amiodarone 100 mg tablet 100 mg PO DAILY #90 tabs 10/12/23 metoprolol succinate 100 mg 50 mg (1/2 x 100 mg) PO BID #180 10/21/23 tablet,extended release 24 hr tabs apixaban 2.5 mg tablet (Eliquis) 2.5 mg PO BID #180 tabs 12/04/24 amlodipine 5 mg tablet See Rx Instructions .Route 06/19/25 .COMPLEX #180 tabs hydrocodone 5 mg-acetaminophen 325 1 tab PO Q6H PRN pain #14 tabs 08/01/25 mg tablet Allergies Allergy/AdvReac Type Severity Reaction Status Date / Time levofloxacin Allergy Unknown Unknown Verified 05/20/25 16:02 sulfamethoxazole (From Allergy Unknown Unknown Verified 05/20/25 16:02 Bactrim) trimethoprim (From Bactrim) Allergy Unknown Unknown Verified 05/20/25 16:02 Penicillins Allergy Unknown Verified 05/20/25 16:02 Review of Systems Eyes: Denies: change in vision, blurry vision, photophobia, eye discharge, floaters or seeing flashes ENMT: Denies: throat pain, odynophagia, ear or mastoid pain, ear discharge, nasal discharge, epistaxis or sinus pain Card: Reports: chest pain (L posterior rib pain); Denies: palpitations, lightheadedness, syncope or pre-syncope Resp: Denies: dyspnea or pain on inspiration GI: Denies: abdominal pain : Denies: flank pain or hematuria Musc: Reports: joint pain (L hip, L shoulder); Denies: neck pain, back pain or extremity pain Neuro: Denies: headache(s), numbness in extremities, weakness in extremities, sensory changes or dizziness PFSH ED PFSH: Medical History Atrial fibrillation Warfarin anticoagulation Lumbar vertebral fracture Melena High risk medication use CKD (chronic kidney disease) stage 3, GFR 30-59 ml/min Osteoporosis Infectious hepatitis 1968 Heart disease Hypercholesteremia Surgical History S/P appendectomy S/P colonoscopy with polypectomy History of resection of large bowel S/P cataract extraction Family History Father Cancer Myocardial infarction CAD (coronary artery disease) Brother Cancer Myocardial infarction Stroke CAD (coronary artery disease) Sister Cancer Myocardial infarction Stroke Hypertension CAD (coronary artery disease) Mother Myocardial infarction CAD (coronary artery disease) Daughter Stroke Other Anesthesia complication Family history of premature coronary artery disease Hyperlipidemia Rheumatoid arthritis Social History Smoking and tobacco/nicotine status: never used tobacco/nicotine Alcohol intake: never Substance/Drug Use: never Caregiver/support person: Yes Household members: family Housing: House Physical Exam Const: COMMON NORMALS: no acute distress, average body habitus, patient oriented x3, no limitations, healthy appearing, alert and well nourished GENERAL APPEARANCE: cooperative ORIENTATION/CONSCIOUSNESS: Yes awake, Yes oriented to person, Yes oriented to place and Yes oriented to time HENMT: COMMON NORMALS: normocephalic, atraumatic and TM's normal bilaterally HEAD & SCALP: normal to inspection, normocephalic and atraumatic; no Roberto's sign, no hematoma and no raccoon eyes FACE & SINUS: normal facial exam TYMPANIC MEMBRANE: TM's normal bilaterally MOUTH: other (no intraoral injuries noted) Eye: COMMON NORMALS: Equal, round and reactive pupils present and EOMs intact bilaterally GENERAL EYE: appearance normal, both eyes and all related structures and normal light reflex PUPIL: Yes Equal, round and reactive pupils present DIRECT OPHTHALMOSCOPY: Yes normal light reflex Neck/C-Spine: COMMON NORMALS: full ROM GENERAL: Yes normal visual inspection CERVICAL SPINE: Yes cervical ROM normal, No pain with cervical ROM, No Cervical spine tenderness, No step off deformity and No Paracervical muscle tenderness Chest: COMMONS NORMALS: normal inspection of the chest OTHER: TTP L posteriolateral rib pain; no obvious crepitus; lung sounds normal Resp: COMMON NORMALS: normal respiratory effort and clear to auscultation bilaterally AUSCULTATION: clear to auscultation bilaterally Cardio: COMMON NORMALS: regular rate and regular rhythm RATE: regular rate RHYTHM: regular rhythm GI: COMMON NORMALS: Normal to inspection, nondistended, normoactive bowel sounds present, Soft to palpation, non-tender, No hepatosplenomegaly present and no masses INSPECTION: Yes normal to inspection and No abdominal wall ecchymosis AUSCULTATION: Yes normoactive bowel sounds PALPATION: Yes Soft to palpation and Yes No hepatosplenomegaly present Back/Pelvis: COMMON NORMALS: thoracic and lumbar spine normal to inspection, no thoracic nor lumbar tenderness and thoraco-lumbar ROM normal Extremity: COMMON NORMALS: capillary refill normal GENERAL: Yes normal exam except as noted LEFT UPPER EXTREMITY: Yes shoulder joint (TTP L posterior shoulder but she questions if this is just L rib pain) Left shoulder joint: Yes neurovascular exam (normal) LEFT LOWER EXTREMITY: Yes hip joint (TTP posteriolateral L hip) Left hip: Yes neurovascular exam (normal) Neuro: DINAH COMA SCALE: document GCS findings [place] coma scale eye opening: Spontaneous [place] coma scale verbal response: Orientated [place] coma scale motor response: Obey commands [place] coma scale total score: 15 COMMON NORMALS: patient oriented x3, CN's II-XII intact bilaterally, moves all extremities, no focal motor deficits and no sensory deficits noted SENSORIUM/ORIENTATION: Yes alert, Yes oriented to person, Yes oriented to place and Yes oriented to time SPEECH: speech normal GAIT: Yes Normal gait present Skin: COMMON NORMALS: no rashes or lesions noted GENERAL SKIN EXAM: no rashes or lesions noted TRAUMA: no lacerations or abrasions Course Vital Signs: Vital signs: Vital Signs Temperature 97.6 F 08/01/25 16:25 Pulse Rate 55 L 08/01/25 16:25 Respiratory Rate 16 08/01/25 16:25 Blood Pressure 159/68 08/01/25 16:25 Pulse Oximetry 100 08/01/25 17:33 Oxygen Delivery Me thod Room Air 08/01/25 17:33 MDM - Fall Medical Decision Making CT/XR imaging obtained based on her complaints. These are unremarkable apart from a left lateral rib fracture. Patient is directly tender here. No other injuries were found. Vital signs are stable. Blood work overall is nonactionable. She does have chronic/stable anemia. She has baseline elevations to her BUN/Cr. UA is clear. She was able to ambulate here in the emergency department. She will be going home with family. Will treat rib fracture with pain medication. Return to ED precautions discussed. Differential Diagnosis Likely dislocation of shoulder region and concussion without loss of consciousness Medical Records I reviewed the patient's medical records. Lab Data I reviewed the patient's lab results. 08/01/25 16:58 08/01/25 16:58 Radiology Impressions Hip/Pelvis X-Ray 08/01/25 16:41 IMPRESSION: No acute findings. Ribs X-Ray 08/01/25 16:41 IMPRESSION: Slight cortical irregularity at the lateral left 10th rib may represent fracture, correlate with point tenderness. Shoulder X-Ray 08/01/25 16:41 IMPRESSION: 1. No acute fracture or dislocation. 2. Evidence of rotator cuff calcific tendinitis. Cervical Spine CT 08/01/25 16:50 IMPRESSION: No acute fracture or traumatic listhesis. Head CT 08/01/25 16:50 IMPRESSION: 1. No acute intracranial findings. 2. 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 Laboratory Results WBC 7.80 10^3/uL (3.29-11.43) 08/01/25 16:58 RBC 3.51 10^6/uL (3.85-5.65) L 08/01/25 16:58 Hgb 10.30 g/dL (11.27-16.99) L 08/01/25 16:58 Hct 32.8 % (36-47) L 08/01/25 16:58 MCV 93.4 fl (85-98) 08/01/25 16:58 MCH 29.3 pg (27-33) 08/01/25 16:58 MCHC 31.4 g/dL (30-55) 08/01/25 16:58 RDW 13.7 % (12.1-15.1) 08/01/25 16:58 Plt Count 144 10^3/cmm (157-399) L 08/01/25 16:58 MPV 11.4 fL (7.4-10.4) H 08/01/25 16:58 Neut % (Auto) 66.7 % 08/01/25 16:58 Lymph % (Auto) 19.0 % 08/01/25 16:58 [facility] % (Auto) 7.1 % 08/01/25 16:58 Eos % (Auto) 6.3 % 08/01/25 16:58 Baso % (Auto) 0.4 % 08/01/25 16:58 Neut # (Auto) 5.21 10^3/uL (1.8-7.7) 08/01/25 16:58 Lymph # (Auto) 1.5 10^3/uL (0.8-4.8) 08/01/25 16:58 [facility] # (Auto) 0.6 10^3/uL (0.2-0.9) 08/01/25 16:58 Eos # (Auto) 0.5 10^3/uL (0.0-0.8) 08/01/25 16:58 Baso # (Auto) 0.0 10^3/uL (0.0-0.1) 08/01/25 16:58 Nucleated RBC % (auto) 0 % 08/01/25 16:58 Nucleated RBCs # 0.0 /100WBC 08/01/25 16:58 Sodium 137 mmol/L (136-145) 08/01/25 16:58 Potassium 4.6 mmol/L (3.5-5.1) 08/01/25 16:58 Chloride 101 mmol/L (98-107) 08/01/25 16:58 Carbon Dioxide 21 mmol/L (22-29) L 08/01/25 16:58 Anion Gap 19.6 (5-19) H 08/01/25 16:58 BUN 33 mg/dL (8-23) H 08/01/25 16:58 Creatinine 1.9 mg/dL (0.5-0.9) H 08/01/25 16:58 GFR Calculation Not Reportable 08/01/25 16:58 Glucose 95 mg/dL (65-115) 08/01/25 16:58 Calculated Osmolality 291 mOsm/kg (285-295) 08/01/25 16:58 Calcium 9.8 mg/dL (8.5-10.5) 08/01/25 16:58 Total Bilirubin 0.5 mg/dL (0.15-1.2) 08/01/25 16:58 AST 27 U/L (0-32) 08/01/25 16:58 ALT 21 U/L (0-33) 08/01/25 16:58 Alkaline Phosphatase 88 U/L (35-105) 08/01/25 16:58 Total Protein 7.3 g/dL (6.6-8.7) 08/01/25 16:58 Albumin 3.9 g/dL (3.5-5.2) 08/01/25 16:58 Globulin 3.4 g/dL (1.3-4.6) 08/01/25 16:58 Urine Color Yellow (Yellow) 08/01/25 17:30 Urine Appearance Clear (CLEAR) 08/01/25 17:30 Urine pH 6.5 (5-7) 08/01/25 17:30 Ur Specific [place] 1.011 (1.005-1.030) 08/01/25 17:30 Urine Protein Trace (Negative) A 08/01/25 17:30 Urine Glucose (UA) Negative (Normal) 08/01/25 17:30 Urine Ketones Negative (Negative) 08/01/25 17:30 Urine Blood Negative (Negative) 08/01/25 17:30 Urine Nitrate Negative (Negative) 08/01/25 17:30 Urine Bilirubin Negative (Negative) 08/01/25 17:30 Urine Urobilinogen 0.2 mg/dL (Negative) 08/01/25 17:30 Ur Leukocyte Esterase Negative (Negative) 08/01/25 17:30 Urine RBC 0-2 /hpf (0-2) 08/01/25 17:30 Urine WBC 0-5 /hpf (0-5) 08/01/25 17:30 Ur Squamous Epith Cells 0-5 /hpf (0-5) 08/01/25 17:30 Amorphous Sediment Not Reportable 08/01/25 17:30 Urine Bacteria None seen /hpf (NONE) 08/01/25 17:30 Hyaline Casts 7.83 /lpf 08/01/25 17:30 All radiology interpretation(s) finalized by discharge Discharge Plan Discharge Patient Disposition: Home Clinical Impression: Left rib fracture Qualifiers: Encounter type: initial encounter Rib fracture type: single rib Fracture type: closed Qualified Code(s): S22.32XA - Fracture of one rib, left side, initial encounter for closed fracture Fall Qualifiers: Encounter type: initial encounter Qualified Code(s): W19.XXXA - Unspecified fall, initial encounter Condition: Stable Prescriptions: New hydrocodone-acetaminophen 5-325 mg tablet 1 tab PO Q6H PRN (Reason: pain) Qty: 14 0RF No Action bethanechol chloride 10 mg tablet 10 mg PO TID pantoprazole 40 mg tablet,delayed release (DR/EC) 40 mg PO DAILY polysaccharide iron complex [Ferrex 150] 150 mg iron capsule 150 mg PO DAILY levothyroxine 25 mcg tablet 25 mcg PO DAILY methenamine hippurate 1 gram tablet 0.5 g PO DIRECTED Rx Instructions: 1/2 tab every other day furosemide 40 mg tablet 40 mg PO spironolactone 25 mg tablet 25 mg PO DAILY amiodarone 100 mg tablet 100 mg PO DAILY Qty: 90 3RF metoprolol succinate 100 mg tablet extended release 24 hr 50 mg PO BID Qty: 180 2RF Eliquis 2.5 mg tablet 2.5 mg PO BID Qty: 180 3RF amlodipine 5 mg tablet See Rx Instructions .ROUTE .COMPLEX Qty: 180 3RF Dose Instruction: Take 1 tablet by mouth twice daily Rx Instructions: Take 1 tablet by mouth twice daily cholecalciferol (vitamin D3) [Vitamin D3] 25 mcg (1,000 unit) Capsule 50 mcg PO DAILY atorvastatin 20 mg tablet 20 mg PO BEDTIME Discharge Orders: Discharge ED (Routine); Ordered 08/01/25 Ordered By: Barbara Robbins Referrals: Michael Kumar DO [Primary Care Provider, [facility]] Patient Instructions: Opioid Safety, Pain Management, Patient Portal & [place] Instructions Activity Restrictions/Additional Instructions: As we discussed, CT imaging of her head and cervical spine were obtained and unremarkable. We did x-rays of her left shoulder, left ribs, and left hip/pelvis and these showed a left rib fracture. She will be given pain medications to help with discomfort. We also discussed conservative therapies such as ice and heat as well as lidocaine patches. Do not wrap her chest. She may return to the emergency department for any concerns that were not addressed on today's visit including severe back pain or abdominal pain. She may also return for worsening or uncontrollable discomfort or any other concerns she may have. 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
--- NOTE | 2025-08-01 16:41 | ECG_ITS ---
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1935 Requested By: Barbara Robbins Order Number: [id number] Elisabet MD: CHEPE HERNANDEZ Measurements Intervals [place] Rate: 59 P: 76 MA: 222 QRS: -34 QRSD: 121 T: 42 QT: 477 QTc: 475 Interpretive Statements SINUS BRADYCARDIA WITH FIRST DEGREE AV BLOCK LEFT AXIS DEVIATION [QRS AXIS < -30] RIGHT BUNDLE BRANCH BLOCK [120+ ms QRS DURATION, UPRIGHT V1, 40+ ms S IN I/aVL/V4/V5/V6] SEPTAL MYOCARDIAL INFARCTION , OF INDETERMINATE AGE [40+ ms Q WAVE IN V1/V2] Compared to ECG 10/20/2023 14:56:20 Left-axis deviation now present Left ventricular hypertrophy no longer present ST (T wave) deviation no longer present Myocardial infarct finding still present Electronically Signed On 08-03-2025 16:09:14 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
--- NOTE | 2025-08-01 16:41 | XRR_ITS ---
PROCEDURE INFORMATION: Exam: XR Left Hip Exam date and time: 08/01/2025 5:09 PM Age: 89 years old Clinical indication: Injury or trauma; Fall; Blunt trauma (contusions or hematomas); Left; Hip; Additional info: Fall/injury TECHNIQUE: Imaging protocol: Radiologic exam of the left hip. Views: 2 or 3 views hip with pelvis when performed. COMPARISON: CT ang ches abdpel [id number] 06/08/2022 2:46 PM FINDINGS: Bones/joints: No acute fracture or dislocation. Degenerative changes along the imaged axial skeletal system. Soft tissues: Right abdominal surgical clips. Vasculature: Mild peripheral arterial calcifications. XR/XR hip LT 2-3V wo/w pel* [id number] IMPRESSION: No acute findings.
--- NOTE | 2025-08-01 16:41 | XRR_ITS ---
PROCEDURE INFORMATION: Exam: XR Left Ribs with PA Chest Exam date and time: 08/01/2025 5:17 PM Age: 89 years old Clinical indication: Injury or trauma; Fall; Rib area, left side; Blunt trauma TECHNIQUE: Imaging protocol: Radiologic exam of the left ribs with PA chest. Views: 3 views COMPARISON: 1. CR XR chest 1V portable [id number] 06/23/2020 10:48 AM 2. CR XR chest 1V portable [id number] 06/08/2022 1:32 PM FINDINGS: Lungs: Mild chronic appearing peripheral bibasilar interstitial markings. No consolidation. Pleural spaces: Unremarkable. No pleural effusion. No pneumothorax. Heart/Mediastinum: Unremarkable. No cardiomegaly. Vasculature: Aortic atherosclerotic calcification. Bones/joints: Slight cortical irregularity at the lateral left 10th rib. Degenerative change along the spine. XR/XR ribs LT mn 3V w CXR1V [id number] IMPRESSION: Slight cortical irregularity at the lateral left 10th rib may represent fracture, correlate with point tenderness.
--- NOTE | 2025-08-01 16:41 | XRR_ITS ---
PROCEDURE INFORMATION: Exam: XR Left Shoulder Exam date and time: 08/01/2025 5:13 PM Age: 89 years old Clinical indication: Injury or trauma; Fall; Blunt trauma (contusions or hematomas); Shoulder; Left; Additional info: Fall/injury TECHNIQUE: Imaging protocol: Radiologic exam of the left shoulder. Views: 2 or more views. COMPARISON: 1. CT cervical spin wo con* [id number] 08/01/2025 5:02 PM 2. CR XR chest 1V portable [id number] 06/08/2022 1:32 PM FINDINGS: Bones/joints: No acute fracture or dislocation. Mild acromioclavicular joint arthropathy. Glenohumeral joint maintained. Small amorphous calcific densities adjacent to the greater tuberosity. Degenerative changes along the spine. Vasculature: Aortic and carotid atherosclerotic calcification. Soft tissues: Unremarkable. XR/XR shoulder LT min 2V* [id number] IMPRESSION: 1. No acute fracture or dislocation. 2. Evidence of rotator cuff calcific tendinitis.
--- NOTE | 2025-08-01 16:50 | CTR_ITS ---
PROCEDURE INFORMATION: Exam: CT Cervical Spine Without Contrast Exam date and time: 08/01/2025 5:02 PM Age: 89 years old Clinical indication: Injury or trauma; Fall; PT states she lost her balance and fell backwards. PT C/O left hip pain and left upper back pain. PT did hit the back of her head, no loc, PT states she is on blood thinners. TECHNIQUE: Imaging protocol: Computed tomography of the cervical spine without contrast. Radiation optimization: All CT scans at this facility use at least one of these dose optimization techniques: automated exposure control; mA and/or kV adjustment per patient size (includes targeted exams where dose is matched to clinical indication); or iterative reconstruction. COMPARISON: 1. CT ang ches abdpel [id number] 06/08/2022 2:[address] head wo con* [id number] 06/08/2022 2:43 PM RADIATION DOSE METRICS: Total DLP (mGy-cm): 157.6 FINDINGS: Bones: No acute fracture. Normal alignment. Mild multilevel cervical spine degenerative changes without severe spinal canal or neural foraminal stenosis. Lungs: Lung apices are clear. Thyroid: Stable asymmetric prominence of the right thyroid gland without discrete nodule. Vasculature: Bilateral carotid artery atherosclerotic calcification. Soft tissues: Unremarkable. CT/CT cervical spin wo con* [id number] IMPRESSION: No acute fracture or traumatic listhesis.
--- NOTE | 2025-08-01 16:50 | CTR_ITS ---
PROCEDURE INFORMATION: Exam: CT Head Without Contrast Exam date and time: 08/01/2025 5:02 PM Age: 89 years old Clinical indication: Injury or trauma; Fall; PT states she lost her balance and fell backwards. PT C/O left hip pain and left upper back pain. PT did hit the back of her head, no loc, PT states she is on blood thinners. ; Additional info: Trauma/fall TECHNIQUE: Imaging protocol: Computed tomography of the head without contrast. Radiation optimization: All CT scans at this facility use at least one of these dose optimization techniques: automated exposure control; mA and/or kV adjustment per patient size (includes targeted exams where dose is matched to clinical indication); or iterative reconstruction. COMPARISON: 1. CT head wo con* [id number] 06/08/2022 2:[address] head wo con* [id number] 06/06/2022 5:23 PM RADIATION DOSE METRICS: Total DLP (mGy-cm): 1227.7 FINDINGS: Brain: Diffuse cerebral atrophy, consistent with patient's age. No hemorrhage. No evidence of acute territorial infarct. Stable bilateral basal ganglia subcentimeter chronic lacunar infarcts versus prominent perivascular spaces. Diffuse bilateral cerebral white matter hypoattenuation is nonspecific but likely on the basis of chronic microvascular ischemic change. No mass effect. Cerebral ventricles: Stable prominence of the bilateral lateral and 3rd ventricles without acute hydrocephalus. Paranasal sinuses: Near complete opacification of right maxillary sinus with heterogeneous attenuation (irregular hyperattenuation peripherally with central hypoattenuation) increased from comparison exams. Otherwise clear without fluid levels. Mastoid air cells: Visualized mastoid air cells are well aerated. Orbital cavities: Bilateral lens replacement. Bones: Unremarkable. No acute fracture. Soft tissues: Unremarkable. Vasculature: Bilateral ICA calcifications. CT/CT head wo con* [id number] IMPRESSION: 1. No acute intracranial findings. 2. 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
[2025-08-01 17:20] LABS: Hematocrit 32.8 % (36-47); Hemoglobin 10.30 g/dL (11.27-16.99); Mean Corpuscular HGB Conc 31.4 g/dL (30-55); Mean Corpuscular Hemoglobin 29.3 pg (27-33); Mean Corpuscular Volume 93.4 fl (85-98); Nucleated Red Blood Cells % 0 %; Platelet Count 144 10^3/cmm (157-399); Red Blood Count 3.51 10^6/uL (3.85-5.65); White Blood Count 7.80 10^3/uL (3.29-11.43)
[2025-08-01 17:33] VITALS: O2SAT 100
[2025-08-01 17:48] LABS: Alanine Aminotransferase 21 U/L (0-33); Albumin Level 3.9 g/dL (3.5-5.2); Alkaline Phosphatase 88 U/L (35-105); Aspartate Amino Transferase 27 U/L (0-32); Blood Urea Nitrogen 33 mg/dL (8-23); Calcium 9.8 mg/dL (8.5-10.5); Carbon Dioxide 21 mmol/L (22-29); Chloride 101 mmol/L (98-107); Creatinine Clr Calc Pharmacy 20.4740; Globulin 3.4 g/dL (1.3-4.6); Glucose 95 mg/dL (65-115); Osmolality Calculated 291 mOsm/kg (285-295); Sodium 137 mmol/L (136-145); Total Protein 7.3 g/dL (6.6-8.7)
[2025-08-01 17:53] LABS: Anion Gap 19.6 (5-19); Potassium 4.6 mmol/L (3.5-5.1)
[2025-08-01 17:53] LABS: Glucose Urine UA Negative (Normal); Nitrate Urine Negative (Negative); Specific Gravity, Urine 1.011 (1.005-1.030)
[2025-08-01 17:59] LABS: Add Urine Microscopic? YES
[2025-08-01 18:07] LABS: UA Slide Review UA Slide Review Perf
[2025-08-01] MEDS: HYDROcodone-acetaminophen 5-325 mg Tablet 2 TAB PO (18:58)
[2025-08-01 19:33] VITALS: BP 146/72; PULSE 63; O2SAT 98
== END 2025-08-01 19:12 | disposition home or self-care (01) ==
PROVIDERS: Emergency Provider Physician Assistant; PCP Electrodiagnostic Medicine
DX: S22.32XA Fracture of one rib, left side, initial encounter for closed fracture (principal); W19.XXXA Unspecified fall, initial encounter; Z79.01 Long term (current) use of anticoagulants; I50.9 Heart failure, unspecified; N18.30 Chronic kidney disease, stage 3 unspecified
CPT/HCPCS: 36415; 70450; 71101; 72125; 73030; 73502; 80053; 81001; 85025; 93005; 99285; J9999

== ENCOUNTER 2025-08-14 14:31 | Oncology outpatient (recurring) (ONCR) | payer MEDICARE, OTHER, SELFPAY ==
[2025-08-14] MEDS: denosumab 60 mg SDV (Infusion Clinic Only) SUBCUT (14:52)
== END 2025-08-25 23:59 | disposition home or self-care (01) ==
LOC: ONCMED 14:31
PROVIDERS: PCP Electrodiagnostic Medicine; Visit Provider Family Medicine
DX: M81.0 Age-related osteoporosis without current pathological fracture (principal); Z79.899 Other long term (current) drug therapy
CPT/HCPCS: 96372; J0897